=== PATIENT | male | born 1990 | race Caucasian/White ===

== ENCOUNTER → 2017-01-17 | Outpatient (REF) | payer OTHER | LOC: M LAB REF 12:41 | PROVIDERS: ATTEND Physician Assistant | DX: J02.9 Acute pharyngitis, unspecified (principal) ==

== ENCOUNTER → 2018-12-19 | Outpatient (CLI) | payer MEDICAID | LOC: M OUTALCOH 07:53 | PROVIDERS: ATTEND Psychiatry & Neurology Psychiatry | DX: Z13.89 Encounter for screening for other disorder (principal); F15.20 Other stimulant dependence, uncomplicated ==

== ENCOUNTER 2019-01-21 08:45 | Outpatient (RCR) | payer MEDICAID | END 2019-01-22 | LOC: M OUTALCOH 08:45 | PROVIDERS: ATTEND Psychiatry & Neurology Psychiatry | DX: F15.20 Other stimulant dependence, uncomplicated (principal); F17.200 Nicotine dependence, unspecified, uncomplicated ==

== ENCOUNTER → 2019-02-20 | Outpatient (CLI) | payer MEDICAID, OTHER ==
[2019-02-20 10:19] LABS: HEMATOCRIT 52.2 % (42.0-52.0); HEMOGLOBIN 17.8 g/dl (13.5-17.5); MEAN CORPUSCULAR HEMOGLOBIN 29.2 pg (27.0-33.0); MEAN CORPUSCULAR HGB CONC 34.1 g/dl (32.0-36.5); MEAN CORPUSCULAR VOLUME 85.7 fl (80.0-96.0); PLATELET COUNT, AUTOMATED 307 10^3/uL (150-450); RED BLOOD COUNT 6.09 10^6/uL (4.30-6.10); WHITE BLOOD COUNT 10.9 10^3/uL (4.0-10.0)
[2019-02-20 10:42] LABS: ALBUMIN 3.4 GM/DL (3.2-5.2); ALT/SGPT 78 U/L (12-78); BILIRUBIN,TOTAL 0.3 MG/DL (0.2-1.0); BLOOD UREA NITROGEN 11 MG/DL (7-18); CALCIUM LEVEL 8.5 MG/DL (8.5-10.1); CARBON DIOXIDE LEVEL 26 MEQ/L (21-32); CHLORIDE LEVEL 103 MEQ/L (98-107); CHOLESTEROL LEVEL 195 MG/DL (< 200); CREATININE FOR GFR 0.77 MG/DL (0.70-1.30); GLOMERULAR FILTRATION RATE > 60.0 (>60); GLUCOSE, FASTING 123 MG/DL (70-100); POTASSIUM SERUM 4.5 MEQ/L (3.5-5.1); SODIUM LEVEL 138 MEQ/L (136-145); TOTAL PROTEIN 7.6 GM/DL (6.4-8.2); TRIGLYCERIDES LEVEL 155 MG/DL (<150)
[2019-02-20 10:50] LABS: HEPATITIS B SURFACE ANTIBODY POSITIVE (POSITIVE)
[2019-02-20 11:01] LABS: HEPATITIS B SURFACE ANTIGEN NEGATIVE (NEGATIVE)
[2019-02-20 11:20] LABS: HEMOGLOBIN A1c 5.9 %
== END ==
LOC: M LAB 09:41
PROVIDERS: ATTEND Internal Medicine
DX: Z00.00 Encounter for general adult medical examination without abnormal findings (principal); L81.8 Other specified disorders of pigmentation

== ENCOUNTER 2019-02-21 09:00 | Outpatient (RCR) | payer MEDICAID | END 2019-02-22 | LOC: M OUTALCOH 09:00 | PROVIDERS: ATTEND Psychiatry & Neurology Psychiatry | DX: F15.20 Other stimulant dependence, uncomplicated (principal); F17.200 Nicotine dependence, unspecified, uncomplicated ==

== ENCOUNTER 2019-03-05 09:00 | Outpatient (RCR) | payer MEDICAID | END 2019-03-24 | LOC: M OUTALCOH 09:00 | PROVIDERS: ATTEND Psychiatry & Neurology Psychiatry | DX: F15.20 Other stimulant dependence, uncomplicated (principal); F17.200 Nicotine dependence, unspecified, uncomplicated ==

== ENCOUNTER → 2019-04-24 | Outpatient (RCR) | payer MEDICAID | LOC: M OUTALCOH 04-05 13:20 | PROVIDERS: ATTEND Psychiatry & Neurology Psychiatry | DX: F15.20 Other stimulant dependence, uncomplicated (principal); F17.200 Nicotine dependence, unspecified, uncomplicated ==

== ENCOUNTER 2019-05-24 08:45 | Outpatient (RCR) | payer MEDICAID | END 2019-05-25 | LOC: M OUTALCOH 08:45 | PROVIDERS: ATTEND Psychiatry & Neurology Psychiatry | DX: F15.20 Other stimulant dependence, uncomplicated (principal); F17.200 Nicotine dependence, unspecified, uncomplicated ==

== ENCOUNTER 2019-06-20 09:00 | Outpatient (RCR) | payer MEDICAID | END 2019-06-24 | LOC: M OUTALCOH 09:00 | PROVIDERS: ATTEND Psychiatry & Neurology Psychiatry | DX: F15.20 Other stimulant dependence, uncomplicated (principal); F17.200 Nicotine dependence, unspecified, uncomplicated ==

== ENCOUNTER 2019-07-18 09:31 | Outpatient (RCR) | payer MEDICAID | END 2019-07-25 | LOC: M OUTALCOH 09:31 | PROVIDERS: ATTEND Psychiatry & Neurology Psychiatry | DX: F15.20 Other stimulant dependence, uncomplicated (principal); F17.200 Nicotine dependence, unspecified, uncomplicated ==

== ENCOUNTER → 2020-03-02 | Outpatient (CLI) | payer MEDICAID | LOC: M OUTALCOH 08:40 | PROVIDERS: ATTEND Psychiatry & Neurology Addiction Medicine | DX: Z13.39 Encounter for screening examination for other mental health and behavioral disorders (principal); F15.20 Other stimulant dependence, uncomplicated ==

== ENCOUNTER 2020-03-23 13:09 | Outpatient (RCR) | payer MEDICAID | END 2020-03-24 | LOC: M OUTALCOH 13:09 | PROVIDERS: ATTEND Psychiatry & Neurology Addiction Medicine | DX: F15.20 Other stimulant dependence, uncomplicated (principal); Z72.0 Tobacco use ==

== ENCOUNTER 2020-04-22 15:00 | Outpatient (RCR) | payer MEDICAID | END 2020-04-24 | LOC: M OUTALCOH 15:00 | PROVIDERS: ATTEND Psychiatry & Neurology Addiction Medicine | DX: F15.20 Other stimulant dependence, uncomplicated (principal); Z72.0 Tobacco use ==

== ENCOUNTER 2020-05-20 16:00 | Outpatient (RCR) | payer MEDICAID | END 2020-05-25 | LOC: M OUTALCOH 16:00 | PROVIDERS: ATTEND Psychiatry & Neurology Addiction Medicine | DX: F15.20 Other stimulant dependence, uncomplicated (principal); Z72.0 Tobacco use ==

== ENCOUNTER → 2020-06-24 | Outpatient (RCR) | payer MEDICAID | LOC: M OUTALCOH 05-26 15:02 | PROVIDERS: ATTEND Psychiatry & Neurology Addiction Medicine | DX: F15.20 Other stimulant dependence, uncomplicated (principal); Z72.0 Tobacco use ==

== ENCOUNTER 2020-07-23 09:00 | Outpatient (RCR) | payer MEDICAID | END 2020-07-25 | LOC: M OUTALCOH 09:00 | PROVIDERS: ATTEND Psychiatry & Neurology Addiction Medicine | DX: F15.20 Other stimulant dependence, uncomplicated (principal); Z72.0 Tobacco use ==

== ENCOUNTER 2020-08-13 09:00 | Outpatient (RCR) | payer MEDICAID | END 2020-08-24 | LOC: M OUTALCOH 09:00 | PROVIDERS: ATTEND Psychiatry & Neurology Addiction Medicine | DX: F15.20 Other stimulant dependence, uncomplicated (principal); Z72.0 Tobacco use ==

== ENCOUNTER → 2020-08-14 | Outpatient (CLI) | payer SELFPAY | LOC: M LABSMTC 12:57 | PROVIDERS: ATTEND Pediatrics | DX: Z20.828 Contact with and (suspected) exposure to other viral communicable diseases (principal) ==

== ENCOUNTER → 2020-08-30 | Outpatient (CLI) | payer SELFPAY | LOC: M LABSMTC 10:34 | PROVIDERS: ATTEND Pediatrics | DX: Z11.59 Encounter for screening for other viral diseases (principal) ==

== ENCOUNTER 2020-09-22 15:00 | Outpatient (RCR) | payer MEDICAID | END 2020-09-24 | LOC: M OUTALCOH 15:00 | PROVIDERS: ATTEND Psychiatry & Neurology Addiction Medicine | DX: F15.20 Other stimulant dependence, uncomplicated (principal); Z72.0 Tobacco use ==

== ENCOUNTER → 2020-10-06 | Outpatient (CLI) | payer SELFPAY | LOC: M LABSMTC 14:50 | PROVIDERS: ATTEND Pediatrics | DX: Z20.828 Contact with and (suspected) exposure to other viral communicable diseases (principal) ==

== ENCOUNTER 2020-10-23 14:32 | Outpatient (RCR) | payer MEDICAID | END 2020-10-25 | LOC: M OUTALCOH 14:32 | PROVIDERS: ATTEND Psychiatry & Neurology Psychiatry | DX: F15.20 Other stimulant dependence, uncomplicated (principal); Z72.0 Tobacco use ==

== ENCOUNTER 2020-10-30 13:36 | Inpatient (IN) | payer MEDICAID, OTHER ==
[~2020-10-30] VITALS: Ht 175.3 cm; Wt 142.8 kg
--- OUTSIDE RECORDS SUMMARY | 2020-10-30 13:42 | CCD ---
Author Author [facility] Address Unknown Phone Unavailable Care Team Providers Care Instructional Consultant Name Role Phone TURRIN, BRI Unavailable Unavailable TURRIN, BRI Unavailable Unavailable TURRIN, BRI Unavailable Unavailable TURRIN, BRI Unavailable Unavailable JOSETTEJin OWEN MD Unavailable Unavailable JOSETTEJin OWEN MD Unavailable Unavailable JOSETTE, Y MARIBEL REYNOLDS Unavailable Unavailable JOSETTEJin OWEN MD Unavailable Unavailable JOSETTEJin OWEN MD Unavailable Unavailable JOSETTE, Y MARIBEL REYNOLDS Unavailable Unavailable JOSETTE, Y MARIBEL REYNOLDS Unavailable Unavailable JOSETTE, Y MARIBEL REYNOLDS Unavailable Unavailable JOSETTE Y MARIBEL REYNOLDS Unavailable Unavailable JOSETTE Y MARIBEL REYNOLDS Unavailable Unavailable JOSETTE Y MARIBEL REYNOLDS Unavailable Unavailable JOSETTE Y MARIBEL Unavailable Unavailable JOSETTE, Y MARIBEL REYNOLDS Unavailable Unavailable JOSETTE, Y MARIBEL Unavailable Unavailable JOSETTE, Y MARIBEL REYNOLDS Unavailable Unavailable Re-disclosure Warning The records that you are about to access may contain information from federally-assisted alcohol or drug abuse programs. If such information is present, then the following federally mandated warning applies: This information has been disclosed to you from records protected by federal confidentiality rules (42 CFR part 2). The federal rules prohibit you from making any further disclosure of this information unless further disclosure is expressly permitted by the written consent of the person to whom it pertains or as otherwise permitted by 42 CFR part 2. A general authorization for the release of medical or other information is NOT sufficient for this purpose. The Federal rules restrict any use of the information to criminally investigate or prosecute any alcohol or drug abuse patient.The records that you are about to access may contain highly sensitive health information, the redisclosure of which is protected by Article 27-F of the [facility] Public Health law. If you continue you may have access to information: Regarding HIV / AIDS; Provided by facilities licensed or operated by the [facility] Office of Mental Health; or Provided by the [facility] Office for People With Developmental Disabilities. If such information is present, then the following [facility] mandated warning applies: This information has been disclosed to you from confidential records which are protected by state law. State law prohibits you from making any further disclosure of this information without the specific written consent of the person to whom it pertains, or as otherwise permitted by law. Any unauthorized further disclosure in violation of state law may result in a fine or fpc sentence or both. A general authorization for the release of medical or other information is NOT sufficient authorization for further disc losure. Allergies and Adverse Reactions Type Description Substance Reaction Status Data Source(s ) CLASS PENICILLINS (CLASS) PENICILLINS (CLASS) [facility] Family History Family Member Name Family Member Gender Family Member Status Date o f Status Description Data Source(s) Unknown Unknown Problem [facility] ([facility] pgf Encounters Encounter Providers Location Date Indications Data Source(s ) Emergency Attender: BRI ORTIZConsultant: MARIBEL OWEN MD 03/09/2020 12:39:00 PM EDT - 03/09/2020 03:20:00 PM T [facility] Patient discharged. Emergency Attender: BRI Maddoxltant: MARIBEL OWEN MD 03/04/2020 09:27:00 PM EDT - 03/04/2020 10:02:00 PM T [facility] Patient discharged. Medications Medication Brand Name Start Date Product Form Dose Route Admi nistrative Instructions Pharmacy Instructions Status Indications Reaction Description Data Source(s) 8-2 mg 09/03/2020 12:00:00 AM EST tablet, sublingual 30 PLACE ONE TABLET UNDER THE TONGUE EVERY DAY - MAXIMUM DAILY DOSE = 1 PLACE ONE TABLET UNDER THE TONGUE EVERY DAY - MAXIMUM DAILY DOSE = 1 SOLD: 09/04/2020 [facility] 8-2 mg 08/31/2020 12:00:00 AM EST film 7 PLACE ONE FILM UNDER THE TONGUE EVERY DAY MAXIMUM DAILY DOSE = 1 PLACE ONE FILM UNDER THE TONGUE EVERY DA Y MAXIMUM DAILY DOSE = 1 SOLD: 08/31/2020 [facility] 8-2 mg 07/01/2020 12:00:00 AM EDT film 30 USE 1 FILM UNDER THE TONGUE ONCE DAILY MAXIMUM DAILY DOSE =1 FILM USE 1 FILM UNDER THE TONGUE ONCE DAILY M AXIMUM DAILY DOSE =1 FILM SOLD: 07/01/2020 [facility] 100 mg 06/07/2020 12:00:00 AM EDT tablet 30 TAKE ONE TABLET BY MOUTH EVERY DAY TAKE ONE TABLET BY MOUTH EVERY DAY SOLD: 06/16/2020 [facility] 8-2 mg 06/02/2020 12:00:00 AM EDT film 30 PLACE ONE FILM UNDER THE TONGUE EVERY DAY MAXIMUM DAILY DOSE = 1 PLACE ONE FILM UNDER THE TONGUE EVERY DA Y MAXIMUM DAILY DOSE = 1 SOLD: 06/02/2020 [facility] 50 mg 05/29/2020 12:00:00 AM EDT tablet 45 TAKE 1 & 1/2 TABLETS (75MG) BY MOUTH ONCE DAILY TAKE 1 & 1/2 TABLETS (75MG) BY MOUTH ONCE DAILY SOLD: 05/29/2020 [facility] 50 mg 05/28/2020 12:00:00 AM EDT tablet 30 TAKE ONE TABLET BY MOUTH AT BEDTIME NEEDED TAKE ONE TABLET BY MOUTH AT BEDTIME NEEDED SOLD: [facility] 50 mg 05/28/2020 12:00:00 AM EDT tablet 30 TAKE ONE TABLET BY MOUTH AT BEDTIME NEEDED TAKE ONE TABLET BY MOUTH AT BEDTIME NEEDED SOLD: [facility] 8-2 mg 05/03/2020 12:00:00 AM EDT film 45 PLACE ONE FILM UNDER THE TONGUE EVERY MORNING AND PLACE ONE-HALF FILM UNDER THE TONGUE EVERY EVENING MAXIMUM DAILY DOSE = ONE AND ONE-HALF FILMS PLACE ONE FILM UNDER THE TONGUE EVERY MORNING AND PLACE ONE-HALF FILM UNDER THE TONGUE EVERY EVENING MAXIMUM DAILY DOSE = ONE AND ONE-HALF FILMS SOLD: 05/04/2020 [facility] 8-2 mg 04/26/2020 12:00:00 AM EDT film 11 PLACE ONE FILM UNDER THE TONGUE EVERY DAY IN THE MORNING AND 1/2 FILM AT NIGHT MAXIMUM DAILY DOSE = 1 1/[address] ONE FILM UNDER THE TONGUE EVERY DAY IN THE MORNING AND 1/2 FILM AT NIGHT MAXIMUM DAILY DOSE = 1 1/2 FILMS SOLD: 04/27/2020 [facility] 8-2 mg 04/18/2020 12:00:00 AM EDT film 11 PLACE 1 FILM UNDER THE TONGUE IN THE MORNING AND 1/2 AT BEDTIME, MAX DAILY DOSE=1&1/[address] PL[address] 1 FILM UNDER THE TONGUE IN THE MORNING AND 1/2 AT BEDTIME, MAX DAILY DOSE=1&1/2 SOLD: 05/01/2020 [facility] 8-2 mg 03/19/2020 12:00:00 AM EDT film 45 PLACE 1 FILM UNDER THE TONGUE EVERY MORNING AND ONE-HALF FILM AT BEDTIME MAXIMUM DAILY DOSE = 1 AND ONE-HALF FILM PLACE 1 FILM UNDER THE TONGUE EVERY MORN ING AND ONE-HALF FILM AT BEDTIME MAXIMUM DAILY DOSE = 1 AND ONE-HALF FILM SOLD: 03/20/2020 [facility] 40 mg 03/13/2020 12:00:00 AM EDT capsule,delayed release (DR/EC) 30 TAKE CAPSULE BY MOUTH 30 MINUTES BEFORE MORNING MEAL TAKE CAPSULE BY MOUTH 30 MINUTES BEFORE MORNING MEAL SOLD: 05/27/2020 [facility] 150 mg 03/13/2020 12:00:00 AM EDT tablet sustained-releas e 12 hr 60 TAKE TWO TABLETS BY MOUTH EVERY MORNING TAKE TWO TABLETS BY MOUTH EVERY MORNING SOLD: 06/24/2020 [facility] 150 mg 03/13/2020 12:00:00 AM EDT tablet sustained-releas e 12 hr 60 TAKE TWO TABLETS BY MOUTH EVERY MORNING TAKE TWO TABLETS BY MOUTH EVERY MORNING SOLD: 04/17/2020 [facility] 150 mg 03/13/2020 12:00:00 AM EDT tablet sustained-releas e 12 hr 60 TAKE TWO TABLETS BY MOUTH EVERY MORNING TAKE TWO TABLETS BY MOUTH EVERY MORNING SOLD: 05/27/2020 [facility] 40 mg 03/13/2020 12:00:00 AM EDT capsule,delayed release (DR/EC) 30 TAKE CAPSULE BY MOUTH 30 MINUTES BEFORE MORNING MEAL TAKE CAPSULE BY MOUTH 30 MINUTES BEFORE MORNING MEAL SOLD: 08/27/2020 [facility] Omeprazole 40 MG Delayed Release Oral Capsule OMEPRAZOLE 03/13/2020 12:00:00 AM EDT capsule,delayed release(DR/EC) 30 T MIRIAN CAPSULE BY MOUTH 30 MINUTES BEFORE MORNING MEAL TAKE CAPSULE BY MOUTH 30 MINUTES BEFORE MORNING MEAL S OLD: 03/13/2020 [facility] 150 mg 03/13/2020 12:00:00 AM EDT tablet sustained-releas e 12 hr 60 TAKE TWO TABLETS BY MOUTH EVERY MORNING TAKE TWO TABLETS BY MOUTH EVERY MORNING SOLD: 03/13/2020 [facility] 800-160 mg 03/09/2020 12:00:00 AM EDT tablet 20 TAKE ONE TABLET BY MOUTH TWICE A DAY TAKE ONE TABLET BY MOUTH TWICE A DAY SOLD: 03/11/2020 [facility] 300 mg 03/05/2020 12:00:00 AM EDT capsule 30 TAKE ONE CAPSULE BY MOUTH THREE TIMES A DAY FOR 10 DAYS TAKE ONE CAPSULE BY MOUTH THREE TIMES A DAY FOR 10 DAY S SOLD: 03/05/2020 [facility] Insurance Providers Payer name Policy type / Coverage type Policy ID Covered alliance party ID Covered alliance party's relationship to peacock Policy Peacock Plan Information [facility] [id number] SP [id number] SELF PAY ONLY [id number] SP [id number] [facility] AMERICHOICE XIX O [id number] 18 [id number] [facility] AMERICHOICE XIX O [id number] 18 [id number] [facility] PLAN [facility] [id number] SP [id number] ANS-Medicaid [id number] ANSI-Medicaid [id number] [facility] COMMUNITY PLAN [facility] [id number] SP [id number] [facility] [id number] SP [id number] ANS-Medicaid [id number] SELF PAY ONLY UNAVAILABLE SP UNAV AILABLE BCBS/[employer] Commercial [id number] Self YN [id number] [facility]LY [facility] [id number] [id number] [facility] [id number] 18 [id number] [facility]/P [id number] 18 [id number] Problems, Conditions, and Diagnoses Code Display Name Description Problem Type Effective Dates Data Source(s) I03912 Nicotine dependence, cigarettes, uncompl icated Nicotine dependence, cigarettes, uncomplicated Diagnosis 03/09/2020 12:39:00 PM EDT [facility] L723 Sebaceous cyst Sebaceous cyst Diagnosis 03/09/2020 12:39: 00 PM EDT [facility] L988 Other specified disorders of the skin an d subcutaneous tissue Other specified disorders of the skin and subcutaneous tissue Diagnosis 03/09/2020 12:39:00 PM EDT [facility] [id number] Cutaneous abscess of right axilla Cutaneous absc ess of right axilla Diagnosis 03/04/2020 09:27:00 PM EDT [facility] D85375 Furuncle of right axilla Furuncle of right axilla Diag nosis 03/04/2020 09:27:00 PM EDT [facility] Results ID Date Data Source [id number] 10/06/2020 12:00:00 AM EST [facility] Name Value Range Interpretation Code Description Data Catalina rce(s) Supporting Document(s) SARS-CoV-2 (COVID-19) RNA [Presence] in Respiratory specimen by MATIAS with probe detection Not Detected [facility] This lab was ordered by [facility] and reported by [facility]. ID Date Data Source [id number] 10/02/2020 12:00:00 AM EST [facility] Name Value Range Interpretation Code Description Data Catalina rce(s) Supporting Document(s) Carestart Rapid COVID Antigen Test Positive [facility] This lab was reported by [facility]. ID Date Data Source [id number] 08/30/2020 12:00:00 AM EST [facility] Name Value Range Interpretation Code Description Data Catalina rce(s) Supporting Document(s) 2019-nCoV RNA XXX MATIAS+probe-Imp [facility] This lab was ordered by [facility] and reported by [facility] ID Date Data Source [id number] 08/14/2020 12:00:00 AM EST [place] Name Value Range Interpretation Code Description Data Catalina rce(s) Supporting Document(s) 2019-nCoV RNA XXX MATIAS+probe-Imp [facility] This lab was ordered by [facility] and reported by [facility] ID Date Data Source [id number] 03/10/2020 08:52:00 AM EDT [facility] [address] [place] [address] PHONE: [phone] FAX: [phone] Name .................. : MARLON SHIN Acct Number.................. : [id number] ROOM. ................. : TR-04 MR Number ................... : [id number] Stay type ............. : E/R Discharge Date......... ... : 03/09/20 Admit Date ......... : 03/09/20 Admit Phys .................... : ANGEL PELAYO Date of ....... : 1990 Family Phys ................... : JOSETTE ALONZO Phone .................. : [phone] Age ................................ : 29 Film# .................. .:[id number] Sex ................................. : M Unsigned transcriptions are preliminary reports and do not represent a medical or legal document US EXT-NON VASCULAR RT COMPL [id number] COMPLETE:03/09/20 14:15 B 18004 Reason(s): Arm ULTRASOUND OF THE RIGHT AXILLA: INDICATION: Arm swelling. FINDINGS: There is a heterogeneous complex area with irregular margins in the right axilla measuring 2.2 x 3.1 x 2.1 cm. An underlying abscess cannot be excluded. IMPRESSION: Complex area of indeterminant significance and etiology, as discussed above. An underlying abscess is not excluded. Clinical correlation is recommended. Examination dictated by ANDREA Fraire. Examination was reviewed with Steven Roque MD, radiologist at the time of this dictation. Electronically Reviewed and Signed By Steven Roque MD , 03/10/20 08:52, KGG Transcribe Initials: SMITA , Transcribe Date: 03/10/20 01:32, Dictation Date: Copy for: EYAD GARCÍA via fax Copy for: EMERGENCY DEPT via modem Copy for: 710 MED REC DISCHARGED Page 1 of 1 Name Value Range Interpretation Code Description Data Catalina rce(s) Supporting Document(s) ID Date Data Source [id number] 03/09/2020 12:39:00 PM EDT [facility] 1 OrderSheet [facility] Emergency Department [address] [place] [address] Phone #: ext- [phone] 03/09/2020 12:37 Patient: ALEIDA MASON Sex: M : 1990 Age: 29yWEIGHT:125.6 kg (S) HEIGHT:69 inches (S) BMI:40.9ALLERGIES: PenicillinsCHIEF COMPLAINT: lesion, boil, tender areaDIAGNOSIS: Epidermoid cyst of skinLAB ORDERSOrder Description Priority Entered Acknowledged InitialedCulture, Wound STAT 14:58 03/09/2020 15:01 Sinan,(Arm) Luis Angel Brantley R.N. PA;DIAGNOSTIC STUDY ORDERSOrder Description Priority Entered Acknowledged InitialedUS Ext STAT 13:30 03/09/2020 14:09 Sinan,Nonvascular Right Luis Angel Brantley R.N.(Oxygen?(No)) ANDREA; NOTES: Right Axillary Abscss Reason for Study: Arm, Red, SwellingMEDICATION/IV/DRIP/FLUID ORDERSOrder Description Priority Entered Acknowledged InitialedGENERAL ORDERSOrder Description Priority Entered Acknowledged Initialed[Electronically signed by Karon Menon R.N. (15:24 03/09/2020)][Electronically signed by Luis Angel Garcia (21:51 03/09/2020)][Electronically locked by Karon Menon R.N. (15:24 03/09/2020)] Name Value Range Interpretation Code Description Data Catalina rce(s) Supporting Document(s) ID Date Data Source [id number] 03/09/2020 12:39:00 PM EDT [facility] 1 Medication Reconciliation Report [facility] Emergency Department [address] [place] [address] Phone #: ext- [phone] 03/09/2020 12:37 Patient: ALEIDA MASON Sex: M : 1990 Age: 29yWeight: 125.6 kgHeight/Length: 69 in.BMI: 40.9ALLERGIES: PenicillinsThe patient's Home Medications are listed below:CONTINUE TAKING THE FOLLOWING MEDICATIONS: Clindamycin HCl Oral 300 mg, 3x a day Omeprazole Oral 20 mg, daily Suboxone Sublingual (12-3 mg), 2x a day traZODone HCl Oral 100 mg, daily, at bedtime Wellbutrin Oral 300 mg, daily Zoloft Oral 75 mg, dailyThe source(s) of the original Home Medication information:patientThe following Medications were given to the patient in the Emergency Department:None.The following Medications were prescribed to the patient:Bactrim DS 800 mg-160 mg tablet Take 1 tablet twice a day for 10 days -- Dispense 20 tablet. Refills:0. Substitution permitted.Pharmacy - [id number] - [address] [facility] ; [place], [place] [id number]. . -- ANDREA Ware Name Value Range Interpretation Code Description Data Catalina rce(s) Supporting Document(s) ID Date Data Source [id number] 03/09/2020 12:39:00 PM EDT [facility] 1 Medication Administration Record [facility] Emergency Department [address] [place] [address] Phone #: ext [phone] 03/09/2020 12:37 Patient: ALEIDA MASON Sex: M : 1990 Age: 29yWeight: 125.6 kgHeight/Length: 69 inBMI: 40.9ALLERGIES: PenicillinsDate/Time Medication Administered Medication Ordered Name Value Range Interpretation Code Description Data Catalina rce(s) Supporting Document(s) ID Date Data Source [id number] 03/09/2020 12:39:00 PM EDT [facility] 1 General Instructions [facility] Emergency Department [address] [place] [address] Phone #: ext [phone] 03/09/2020 12:37 Patient: ALEIDA MASON Sex: M : 1990 Age: 29ySebaceous cystINSTRUCTIONSWarnings: Further evaluation is necessary.GENERAL WARNINGS: Return or contact your physician immediately if your condition worsens orchanges unexpectedly, if not improving as expected, or if other problems arise. Specifically return if pain orfever worsens.Your Current Medications: Your current home medications have been reviewed.CONTINUE TAKING THE FOLLOWING MEDICATIONS:Clindamycin HCl Oral : 300 mg 3x a day, Started: 03/03/20.Omeprazole Oral : 20 mg daily.Suboxone Sublingual : Film 12-3 mg, 2x a day.traZODone HCl Oral : 100 mg daily, at bedtime.Wellbutrin Oral : 300 mg daily.Zoloft Oral : 75 mg daily.Prescription Medications:Bactrim DS 800 mg- 160 mg tablet Take 1 tablet twice a day for 10 days -- Dispense 20 tablet. Refills:0. Substitution permitted.Pharmacy - [facility] - [address] [place] [address] ; [place], [place] [id number]. .Follow-up:Follow up with your doctor in three days for wound check. Reason for referral: evaluation and treatment.Summary of care provided to patient.Understanding of the discharge instructions verbalized by patient. ADDITIONAL INFORMATIONEpidermoid Cyst (Sebaceous Cyst), Infected (Incision and Drainage)You have an epidermoid cyst. This is a small, painless lump under your skin. An epidermoidcyst (often called a sebaceous cyst, epidermal cyst, or epidermal inclusion cyst) is a term most oftenused for 2 similar types of cysts: 2 General Instructions [facility] Emergency Department [address] [place] [address] Phone #: ext- [phone] 03/09/2020 12:37 Patient: ALIEDA MASON Sex: M : 1990 Age: 29y Epidermoid cysts. These cysts form slowly under the skin. They can be found on most parts of the body. But they are most often found on areas with more hair such as the scalp, face, upper back, and genitals. Pilar cysts. These are similar to epidermoid cysts. But they start from a different part of the hair follicle. They are more likely to be on the scalp.Some general facts about these cysts: A cyst is a sac filled with material that is often cheesy, fatty, oily, or stringy. The material inside them can be thick. Or it can be a thin liquid. You can usually move the cyst slightly if you try. The cysts can be smaller than a pea or as large as a few inches. The cysts are usually not painful, unless they become inflamed or infected. The area around the cyst may smell bad. If the cyst breaks open, the material inside it often smells bad too.Your cyst became inflamed or infected and your healthcare provider wanted to drain it. Gauzepacking may have been inserted into the cyst opening (cavity). This keeps the cyst open so it doesn'tseal up before it has time to drain more. No matter how well it was cleaned out, no cleaning is perfect.The packing will need to be removed.Once the pus is drained, antibiotics may not be needed unless the infection has spread into the skinaround the wound. The wound will take about 1 to 2 weeks to heal, depending on the size of theabscess.Home careThe following will help you care for your wound at home: The wound may d rain for the first 2 days. Cover the opening with a clean dry bandage. If the dressing becomes soaked with blood or pus, change it. If a gauze packing was placed inside the opening of the cyst, it will need to be removed. Your healthcare provider will usually do this after 2 days. If it falls out sooner, do not try to put it back inside the wound. Once the packing is removed, you should wash the area carefully in the shower once a day, until the skin opening has closed. This could take up to 5 days depending on the size of the cyst. It is good to direct the shower spray directly into the opening if this is not too painful. If you were prescribed antibiotics, take them as directed until they are all used up. You may use tuso-xoe-uhzndys pain medicine to control pain, unless another medicine was 3 General Instructions [facility] Emergency Department [address] [place] [address] Phone #: ext- [phone] 03/09/2020 12:37 Patient: ALEIDA MASON Sex: M : 1990 Age: 29y given. If you have chronic liver or kidney disease or ever had a stomach ulcer or GI bleeding, talk with your provider before using these medicines.PreventionOnce this infection has healed, use these prevention tips to avoid another infection: Keep the cyst opening clean by bathing or showering daily. Avoid tight-fitting clothing in the cyst area. Watch for the signs of infection listed below so that treatment may be started early.Follow-up careFollow up with your healthcare provider, or as advised. If a gauze packing was put in your wound, itshould be removed as instructed by your healthcare provider. Check your wound every day for thesigns listed below.When to seek medical adviceCall your healthcare provider right away if any of these occur: Pus continues to come from the cyst 2 days after the incision and drainage Increasing redness around the wound. Increasing local pain or swelling Fever of 100.4F (38C) or higher, or as directed by your provider [id number] [employer]. [address] [place] [address]. All rights reserved. This information is not intended as asubstitute for professional medical care. Always follow your healthcare professional's instructions. You have been given the following additional information: Epidermoid Cyst (Sebaceous Cyst), Infected (Incision and Drainage)(Electronically signed by ANDREA Ware 03/09/2020 21:51) Name Value Range Interpretation Code Description Data Catalina rce(s) Supporting Document(s) ID Date Data Source [id number] 03/09/2020 12:39:00 PM EDT [facility] 1 Clinical Report - Nurses [facility] Emergency Department [address] [place] [address] Phone #: [phone]- [phone] 03/09/2020 12:37 Patient: ALEIDA MASON Sex: M : 1990 Age: 29yTRIAGEArrived by private vehicle. Historian: patient. Accompanied by (Dropped off by fiance).Triage time: 12:38 03/09/2020. Acuity: LEVEL 4.Chief Complaint: BOIL.Alert. No acute distress.Location - right axilla. Onset. (6 days ago). It is described as painful. ( Pt states he was seen in this EDfor the same issue on 03/03/20 however it was just forming. Pt states he was d/c on Clindamycin whichhe is still taking but pt states it is getting bigger/more painful; Pt states he tried to pop it yesterday but wasunsuccessful.).Treatment MEDICAL DOSIMETRIST:(Ibuprofen last dose just prior to arrival 600mg;).SEPSIS SCREEN: SIRS Screen negative: heart rate greater than 90. Sepsis Screen positive. Suspected /confirmed signs of infection present. (12:44 03/09/2020). --12:44 03/09/20 Sonal Calderon R.N.12:43 03/09/20. BP: 126/67. MAP: 86. HR: 96. RR: 20. O2 saturation: 95% on room air. Temp: 98.5 F(temporal). Pain level now: 07/04. --12:44 03/09/20 Sonal Calderon R.N.Weight: 125.6 kg stated. Height/Length: 69 inches Per Patient. BMI: 40.9. --12:38 03/09/20 Sonal Calderon R.N.MedicationsOmeprazole Oral 20 mg, daily. Suboxone Sublingual (Film 12-3 mg), 2x a day. Wellbutrin Oral 300 mg, daily. --12:40 03/09/20 Sonal Calderon R.N. Zoloft Oral 75 mg, daily. --12:40 03/09/20 Sonal Calderon R.N. traZODone HCl Oral 100 mg, daily at bedtime. --12:40 03/09/20 Sonal Calderon R.N. Clindamycin HCl Oral 300 mg, 3x a day, started 03/03/20. --12:41 03/09/20 Sonal Calderon R.N.AllergiesPenicillins.(hives) --12:40 03/09/20 Sonal Calderon R.N.PROBLEMS:Knee Injury.Abscess.Rehab: (Narcotics).Lower Extremity Pain. --12:41 03/09/20 Sonal Calderon R.N. 2 Clinical Report - [facility]es [facility] [facility] [address] [place] [address] Phone #: ext- [phone] 03/09/2020 12:37 Patient: ALEIDA MASON Sex: M : 1990 Age: 29y Medication/allergy information source: the patient. --12:44 03/09/20 Sonal Calderon R.N. ADDITIONAL SURGERIES: Pilonidal cyst. --12:41 03/09/20 Sonal Calderon R.N. History PAST MEDICAL HX: Immunizations: up-to-date. SOCIAL HX: Current every day heavy tobacco smoker (cigarette)- 1 pack per day. No alcohol use or drug use. He was offered HIV testing but declined. Patient education was provided. He was offered hepatitis C testing but declined. Patient education was provided. ( COVID screen negative; Pt came back from [place] on 02/26/20). He has not traveled outside the [place] Infectious disease exposure: No infectious disease exposure. Patient is not a known carrier of tuberculosis, hepatitis, HIV, MRSA or VRE. Patient is not a known carrier of CRE. SELF HARM ASSESSMENT: Self harm assessment was performed. The patient answered "no" to the question(s) "Do you have thoughts of harming or killing yourself?" and "Do you have a plan for harming or killing yourself?". ABUSE ASSESSMENT: Abuse assessment. The patient had positive responses to the question(s) "Do you feel safe in your home?". Abuse denied. No suspicion of abuse. No report of abuse. NUTRITIONAL RISK ASSESSMENT: The nutritional risk assessment revealed no deficiencies. FUNCTIONAL ASSESSMENT: Functional as sessment: no impairments noted. LEARNING NEEDS ASSESSMENT: The learning needs assessment revealed no barriers. FALL RISK ASSESSMENT: Fall risk assessment completed. No risk factors identified. SKIN INTEGRITY ASSESSMENT: Skin integrity risk assessment completed. No skin integrity risk identified. --12:44 03/09/20 Sonal Calderon R.N. Interventions Identification band on patient. --12:44 03/09/20 Sonal Calderon R.N.PHYSICAL ASSESSMENTAmbulatory to room. Patient gowned.GENERAL / NEURO / PSYCH: Alert. The patient does not appear to be in acute distress. Oriented X 4.HEENT: Pupils equal, round and reactive to light. Mucous membranes are pink.RESPIRATORY: Respirations not labored. Breath sounds within normal limits.CVS: Capillary refill less than 2 seconds. Pulses within normal limits.GI / : Abdomen nontender.SKIN: ( boil to right axilla, erythema, warmth and tender to touch.). --12:52 03/09/20 Karon Menon R.N. 3 Clinical Report - Nurses [facility] Emergency Department [address] [place] [address] Phone #: ext- [phone] 03/09/2020 12:37 Patient: ALEIDA MASON Sex: M : 1990 Age: 29yNURSING PROGRESS NOTESPatient gowned. Reassurance given. Call light placed in reach. Bed placed in lowest position. Brakesof bed on. Patient ready for evaluation- PA notified. --12:53 03/09/20 Karon Menon R.N. 12:58 03/09/2020 Site #1 started via IV in the right antecubital space with an 20g angiocath, with aseptic technique and good blood return; one attempt. Saline lock flushed with 10 mL saline. --12:58 03/09/20 Karon Menon R.N. Patient transported to radiology by wheelchair. --14:09 03/09/20 Karon Menon R.N. 14:13 03/09/20. Patient returned from radiology by wheelchair. --14:18 03/09/20 Karon Menon R.N. ( general surgeon into assess patient). --14:35 03/09/20 Karon Menon R.N. I D: Incision and Drainage of abscess performed by ANDREA (ANDREA student and Luis Angel MENDEZ). Assisted by one nurse and tech. Preparation: suture tray set-up with 1% lidocaine. Procedure: skin cleansed with Betadine; a moderate amount of pus was drained. Cavity was packed with gauze. Sample obtained for cultures. Post- procedure: he was stable, no complications and patient tolerated the procedure well. Total time of assist / procedure: (10 minutes). --15:01 03/09/20 Karon Menon R.N. Checked patient name and birthdate. Wound swabbed for culture; collected by nurse. --15:01 03/09/20 Karon Menon R.N.DISPOSITION / DISCHARGE 15:10 03/09/20. BP: 130/84. HR: 78. RR: 19. O2 saturation: 99%. Temp: 98.6 F. Pain level now 5/10. --15:10 03/09/20 Lissie compliance reviewerJaylen Best, ER Tech1 No learning barriers present. Discharge instructions provided and reviewed with the patient. Reviewed medication(s). Prescription(s) sent electronically to pharmacy. Reviewed referral to a primary care physician. Activity restrictions (rest) reviewed. Patient verbalized understanding. Written instructions provided in Dominican. --15:23 03/09/20 Karon Menon R.N. Departure time: 15:19 03/09/2020. --15:24 03/09/20 Karon Menon R.N.Locked/Released at 03/09/2020 15:24 by Karon Mneon R.N. Name Value Range Interpretation Code Description Data Catalina rce(s) Supporting Document(s) ID Date Data Source [id number] 03/09/2020 12:39:00 PM EDT [facility] 1 Clinical Report - Physicians/Mid Levels [facility] Emergency Department [address] [place] [address] Phone #: ext- [phone] 03/09/2020 12:37 Patient: ALEIDA MASON Sex: M : 1990 Age: 29y Time Seen: 12:49 03/09/2020. Arrived- By private vehicle. Historian- patient.HISTORY OF PRESENT ILLNESS Chief Complaint: LESION, BOIL and TENDER AREA. This started 6 days ago and is still present. It is described as moderately painful. It has been located in the right axilla. (29 y/o male presents today for worsening abscess to his R axilla that began 6 days ago. Pt was seen in this ED on 03/03/2020 for same complaint, and d/c home on Clindamycin. Pt reports that abscess to his R axilla began with small area of redness and pain that has been worsening since onset despite Clindamycin regimen. Pt reports erythema began spreading 4 days ago, improved 2 days ago, and worsened again today. the area of pain and hardness has been getting bigger since onset.). Similar symptoms previously. Patient has had similar symptoms several times. ( Hx of prior abscesses and cysts). Recent medical care: The patient was seen recently in the emergency department. ( Recently seen in this ED on 03/03/2020 for same problem, d/c home on Clindamycin).REVIEW OF SYSTEMSNo fever, sore throat, cough, difficulty breathing or hoarseness. No headache, chest pain, abdominalpain, nausea or diarrhea. No vomiting. He has had chills (today).PAST HISTORYProblems:Abscess. Medications: Clindamycin HCl Oral 300 mg, 3x a day, started 03/03/20. traZODone HCl Oral 100 mg, daily at bedtime. Zoloft Oral 75 mg, daily. Omeprazole Oral 20 mg, daily. Suboxone Sublingual (Film 12- 3 mg), 2x a day. Wellbutrin Oral 300 mg, daily. Allergies: Penicillins.(hives).SOCIAL HISTORYCurrent every day heavy tobacco smoker (cigarette)- 1 pack per day. No alcohol use or drug use.ADDITIONAL NOTES 2 Clinical Report - Physicians/Mid Levels [facility] Emergency Department [address] [place] [address] Phone #: ext- [phone] 03/09/2020 12:37 Patient: ALEIDA MASON Sex: M : 1990 Age: 29y The nursing notes have been reviewed.PHYSICAL EXAMVital Signs: 03/09/2020 12:43 BP: 126/67. MAP: 86. HR: 96. RR: 20. O2 saturation: 95% on room air.Temp: 98.5 F. Pain level now: 10/10. Have been reviewed. Oxygen saturation normal.Appearance: Alert. Oriented X3. No acute distress.ENT: Ears normal. Nose normal.Neck: Neck supple.CVS: Normal heart rate and rhythm. Heart sounds normal. Pulses: right radial 2+; left radial 2+; rightdorsalis pedis 2+; left dorsalis pedis 2+; right posterior tibial 2+; left posterior tibial 2+.Respiratory: No respiratory distress. Breath sounds normal. Chest nontender.Abdomen: Nontender.Skin: Skin warm and dry. Normal skin color. Erythema with tenderness to right axilla. Single mediumabscess to right axilla (length:4 cm width:3 cm). There is induration.Extremities: Extremities nontender. Right shoulder. Limited ROM due to pain (diminished internalro tation). Neurovascular intact distally.Neuro: Oriented X 3. No motor deficit. No sensory deficit.LABS, X-RAYS, AND EKGUpper Extremity Sonography: Negative exam on the right side. 2.2 x 3.1 x 2.1cm complex structure atarea of interest, can't exclude abscess. The exam was performed by a master motorcycle technician. The study wasinterpreted by the radiologist and contemporaneously by me. Interpretation time: 15:03/09/2020.PROGRESS AND PROCEDURESIncision Drainage of Abscess: Time: 14:45 03/09/2020. The abscess is located in the right shoulder.The risks of the procedure, benefits and alternatives were explained. Consent was obtained. Localanesthesia provided using 1% lidocaine with epi. Skin cleansed with Betadine. Ultrasound utilized toconfirm presence of abscess. The abscess was incised with a #11 surgical blade. Cavity was irrigated withsaline and packed with gauze. Sample obtained for cultures and gram stain. A dressing was applied.Estimated blood loss: 2 mL. Course of Care: 14:59 Mar 09 2020. Evaluation after observation. (Discussed with Dr Escalera who examined pt in the ED and recommended I and D, pt is agreeable with dx and tx plan.). Patient counseled in person regarding the patient's stable condition, test results, diagnosis and need for follow-up. Patient agrees with plan of care. 15:Mar 09 2020. Disposition: Discharged home in good and improved condition (15:02 Mar 09 2020).CLINICAL IMPRESSION Sebaceous cyst 3 Clinical Report - Physicians/Mid Levels [facility] Emergency Department [address] [place] [address] Phone #: ext- [phone] 03/09/2020 12:37 Patient: ALEIDA MASON Sex: M : 1990 Age: 29yINSTRUCTIONS Warnings: Further evaluation is necessary. GENERAL WARNINGS: Return or contact your physician immediately if your condition worsens or changes unexpectedly, if not improving as expected, or if other problems arise. Specifically return if pain or fever worsens. Your Current Medications: Your current home medications have been reviewed. CONTINUE TAKING THE FOLLOWING MEDICATIONS: Clindamycin HCl Oral : 300 mg 3x a day, Started: 03/03/20. Omeprazole Oral : 20 mg daily. Suboxone Sublingual : Film 12-3 mg, 2x a day. traZODone HCl Oral : 100 mg daily, at bedtime. Wellbutrin Oral : 300 mg daily. Zoloft Oral : 75 mg daily. Prescription Medications: Bactrim DS 800 mg-160 mg tablet Take 1 tablet twice a day for 10 days -- Dispense 20 tablet. Refills: 0. Substitution permitted. Pharmacy - [id number] - [address] [place] [address] ; [place], [place] [phone]. . Follow- up: Follow up with your doctor in three days for wound check. Reason for referral: evaluation and treatment. Summary of care provided to patient. Understanding of the discharge instructions verbalized by patient.(Electronically signed by ANDREA Ware 03/09/2020 21:51) Name Value Range Interpretation Code Description Data Catalina rce(s) Supporting Document(s) ID Date Data Source [id number] 03/12/2020 10:22:00 PM EDT [facility] Name Value Range Interpretation Code Description Data Catalina rce(s) Supporting Document(s) CULTURE WOUND [facility] _CULTURE WOUND_$$[id number] DATE/TIME: 03/12/2020 17:06Culture: CULTURE WOUND Status: FinalIsolate 1 Staphylococcus aureus Flag: A . . . . . . .3Heavy growthMethicillin resistant (MRSA)Based on resistance to oxacillin this isolate would be resistant toall currently available beta-lactam antimicrobial agents, with theexception of the newer cephalosporins with anti-MRSA activity, such asCeftaroline Previous result entered on 03/12/2020 05:50 ET Staphylococcus aureusAerobic Bacterial Culture: [id number] aureus Flag: APatient: MARLON SHIN Order: [id number] Page 2Culture: CULTURE WOUND Status: Final ISOLATE 1 Staphylococcus aureus Isolate 1Antibiotic MALENA IntUnits ug/mL Ciprofloxacin R R . . . . . .185-9Clindamycin R R . . . . . .193- 3Erythromycin R R . . . . . .233-7Gentamicin S S . . . . . .267-5Levofloxacin I I . . . . . .56672-4Ghoikoobe S S . . . . . .63538-7Orzjjjebs R R . . . . . .383-0Penicillin R R . . . . . .6932-8Rifampin S S . . . . . .428- 3Tetracycline S S . . . . . .496-0Trimethoprim/Sulfa S S . . . . . .516-5Vancomycin S S . . . . . .524-9P1 Test performed by: [facility] #: [id number] [address] [place] [id number] [facility] [id number] Director : Tim Goodrich MD NPI #:Gas Pump Attendant : 03/12/20.0716.XMT.SENT REF 03/12/20.2222.XMT.SENT REF ID Date Data Source [id number] 03/04/2020 09:27:00 PM EDT [facility] 1 OrderSheet [facility] Emergency Department [address] [place] [address] Phone #: ext- [phone] 03/04/2020 21:16 Patient: ALEIDA MASON Sex: M : 1990 Age: 29yWEIGHT:125.6 kg (S) HEIGHT:69 inches (S) BMI:40.9ALLERGIES: PenicillinsCHIEF COMPLAINT: boil, tender areaDIAGNOSIS: AbscessLAB ORDERSOrder Description Priority Entered Acknowledged InitialedDIAGNOSTIC STUDY ORDERSOrder Description Priority Entered Acknowledged InitialedMEDICATION/IV/DRIP/FLUID ORDERSOrder Description Priority Entered Acknowledged InitialedClindamycin PO 21:50 03/04/2020 21:56 Agwjdp053 mg Florencio Amos RN P.A.-C;Toradol IM 30 mg 21:50 03/04/2020 21:57 Chris Amos RN P.A.-C;THM Clindamycin 21:52 03/04/2020 21:58 StevenPO 300 mg Florencio Amos RN P.A.-C;GENERAL ORDERSOrder Description Priority Entered Acknowledged Initialed[Electronically signed by Chris Amos RN (22:02 03/04/2020)][Electronically signed by Florencio HernandezA.-C (22:16 03/04/2020)][Electronically locked by Chris Amos RN (22:02 03/04/2020)] Name Value Range Interpretation Code Description Data Catalina rce(s) Supporting Document(s) ID Date Data Source [id number] 03/04/2020 09:27:00 PM EDT [facility] 1 Medication Reconciliation Report [facility] Emergency Department [address] [place] [address] Phone #: ext- [phone] 03/04/2020 21:16 Patient: ALEIDA MASON Sex: M : 1990 Age: 29yWeight: 125.6 kgHeight/Length: 69 in.BMI: 40.9ALLERGIES: PenicillinsThe patient's Home Medications are listed below:CONTINUE TAKING THE FOLLOWING MEDICATIONS: Omeprazole Oral Suboxone Sublingual Wellbutrin Oral Zoloft OralThe source(s) of the original Home Medication information:Not obtained.The following Medications were given to the patient in the Emergency Department:Clindamycin [PO] PO 300 mg, administered: 03/04/2020 9:56:00 PMToradol [IM] IM 30 mg, administered: 03/04/2020 9:57:00 PMClindamycin [PO] PO 300 mg, administered: 03/04/2020 9:58:00 PMThe following Medications were prescribed to the patient:clindamycin HCl 300 mg capsule Take 1 capsule three times a day for 10 days -- Dispense 30 capsule.Refills: 0. Substitution permitted.Pharmacy - [id number] - [address] [place] [phone]. . -- Florencio Hernandez P.A.-C Name Value Range Interpretation Code Description Data Catalina rce(s) Supporting Document(s) ID Date Data Source [id number] 03/04/2020 09:27:00 PM EDT [facility] 1 Medication Administration Record [facility] Emergency Department [address] [place] [address] Phone #: ext- [phone] 03/04/2020 21:16 Patient: ALEIDA MASON Sex: M : 1990 Age: 29yWeight: 125.6 kgHeight/Length: 69 inBMI: 40.9ALLERGIES: Penicillins Date/Time Medication Administered Medication OrderedGiven CLINDAMYCIN [PO] Clindamycin PO 300 mg21:56 03/04/2020 Dose: 300 mg Capsules POStclaudia Amos RNGiven TORADOL [IM] (KETOROLAC Toradol IM 30 mg21:57 03/04/2020 TROMETHAMINE)Chris Amos RN Dose: 30 mg IMGiven CLINDAMYCIN [PO] THM Clindamycin PO 300 mg21:58 03/04/2020 Dose: 300 mg Capsules POStclaudia Amos RN Name Value Range Interpretation Code Description Data Catalina rce(s) Supporting Document(s) ID Date Data Source [id number] 03/04/2020 09:27:00 PM EDT [facility] 1 General Instructions [facility] Emergency Department [address] [place] [address] Phone #: ext- [phone] 03/04/2020 21:16 Patient: ALEIDA MASON Sex: M : 1990 Age: 29ySingle superficial abscess to the right axilla.INSTRUCTIONSTake Tylenol (Acetaminophen) or Motrin (Ibuprofen) as needed for fever control. Take medicationaccording to label instructions.Take clear liquids only. No dietary restrictions. Do not smoke.(Recommend to utilize OTC Motrin and Tylenol to control inflammation and pain management.Recommend to follow the instructions on the bottle and not to exceed.).Warnings: GENERAL WARNINGS: Return or contact your physician immediately if your conditionworsens or changes unexpectedly, if not improving as expected, or if other problems arise.Your Current Medications: Your current home medications have been reviewed.CONTINUE TAKING THE FOLLOWING MEDICATIONS:Omeprazole Oral.Suboxone Sublingual.Wellbutrin Oral.Zoloft Oral.Prescription Medications:clindamycin HCl 300 mg capsule Take 1 capsule three times a day for 10 days -- Dispense 30 capsule.Refills: 0. Substitution permitted.Pharmacy - [facility] - [address] [facility] ; [place], [place] [phone]. .Follow-up:Return to the emergency department as needed. Follow up with your healthcare provider in about twodays if not better. Call for an appointment.Understanding of the discharge instructions verbalized by patient. ADDITIONAL INFORMATIONAbscess (Antibiotic Treatment Only)An abscess (sometimes called a "boil") happens when bacteria get trapped under the skin and start to 2 General Instructions [facility] Emergency Department [address] [place] [address] Phone #: ext- [phone] 03/04/2020 21:16 Patient: ALEIDA MASON Sex: M : 1990 Age: 29ygrow. Pus forms inside the abscess as the body responds to the bacteria. An abscess can happenwith an insect bite, ingrown hair, blocked oil gland, pimple, cyst, or puncture wound.In the early stages, your wound may be red and tender. For this stage, you may get antibiotics. If theabscess does not get better with antibiotics, it will need to be drained with a small cut.Home careThese tips will help you care for your abscess at home: Soak the wound in hot water or apply hot packs (small towel soaked in hot water) to the area for 20 minutes at a time. Do this 3 to 4 times a day. Do not cut, squeeze, or pop the boil yourself. Apply antibiotic cream or ointment to the skin 3 to 4 times a day, unless something else was prescribed. Some oi ntments include an antibiotic plus a pain reliever. If your doctor prescribed antibiotics, do not stop taking them until you have finished the medicine or the doctor tells you to stop. You may use an qfjg-nla-yakbqfh pain medicine to control pain, unless another pain medicine was prescribed. If you have chronic liver or kidney disease or ever had a stomach ulcer or gastrointestinal bleeding, talk with your doctor before using these any of these.Follow-up careFollow up with your healthcare provider, or as advised. Check your wound each day for the signs ofworsening infection listed below.When to seek medical adviceGet prompt medical attention if any of these occur: An increase in redness or swelling Red streaks in the skin leading away from the abscess An increase in local pain or swelling Fever of 100.4F (38C) or higher, or as directed by your healthcare provider Pus or fluid coming from the abscess Boil returns after getting better [id number] [employer]. [address] [place] [address]. All rights reserved. This information is not intended as a 3 General Instructions [facility] Emergency Department [address] [place] [address] Phone #: ext- [phone] 03/04/2020 21:16 Patient: ALEIDA MASON Sex: M : 1990 Age: 29ysubstitute for professional medical care. Always follow your healthcare professional's instructions.Staph Infection (MRSA)Staph is the short name for the common bacteria called staphylococcus aureus. Staph bacteria areoften present on the skin without causing an infection. If it gets inside the skin, an infection occurs.This causes redness, tenderness, swelling, and sometimes fluid drainage.MRSA stands for methicillin-resistant staph aureus. Unlike a common staph infection, MRSA bacteriaare resistant to the usual antibiotics and harder to treat. Also, MRSA can cause more troublesomeand recurrent skin infections than common staph bacteria. It is also more likely to spread throughoutthe body and cause a life-threatening illness, though this is unusual.MRSA is spread to others by direct physical contact with the bacteria. MRSA can also be spread fromitems contaminated by a person who has the bacteria, such as bandages, towels, bed sheets, hardsurfaces, or sports equipment. It is generally not spread through the air. But you can get it if youcome in direct contact with the fluid from someone's cough or sneeze. Once you have a MRSA skininfection, you are at risk of having it again.If your healthcare provider thinks you have a MRSA infection, he or she may take a wound culture toconfirm the diagnosis. If you have an abscess, your provider may drain it. He or she may prescribeone or more antibiotics that work against MRSA and may recommend that you clean your skin, theskin of your closest contacts, and things that you touch or wear to get rid of chronic MRSA infection atthese sites.Home care Take any antibiotics prescribed exactly as directed. Don't stop taking them until they are gone or your healthcare provider tells you to stop, even if you feel better. If your healthcare provider prescribed disinfecting washes (such as chlorhexidine 4% soap) or antibiotic ointment, use it as directed. Cover your wounds with clean, dry bandages. Change dressings as they become soiled. Wash your hands well each time you change the bandage or touch the wound. Remove any artificial nails and nail amharic.Treating household members and your environmentIf you have been diagnosed with possible MRSA infection, those living with you are at higher risk ofcarrying the bacteria on their skin or in their nose, even if there is no sign of infection. Bacteria mustbe removed from the skin of all household members at the same time so it is not passed back andforth. Advise them to remove the bacteria as follows: Household member should wash with chlorhexidine 4% soap as well. 4 General Instructions [facility] Emergency Department [address] [place] [address] Phone #: ext- [phone] 03/04/2020 21:16 Patient: ALEIDA MASON Sex: M : 1990 Age: 29y If anyone in the household has a skin infection, it must be treated by a healthcare provider. Clean counter tops, other hard surfaces that you contact, and children's toys. Don't share personal items such as toothbrush and razors.Preventing spread of infection Wash your hands often with plain soap and warm water. Be sure to clean under the fingernails, between the fingers, and the wrists. Dry hands with a single use towel (for example a paper towel). If soap and water are not available, you can use an alcohol-based hand dairy consultant. Rub the saniti zer over the entire surface of the hands, fingers, and wrists until dry. Don't share personal items such as towels, washcloths, razors, clothing, or uniforms. Wash soiled sheets, towels or clothes in hot water with laundry detergent. Use an automatic clothes dryer set on high to kill any remaining bacteria. If you use a gym, wipe down equipment with an alcohol-based dairy consultant before and after each use. Wipe the handgrips as well. If you participate in sports, shower with plain soap after every activity. Use a clean towel for each shower.Follow-up careFollow-up with your healthcare provider, or as advised. If a wound culture was taken, call as directedfor the results. You will be told about any changes to your treatment.If you are diagnosed with MRSA, tell medical personnel in the future that you have been treated forthis type of infection.When to seek medical adviceCall your healthcare provider if any of the following occur: Increasing redness, swelling or pain Red streaks in the skin around the wound Weakness or dizziness New appearance of pus or drainage from the wound New fever over 100.4 F (38.0 C), or as directed by the healthcare provider [id number] [employer]. [address] [place] [address]. All rights reserved. This information is not intended as asubstitute for professional medical care. Always follow your healthcare professional's instructions. 5 General Instructions [facility] Emergency Department [address] [place] [address] Phone #: ext- [phone] 03/04/2020 21:16 Patient: SECH, ALEIDA Sex: M : 1990 Age: 29yYou have been given the following additional information:Abscess, Antibiotic Treatment OnlyStaph Skin Infection, Possible MRSA(Electronically signed by Florencio Hernandez P.A.-C 03/04/2020 22:16) Name Value Range Interpretation Code Description Data Catalina rce(s) Supporting Document(s) ID Date Data Source [id number] 03/04/2020 09:27:00 PM EDT [facility] 1 Clinical Report - Nurses [facility] Emergency Department [address] [place] [address] Phone #: ext- [phone] 03/04/2020 21:16 Patient: ALEIDA MASON Sex: M : 1990 Age: 29yTRIAGEArrived by private vehicle. Historian: patient.Triage time: 21:18 03/04/2020. Acuity: LEVEL 4.Chief Complaint: BOIL.Reported as located in the right axilla. This started last night. It is described as moderately painful.Treatment MEDICAL DOSIMETRIST:None.SEPSIS SCREEN: Sepsis Screen negative. No suspected or confirmed signs of infection present. --21: Chris Amos RN21:18 03/04/20. BP: 149/61 (regular adult cuff) taken on the right arm, via an automated monitor, whilesitting. MAP: 90. HR: 77 (regular, normal rate and strong). RR: 16 (regular, unlabored and normal). [id number]: 94% on room air. Temp: 98.3 F. Pain level now: 04/03. --21:21 03/04/20 Chris Amos RN.Weight: 125.6 kg stated. Height/Length: 69 inches Per Patient. BMI: 40.9. --21:18 03/04/20 Chris Amos RN.MedicationsOmeprazole Oral. --21:43 03/04/20 Chris Amos RN Zoloft Oral. --21:43 03/04/20 Chris Amos RN Wellbutrin Oral. --21:43 03/04/20 Chris Amos RN Suboxone Sublingual. --21:43 03/04/20 Chris Amos RNThe following entry was struck by Chris Amos RN, 21:42 (03/04/20) Reason - other. None. --21:33 03/04/20 Chris Amos RN .AllergiesPenicillins.(hives) --21:33 03/04/20 Chris Amos RN.PROBLEMS:Knee Injury.Lower Extremity Pain.Rehab: (Narcotics). --:33 03/04/20 Chris Amos RN.HistorySOCIAL HX: Current every day heavy tobacco smoker (cigarette)- 1 pack per day. No alcohol use or druguse. The patient was offered HIV testing but declined and hepatitis C testing but declined. The patient 2 Clinical Report - Nurses [facility] Emergency Department [address] [place] [address] Phone #: [phone] 03/04/2020 21:16 Patient: ALEIDA MASON Sex: M : 1990 Age: 29y has not traveled outside the [place] Infectious disease exposure: No infectious disease exposure. SELF HARM ASSESSMENT: Self harm assessment was performed. The patient answered "no" to the question(s) "Have you recently felt down, depressed, or hopeless?", "Do you have thoughts of harming or killing yourself?", "Do you have a plan for harming or killing yourself?", "Have you recently had thoughts about harming or killing others?", "Do you have any dangerous items in your possession?", "Have you noticed less interest or pleasure in doing things?", "Are you here because you tried to hurt yourself?" and "Have you ever tried to hurt yourself before today?". ABUSE ASSESSMENT: No report of abuse. FALL RISK ASSESSMENT: Fall risk assessment completed. No risk factors identified. --21:03/04/20 Chris Amos RN PAST MEDICAL HX: Immunizations: up-to-date. --21:33 03/04/20 Chris Amos RN. Assessment The patient states feels the same. --:03/04/20 Chris Amos RN.PHYSICAL ASSESSMENTAmbulatory to room.GENERAL / NEURO / PSYCH: Alert. The patient does not appear to be in acute distress. Oriented X 4.HEENT: Pupils equal, round and reactive to light. Mucous membranes are pink.RESPIRATORY: Respirations not labored.CVS: Capillary refill less than 2 seconds. Pulses within normal limits.GI / : Abdomen nontender.SKIN: Skin is intact, warm and dry. Normal skin turgor. Tenderness present in the right axilla. Swellingpresent in the right axilla. --:03/04/20 Chris Amos RN.NURSING PROGRESS NOTESReassurance given to the patient. Call light placed in reach of patient. Bed placed in lowest position.Brakes of bed on. Patient ready for evaluation- ED physician and PA notified. --:03/04/20 STEPHANIE Ca 21:56 03/04/2020 Clindamycin PO Capsules 300 mg given. Allergies verified and confirmed 5 rights. Information reviewed with patient including reason for taking this medication, signs of allergic reaction and precautions. Verbalizes understanding. --21:56 03/04/20 Chris Amos RN 21:57 03/04/2020 Toradol (Ketorolac Tromethamine) IM 30 mg given. Given in the left deltoid. Allergies verified and confirmed 5 rights. Information reviewed with patient including reason for taking this medication, signs of allergic reaction and precautions. Verbalizes understanding. --21:57 03/04/20 Chris Amos RN 3 Clinical Report - Nurses [facility] Emergency Department [address] [place] [address] Phone #: ext- [phone] 03/04/2020 21:16 [id number] Sex: M : 1990 Age: 29y 21:58 03/04/2020 Clindamycin PO Capsules 300 mg given. Allergies verified and confirmed 5 rights. Information reviewed with patient including reason for taking this medication, signs of allergic reaction and precautions. Verbalizes understanding. (This is a take home medication. Take 300mg in the morning Patient verbalizes understanding of these instructions). --21:58 03/04/20 Chris Amos RN.DISPOSITION / DISCHARGE No learning barriers present. Reviewed medication(s) side effects, precautions, dosing and course information. Prescription(s) sent electronically to pharmacy. Reviewed referral to family practice for followup. Reviewed need to stop smoking. Patient verbalized understanding. Written instructions provided in Dominican. The patient was discharged home and accompanied by network security engineer. He left via private vehicle. Garment Examiner driving. --22:01 03/04/20 Chris Amos RN 22:00 03/04/20. BP: 138/87 (regular adult cuff) taken on the left arm, via an automated monitor, while sitting. MAP: 104. HR: 84 (regular, normal rate and strong). RR: 16 (regular, unlabored and normal). O2 saturation: 98% on room air. Temp: 98.3 F (oral). Pain level now: 03/04. --22:01 03/04/20 Chris Amos RN Departure time: 22:01 03/04/2020. --22:01 03/04/20 Chris Amos RN.Locked/Released at 03/04/2020 22:02 by Chris Amos RN Name Value Range Interpretation Code Description Data Catalina rce(s) Supporting Document(s) ID Date Data Source [id number] 03/04/2020 09:27:00 PM EDT [facility] 1 Clinical Report - Physicians/Mid Levels [facility] Emergency Department [address] [place] [address] Phone #: ext- [phone] 03/04/2020 21:16 Patient: ALEIDA MASON Sex: M : 1990 Age: 29y Time Seen: 21:43 03/04/2020; initial patient contact, initial documentation. Arrived- By private vehicle. Historian- patient.HISTORY OF PRESENT ILLNESS Chief Complaint: BOIL and TENDER AREA. This started last night and is still present. It is described as painful. Not burning. It has been located in the right axilla. No cause has been identified. No recent medication, insect bite or food exposure. Was not recently exposed to poison chanell or poison oak. (Pt has had boils/abscesses in the past. Noted this yesterday (early) and watched and manipulated last night and felt a pop. May have caused more redness. Due to hx, wnated to have evaluated and tx'ed before ; sts he was septic due to a pilonidal in 2006. No fevers, weight loss, CP, SOB, dypnea, or cat expsoure/scratches.). Similar symptoms previously. Patient has had similar symptoms frequently. Recent medical care: Not recently seen/assessed.REVIEW OF SYSTEMSNo fever, chills, sore throat, cough or difficulty breathing. No hoarseness, lump in throat, enlarged lymphnodes, headache or eye irritation. No chest pain, abdominal pain, nausea, diarrhea or difficulty withurination. No joint pain or vomiting. All other systems reviewed and are negative.PAST HISTORYSee nurses notes. Problems: Knee Injury. Lower Extremity Pain. Rehab. Additional Surgeries: Pilonidal cyst. Medications: Suboxone Sublingual. Wellbutrin Oral. Zoloft Oral. Omeprazole Oral. Allergies: Penicillins.(hives). 2 Clinical Report - Physicians/Mid Levels [facility] Emergency Department [address] [place] [address] Phone #: ext- [phone] 03/04/2020 21:16 Patient: ALEIDA MASON [facility]#: [id number] Sex: M : 1990 Age: 29ySOCIAL HISTORYHeavy tobacco smoker- less than 1 pack per day. No alcohol use or drug use.ADDITIONAL NOTESThe nursing notes have been reviewed.PHYSICAL EXAMVital Signs: 03/04/2020 21:18 BP: sitting 149/61. MAP: 90. HR: 77. RR: 16. O2 saturation: 94% on roomair. Temp: 98.3 F. Pain level now: 04/03.Appearance: Alert. Oriented X3. No acute distress.ENT: Voice normal.CVS: Normal heart rhythm and rate. No JVD present. Pulses normal. Capillary refill normal. Strongper ipheral pulses. Heart sounds normal. Pulses: right radial 2+; left radial 2+.Respiratory: Chest normal on inspection. No respiratory distress. Unlabored respirations. Lungs clear.Good chest movement. Breath sounds normal and equal.Skin: Erythema. Tender indurated area. Cellulitis. Abscess. Rash present on the right shoulder (Raxilla). Not vesicular, pustular or bullous. The rash is erythematous. There is warmth, induration,tenderness and swelling. (No flucutacne noted, induration noted.).Neuro: Awake. Alert. Mood/affect normal. Speech normal. No motor deficit. No sensory deficit.Psych: Cognition normal. Thought process and content normal. Insight and judgement normal.PROGRESS AND PROCEDURESCourse of Care: VSS, NAD, AOx3, interacting well and appropriately, no use of accessory muscle, able tospeak full sentences, stable, non-toxic looking. Enter room and pt lying peacefully in bed in NAD. Patient stable. Denies any new issues, concerns, or complaints. PE demos early boil/lesion. No fluctance; noted induration. Pt has had in marissa past and does not want to have it worsen. Enter room and patient lying peacefully in bed in NAD. Patient stable. Denies any new issues, concerns, or complaints. Discussed results with pt. Discussed tx plan with pt. Discussed and counseled on stable condition. Discussed importance of a f/u with PCP. Discussed return to ER criteria. Answered their questions. Indicates and verbalizes that they understand, agree, and will comply with above. Denies any new questions or concerns. Patient has capacity to understand. Discharge decision based on the following: patient's con dition is stable; patient's exam is stable; social support is adequate; transportation is available; follow-up is available. Discussed of OTC Motrin and Tylenol to control inflammation and pain management. Informed to follow directions on bottle that are appropriate for age and/or weight. 3 Clinical Report - Physicians/Mid Levels [facility] Emergency Department [address] [place] [address] Phone #: [phone] 03/04/2020 21:16 Patient: ALEIDA MASON Sex: M : 1990 Age: 29y Disposition: Discharged home in good and improved condition. Condition: good and stable.CLINICAL IMPRESSION Single superficial abscess to the right axilla.INSTRUCTIONS Take Tylenol (Acetaminophen) or Motrin (Ibuprofen) as needed for fever control. Take medication according to label instructions. Take clear liquids only. No dietary restrictions. Do not smoke. (Recommend to utilize OTC Motrin and Tylenol to control inflammation and pain management. Recommend to follow the instructions on the bottle and not to exceed.). Warnings: GENERAL WARNINGS: Return or contact your physician immediately if your condition worsens or changes unexpectedly, if not improving as expected, or if other problems arise. Your Current Medications: Your current home medications have been reviewed. CONTINUE TAKING THE FOLLOWING MEDICATIONS: Omeprazole Oral. Suboxone Sublingual. Wellbutrin Oral. Zoloft Oral. Prescription Medications: clindamycin HCl 300 mg capsule Take 1 capsule three times a day for 10 days -- Dispense 30 capsule. Refills: 0. Substitution permitted. Pharmacy - [id number] - [address], [place] [id number]. . Follow-up: Return to the emergency department as needed. Follow up with your healthcare provider in about two days if not better. Call for an appointment. Understanding of the discharge instructions verbalized by patient.(Electronically signed by Florencio Hernandez P.A.-C 03/04/2020 22:16) 4Clinical Report - Physicians/Mid Levels [facility] Emergency Department [address] [place] [address] Phone #: [phone]- [phone] 03/04/2020 21:16 Patient: ALEIDA MASON Sex: M : 1990 Age: 29y Name Value Range Interpretation Code Description Data Catalina rce(s) Supporting Document(s) Procedure
[2020-10-30] MEDS ORDERED: BUNA10MI (13:44)
[2020-10-30] MEDS ORDERED: ARIP1TAB6 PO (13:44)
[2020-10-30] MEDS ORDERED: OMEP-221 PO (13:44)
[2020-10-30] MEDS ORDERED: BUPR150T4 PO (13:44)
[2020-10-30] MEDS ORDERED: TRAZ-257 PO (13:44)
[2020-10-30] MEDS ORDERED: SERT50TA29 PO (13:44)
[2020-10-30] MEDS ORDERED: LIDOCAINE 2% MDV 20ML VIAL SC ONE (15:00)
--- OUTSIDE RECORDS SUMMARY | 2020-10-30 15:23 | CCD ---
Author Author [facility] Address Unknown Phone Unavailable Care Team Providers Care Member Of Congress Name Role Phone TURRIN, BRI Unavailable Unavailable [...] is protected by Article 27-F of the [facility] Public Health law. If you continue you may have access to information: Regarding HIV / AIDS; Provided by facilities licensed or operated by the [facility] Office of Mental Health; or Provided by the [facility] Office for People With Developmental Disabilities. If such information is present, then the following [facility] mandated warning applies: This information has been [...] law may result in a fine or halfway sentence or both. A general authorization for the release of medical or other information is NOT sufficient authorization for further disc losure. Allergies and Adverse Reactions Type Description Substance Reaction Status Data Source(s ) CLASS PENICILLINS (CLASS) PENICILLINS (CLASS) [facility] Family History Family Member Name Family Member Gender Family Member Status Date o f Status Description Data Source(s) Unknown Unknown Problem [facility] ([facility]) pgf Encounters Encounter Providers Location Date Indications Data Source(s ) Emergency Attender: BRI ORTIZConsultant: MARIBEL OWEN MD 03/09/2020 12:39:00 PM EDT - 03/09/2020 03:20:00 PM T [facility] Patient discharged. Emergency Attender: BRI Maddoxltant: MARIBEL OWEN MD 03/04/2020 09:27:00 PM EDT - 03/04/2020 10:02:00 PM T [facility] Patient discharged. Medications Medication Brand Name [...] type / Coverage type Policy ID Covered republican ID Covered republican's relationship to peacock Policy Peacock Plan Information [facility] COMMUNITY [facility] [id number] SP [id number] [facility] [id number] SP [id number] SELF PAY ONLY [id number] SP [id number] [facility] AMERICHOICE XIX O [id number] 18 [id number] [facility] AMERICHOICE XIX [facility] [id number] 18 [id number] [facility] COMMUNITY [facility]AN [facility] [id number] SP [id number] [facility]-Medicaid [id number] ANS-Medicaid [id number] [facility] [id number] SP [id number] ANS-Medicaid [id number] SELF PAY ONLY UNAVAILABLE SP UNAV AILABLE BCBS/[employer] Commercial [id number] Self YN [id number] [facility] [id number] FA2 [id number] [facility]-PHYSICIAN [id number] 18 [id number] [facility]/P [id number] Problems, Conditions, and Diagnoses Code Display Name Description Problem Type Effective Dates Data Source(s) E25224 Nicotine dependence, cigarettes, uncompl icated Nicotine dependence, cigarettes, uncomplicated Diagnosis 03/09/2020 12:39:00 PM EDT [facility] L723 Sebaceous cyst Sebaceous cyst Diagnosis 03/09/2020 12:39: 00 PM EDT [facility] L988 Other specified disorders of the skin an d subcutaneous tissue Other specified disorders of the skin and subcutaneous tissue Diagnosis 03/09/2020 12:39:00 PM EDT [facility] [id number] Cutaneous abscess of right axilla Cutaneous absc ess of right axilla Diagnosis 03/04/2020 09:27:00 PM EDT [facility] [id number] Furuncle of right axilla Furuncle of right axilla Diag nosis 03/04/2020 09:27:00 PM EDT [facility] Results ID Date Data Source [id number] 10/06/2020 12:00:00 AM EST [facility] Name Value Range Interpretation Code Description Data Catalina rce(s) Supporting Document(s) SARS-CoV-2 (COVID-19) RNA [Presence] in Respiratory specimen by MATIAS with probe detection Not Detected [facility] This lab was ordered by [facility] and reported by [employer]. ID Date Data Source [id number] 10/02/2020 12:00:00 AM EST [facility] Name Value Range Interpretation Code Description Data Catalina rce(s) Supporting Document(s) Carestart Rapid COVID Antigen Test Positive [facility] This lab was reported by Agustín [facility] aleksey. ID Date Data Source [id number] 08/30/2020 12:00:00 AM EST [facility] Name Value Range Interpretation Code Description Data Catalina rce(s) Supporting Document(s) 2019-nCoV RNA XXX MATIAS+probe-Imp [facility] This lab was ordered by [facility] and reported by [employer] ID Date Data Source [id number] 08/14/2020 12:00:00 AM EST [facility] Name Value Range Interpretation Code Description Data Catalina rce(s) Supporting Document(s) 2019-nCoV RNA XXX MATIAS+probe-Imp [facility] This lab was ordered by [facility] and reported by [employer] ID Date Data Source [id number] 03/10/2020 08:52:00 AM EDT [facility] [address] [place] [address] PHONE: [phone] FAX: [phone] Name .................. : MARLON SHIN Acct Number.................. : [id number] ROOM. ................. : TR-04 MR Number ................... : [id number] Stay type ............. : E/R Discharge Date......... ... : 03/09/20 Admit Date ......... : 03/09/20 Admit Phys .................... : ANGEL PELAYO Date of ....... : 1990 Family Phys ................... : JOSETTE ALONZO Phone .................. : [phone] Age ................................ : 29 Film# .................. .:[id number] Sex ................................. : M Unsigned transcriptions are preliminary reports and do not represent a medical or legal document US EXT-NON VASCULAR RT COMPL [id number] COMPLETE:03/09/20 14:15 B [id number] Reason(s): Arm ULTRASOUND OF THE RIGHT AXILLA: [...] rce(s) Supporting Document(s) ID Date Data Source [id number] 03/09/2020 12:39:00 PM EDT [facility] 1 OrderSheet [facility] Emergency Department [address] [place] [address] Phone #: ext- [phone] 03/09/2020 12:37 Patient: ALEIDA MASON Sex: M [...] rce(s) Supporting Document(s) ID Date Data Source [id number] 03/09/2020 12:39:00 PM EDT [facility] 1 Medication Reconciliation Report [facility] Emergency Department [address] [place] [address] Phone #: ext- [phone] 03/09/2020 12:37 Patient: ALEIDA MASON Sex: M [...] Dispense 20 tablet. Refills:0. Substitution permitted.Pharmacy - [facility] - 3P #07 - [address] [facility] ; [place], [place] [phone]. . -- ANDREA Ware Name Value Range Interpretation Code Description Data Catalina rce(s) Supporting Document(s) ID Date Data Source [id number] 03/09/2020 12:39:00 PM EDT [facility] 1 Medication Administration Record [facility] Emergency Department [address] [place] [address] Phone #: ext [phone] 03/09/2020 12:37 Patient: ALEIDA MASON Sex: M : 1990 Age: 29yWeight: 125.6 kgHeight/Length: 69 inBMI: 40.9ALLERGIES: PenicillinsDate/Time Medication Administered Medication Ordered Name Value Range Interpretation Code Description Data Catalina rce(s) Supporting Document(s) ID Date Data Source [id number] 03/09/2020 12:39:00 PM EDT [facility] 1 General Instructions [facility] Emergency Department [address] [place] [address] Phone #: ext [phone] 03/09/2020 12:37 Patient: ALEIDA MASON Sex: M [...] Dispense 20 tablet. Refills:0. Substitution permitted.Pharmacy - [facility] - 3P #12 - [address] [place] [address] ; [place], [place] [phone]. .Follow-up:Follow up with your doctor in three [...] similar types of cysts: 2 General Instructions [facility] Emergency Department [address] [place] [address] Phone #: ext- [phone] 03/09/2020 12:37 Patient: ALEIDA MASON Sex: M [...] are all used up. You may use qfsx-nqv-nddnlrn pain medicine to control pain, unless another medicine was 3 General Instructions [facility] Emergency Department [address] [place] [address] Phone #: ext- [phone] 03/09/2020 12:37 Patient: [...] higher, or as directed by your provider [phone] [employer]. [address] [place] [address]. All rights reserved. This information is not intended as asubstitute for professional medical care. Always follow your healthcare professional's instructions. You have been given the following additional information: Epidermoid Cyst (Sebaceous Cyst), Infected (Incision and Drainage)(Electronically signed by ANDREA Ware 03/09/2020 21:51) Name Value Range Interpretation Code Description Data Catalina rce(s) Supporting Document(s) ID Date Data Source [id number] 03/09/2020 12:39:00 PM EDT [facility] 1 Clinical Report - Nurses [facility] Emergency Department [address] [place] [address] Phone #: [phone] zkb- [phone] 03/09/2020 12:37 Patient: ALEIDA MASON Sex: M [...] tried to pop it yesterday but wasunsuccessful.).Treatment JUNIOR ART DIRECTOR:(Ibuprofen last dose just prior to arrival 600mg;).SEPSIS [...] Calderon R.N. 2 Clinical Report - Nurses [facility] Emergency Department [address] [place] [address] Phone #: ext- [phone] 03/09/2020 12:37 Patient: ALEIDA MASON Sex: M : 1990 Age: 29y Medication/allergy information source: the patient. --12:44 03/09/20 Sonal Calderon R.N. ADDITIONAL SURGERIES: Pilonidal cyst. --12:41 03/09/20 oSnal Calderon R.N. History PAST MEDICAL HX: Immunizations: up-to-date. SOCIAL HX: Current every day heavy tobacco smoker (cigarette)- 1 pack per day. No alcohol use or drug use. He was offered HIV testing but declined. Patient education was provided. He was offered hepatitis C testing but declined. Patient education was provided. ( COVID screen negative; Pt came back from [place] on 02/26/20). He has not traveled outside [...] Menon R.N. 3 Clinical Report - Nurses [facility] Emergency Department [address] [place] [address] Phone #: ext- [phone] 03/09/2020 12:37 Patient: ALEIDA MASON Sex: M [...] to radiology by wheelchair. --14:09 03/09/20 Karon Menno R.N. 14:13 03/09/20. Patient returned from radiology [...] F. Pain level now 5/10. --15:10 03/09/20 [place] head custodianJaylen Best, ER Tech1 No learning barriers present. Discharge instructions provided and reviewed with the patient. Reviewed medication(s). Prescription(s) sent electronically to pharmacy. Reviewed referral to a primary care physician. Activity restrictions (rest) reviewed. Patient verbalized understanding. Written instructions provided in Italian. --15:23 03/09/20 Karon Menon R.N. Departure time: 15:19 03/09/2020. --15:24 03/09/20 Karon Menon R.N.Locked/Released at 03/09/2020 15:24 by Karon Menon R.N. Name Value Range Interpretation Code Description Data Catalina rce(s) Supporting Document(s) ID Date Data Source [id number] 03/09/2020 12:39:00 PM EDT [facility] 1 Clinical Report - Physicians/Mid Levels [facility] Emergency Department [address] [place] [address] Phone #: ext- [phone] 03/09/2020 12:37 Patient: [...] NOTES 2 Clinical Report - Physicians/Mid Levels [facility] Emergency Department [address] [place] [address] Phone #: ext- [phone] 03/09/2020 12:37 Patient: ALEIDA MASON Sex: M [...] abscess. The exam was performed by a vending technician. The study wasinterpreted by the radiologist [...] cyst 3 Clinical Report - Physicians/Mid Levels [facility] Emergency Department [address] [place] [address] Phone #: ext- [phone] 03/09/2020 12:37 Patient: [...] tablet. Refills: 0. Substitution permitted. Pharmacy - [facility] - 3P #19 - [address] [place] [address] ; [place], [place] [phone]. . Follow- up: Follow up with your doctor in three days for wound check. Reason for referral: evaluation and treatment. Summary of care provided to patient. Understanding of the discharge instructions verbalized by patient.(Electronically signed by ANDREA Ware 03/09/2020 21:51) Name Value Range Interpretation Code Description Data Catalina rce(s) Supporting Document(s) ID Date Data Source [id number] 03/12/2020 10:22:00 PM EDT [facility] Name Value Range Interpretation Code Description Data Catalina rce(s) Supporting Document(s) CULTURE WOUND [facility] _CULTURE WOUND_$$[id number]$$[id number]$$[id number]$$[id number] DATE/TIME: 03/12/2020 17:06Culture: CULTURE WOUND Status: FinalIsolate 1 Staphylococcus aureus Flag: A . . . . . . .3Heavy growthMethicillin resistant (MRSA)Based on resistance to oxacillin this isolate would be resistant toall currently available beta-lactam antimicrobial agents, with theexception of the newer cephalosporins with anti-MRSA activity, such asCeftaroline Previous result entered on 03/12/2020 05:50 ET Staphylococcus aureusAerobic Bacterial Culture: N8Llxewjeuqnnkvf aureus Flag: APatient: MARLON SHIN Order: [id number] Page 2Culture: CULTURE WOUND Status: Final ISOLATE 1 Staphylococcus aureus Isolate 1Antibiotic MALENA IntUnits ug/mL Ciprofloxacin R R . . . . . .185-9Clindamycin R R . . . . . .193- 3Erythromycin R R . . . . . .233-7Gentamicin S S . . . . . .267-5Levofloxacin I I . . . . . .74502-5Ekkorywvs S S . . . . . .22042-7Ttfdzxvct R R . . . . . .383-0Penicillin R R . . . . . .6932-8Rifampin S S . . . . . .428- 3Tetracycline S S . . . . . .496-0Trimethoprim/Sulfa S S . . . . . .516-5Vancomycin S S . . . . . .524-9P1 Test performed by: [facility] #: [id number] [address] [place] [id number] [facility] [id number] Director : Tim Goodrich MD NPI #:Donor Floor Technician : 03/12/20.0716.XMT.SENT REF 03/12/20.2222.XMT.SENT REF ID Date Data Source [id number] 03/04/2020 09:27:00 PM EDT [facility] 1 OrderSheet [facility] Emergency Department [address] [place] [address] Phone #: ext- [phone] 03/04/2020 21:16 Patient: ALEIDA MASON Sex: M : 1990 Age: 29yWEIGHT:125.6 kg (S) HEIGHT:69 inches (S) BMI:40.9ALLERGIES: PenicillinsCHIEF COMPLAINT: boil, tender areaDIAGNOSIS: AbscessLAB ORDERSOrder Description Priority Entered Acknowledged InitialedDIAGNOSTIC STUDY ORDERSOrder Description Priority Entered Acknowledged InitialedMEDICATION/IV/DRIP/FLUID ORDERSOrder Description Priority Entered Acknowledged InitialedClindamycin PO 21:50 03/04/2020 21:56 Mfjxzb624 mg Florencio Amos RN P.A.-C;Toradol IM 30 [...] rce(s) Supporting Document(s) ID Date Data Source [id number] 03/04/2020 09:27:00 PM EDT [facility] 1 Medication Reconciliation Report [facility] Emergency Department [address] [place] [address] Phone #: ext- [phone] 03/04/2020 21:16 Patient: [...] Dispense 30 capsule.Refills: 0. Substitution permitted.Pharmacy - [facility] - 3P #85 - [address] [place] [phone]. . -- Florencio Hernandez P.A.-C Name Value Range Interpretation Code Description Data Catalina rce(s) Supporting Document(s) ID Date Data Source [id number] 03/04/2020 09:27:00 PM EDT [facility] 1 Medication Administration Record [facility] Emergency Department [address] [place] [address] Phone #: ext- [phone] 03/04/2020 21:16 Patient: ALEIDA MASON Sex: M [...] rce(s) Supporting Document(s) ID Date Data Source [id number] 03/04/2020 09:27:00 PM EDT [facility] 1 General Instructions [facility] Emergency Department [address] [place] [address] Phone #: ext- [phone] 03/04/2020 21:16 Patient: [...] Dispense 30 capsule.Refills: 0. Substitution permitted.Pharmacy - [facility] - 3P #20 - [address] [facility] ; [place], [place] [phone]. .Follow-up:Return to the emergency department as needed. Follow up with your healthcare provider in about twodays if not better. Call for an appointment.Understanding of the discharge instructions verbalized by patient. ADDITIONAL INFORMATIONAbscess (Antibiotic Treatment Only)An abscess (sometimes called a "boil") happens when bacteria get trapped under the skin and start to 2 General Instructions [facility] Emergency Department [address] [place] [address] Phone #: ext- [phone] 03/04/2020 21:16 Patient: ALEIDA MASON Sex: M [...] you to stop. You may use an lyve-qrh-lfwmilf pain medicine to control pain, unless another [...] the abscess Boil returns after getting better [id number] [employer]. [address] [place] [address]. All rights reserved. This information is not intended as a 3 General Instructions [facility] Emergency Department [address] [place] [address] Phone #: ext- [phone] 03/04/2020 21:16 Patient: ALEIDA MASON Sex: M [...] wound. Remove any artificial nails and nail mohawk.Treating household members and your environmentIf you have [...] 4% soap as well. 4 General Instructions [facility] Emergency Department [address] [place] [address] Phone #: ext- [phone] 03/04/2020 21:16 Patient: [...] available, you can use an alcohol-based hand automatic nailing machine feeder. Rub the saniti zer over the entire [...] gym, wipe down equipment with an alcohol-based automatic nailing machine feeder before and after each use. Wipe the [...] or as directed by the healthcare provider [phone] [employer]. [address] [place] [address]. All rights reserved. This information is not intended as asubstitute for professional medical care. Always follow your healthcare professional's instructions. 5 General Instructions [facility] Emergency Department [address] [place] [address] Phone #: ext- [phone] 03/04/2020 21:16 Patient: SECH, ALEIDA Sex: M : 1990 Age: 29yYou have been given the following additional information:Abscess, Antibiotic Treatment OnlyStaph Skin Infection, Possible MRSA(Electronically signed by Florencio Hernandez P.A.-C 03/04/2020 22:16) Name Value Range Interpretation Code Description Data Catalina rce(s) Supporting Document(s) ID Date Data Source [id number] 03/04/2020 09:27:00 PM EDT [facility] 1 Clinical Report - Nurses [facility] Emergency Department [address] [place] [address] Phone #: ext- [phone] 03/04/2020 21:16 Patient: ALEIDA MASON Sex: M : 1990 Age: 29yTRIAGEArrived by private vehicle. Historian: patient.Triage time: 21:18 03/04/2020. Acuity: LEVEL 4.Chief Complaint: BOIL.Reported as located in the right axilla. This started last night. It is described as moderately painful.Treatment JUNIOR ART DIRECTOR:None.SEPSIS SCREEN: Sepsis Screen negative. No suspected or confirmed signs of infection present. --21: Chris Amos RN21:18 03/04/20. BP: 149/61 (regular adult cuff) taken on the right arm, via an automated monitor, whilesitting. MAP: 90. HR: 77 (regular, normal rate and strong). RR: 16 (regular, unlabored and normal). Z9qcbbryhwqx: 94% on room air. Temp: 98.3 F. [...] The patient 2 Clinical Report - Nurses [facility] Emergency Department [address] [place] [address] Phone #: [phone] mbl- [phone] 03/04/2020 21:16 Patient: ALEIDA MASON Sex: M [...] Amos RN 3 Clinical Report - Nurses [facility] Emergency Department [address] [place] [address] Phone #: ext- [phone] 03/04/2020 21:16 [id number] Sex: M : 1990 Age: 29y 21:58 [...] Patient verbalized understanding. Written instructions provided in Italian. The patient was discharged home and accompanied by spares scheduler. He left via private vehicle. Train Starter driving. --22:01 03/04/20 Chris Amos RN 22:00 [...] rce(s) Supporting Document(s) ID Date Data Source [id number] 03/04/2020 09:27:00 PM EDT [facility] 1 Clinical Report - Physicians/Mid Levels [facility] Emergency Department [address] [place] [address] Phone #: ext- [phone] 03/04/2020 21:16 Patient: [...] Penicillins.(hives). 2 Clinical Report - Physicians/Mid Levels [facility] Emergency Department [address] [place] [address] Phone #: ext- [phone] 03/04/2020 21:16 Patient: ALEIDA MASON [facility]#: [id number] Sex: M : 1990 Age: 29ySOCIAL HISTORYHeavy [...] weight. 3 Clinical Report - Physicians/Mid Levels [facility] Emergency Department [address] [place] [address] Phone #: how- [phone] 03/04/2020 21:16 Patient: ALEIDA MASON Sex: M [...] capsule. Refills: 0. Substitution permitted. Pharmacy - [facility] - [address]P [address]59 - [address] [place], [place] [phone]. . Follow-up: Return to the emergency department as needed. Follow up with your healthcare provider in about two days if not better. Call for an appointment. Understanding of the discharge instructions verbalized by patient.(Electronically signed by Florencio Hernandez P.A.-C 03/04/2020 22:16) 4Clinical Report - Physicians/Mid Levels [facility] Emergency Department [address] [place] [address] Phone #: ext- [phone] 03/04/2020 21:16 Patient: ALEIDA MASON Sex: M : 1990 Age: 29y Name Value Range Interpretation Code Description Data Catalina rce(s) Supporting Document(s) Procedure
[2020-10-30] MEDS ORDERED: ISOVUE-370 76% 100ML VIAL As Ordered ONE (15:39)
[2020-10-30] MEDS ORDERED: MORPHINE 4 MG/ML 1ML VIAL/SYRINGE (J2270) IV ONE (15:45)
[2020-10-30 16:02] LABS: BASO # 0.1 10^3/uL (0.0-0.2); BASO % 0.3 % (0.0-1.0); EOS # 0.1 10^3/uL (0.0-0.5); EOS % 0.3 % (0.0-3.0); HEMATOCRIT 43.9 % (42.0-52.0); HEMOGLOBIN 15.5 g/dl (13.5-17.5); LYMPH # 1.3 10^3/uL (1.5-5.0); LYMPH % 7.4 % (24.0-44.0); MEAN CORPUSCULAR HGB CONC 35.3 g/dl (32.0-36.5); MEAN CORPUSCULAR VOLUME 85.1 fl (80.0-96.0); MONO # 1.2 10^3/uL (0.0-0.8); MONO % 6.7 % (0.0-5.0); NEUTROPHILS # 15.2 10^3/uL (1.5-8.5); NEUTROPHILS % 84.4 % (36.0-66.0); PLATELET COUNT, AUTOMATED 226 10^3/uL (150-450); RED BLOOD COUNT 5.16 10^6/uL (4.30-6.10)
--- NOTE | 2020-10-30 16:32 | REP ---
INDICATION: extensive perirectal abscess. COMPARISON: Comparison CT study abdomen pelvis January 17, 2014.. TECHNIQUE: Helical scanning is acquired following the intravenous injection of 100 mL of Isovue 370. 3 mm axial images are generated. Coronal and sagittal MPR images are generated and reviewed. FINDINGS: Preliminary digital hr advisor radiograph demonstrates abnormal air densities in the perineum overlying the scrotum. The visualized bowel gas pattern is normal. The bottom edge of the liver is included in the scan field of view and there is marked diffuse fatty infiltration in the liver. A normal appendix is seen in the right lower quadrant. Small and large bowel loops are unremarkable in the pelvis. And visualized abdomen. Lower poles of the kidneys are included in the field of view and the symmetric enhancement is seen. No pelvic adenopathy is observed. Urinary bladder, prostate and seminal vesicles are unremarkable. Scanning conducted into the perineum and inferior gluteal region demonstrates mottled air collection consistent with a perineal abscess on the right side. This measures 7.5 cm in anterior to posterior dimension by 5 cm craniocaudal by 2.3 cm right to left. The cavity appears to contain only air bubbles with some surrounding edema and dermal thickening consistent with cellulitis. No fluid collection is appreciated. Higher up, the ischiorectal fat and levator ani muscles appear intact. No bony destructive lesion is seen. IMPRESSION: Findings consistent with a right perineal perianal abscess containing bubbles of air and no discernible fluid. There is surrounding subcutaneous fat edema and dermal thickening consistent with cellulitis. Spontaneously draining abscess versus gas-forming organism. The collection of gas bubbles measures 7.5 x 2.3 x 5.0 cm. <Electronically signed by Henri Mcgee > 10/30/20 2605
[2020-10-30] MEDS ORDERED: NS 1,000 ML IV ONE (16:45)
[2020-10-30] MEDS ORDERED: ACETAMINOPHEN *IV* 1,000 MG in IV 1 EA IV ONE (17:00)
[2020-10-30] MEDS: VANCOMYCIN HCL 750 MG, VIAL MATE ADAPTER 1 EACH in D5W 250 ML IV SCH ×2 (17:04→17:43)
[2020-10-30] MEDS ORDERED: SUBO8MIS SL (17:06)
[2020-10-30] MEDS ORDERED: MEROPENEM INJ 1 GM in NS 100 ML IV SCH (17:15)
[2020-10-30] MEDS: NS 2,000 ML IV ONE ×2 (17:23→17:43)
[2020-10-30] MEDS: KETOROLAC 30 MG/ML 1ML VIAL IV SCH (17:25)
[2020-10-30 17:33] LABS: ERYTHROCYTE SEDIMENTATION RATE 33 mm/hr (0-15)
[2020-10-30] MEDS ORDERED: LIDOCAINE W/EPINEPHRINE 1% 20ML VIAL SC ONE (17:45)
--- OUTSIDE RECORDS SUMMARY | 2020-10-30 17:47 | CCD ---
Author Author [facility] Address Unknown Phone Unavailable Care Team Providers Care Cane Furniture Maker Name Role Phone TURRIN, BRI Unavailable Unavailable [...] is protected by Article 27-F of the [facility] Public Health law. If you continue you may have access to information: Regarding HIV / AIDS; Provided by facilities licensed or operated by the [facility] Office of Mental Health; or Provided by the [facility] Office for People With Developmental Disabilities. If such information is present, then the following [facility] mandated warning applies: This information has [...] Source(s ) CLASS PENICILLINS (CLASS) PENICILLINS (CLASS) [facility] Family History Family Member Name Family Member Gender Family Member Status Date o f Status Description Data Source(s) Unknown Unknown Problem [facility] ([facility]) pgf Encounters Encounter Providers Location Date Indications Data Source(s ) Emergency Attender: BRI ORTIZConsultant: MARIBEL OWEN MD 03/09/2020 12:39:00 PM EDT - 03/09/2020 03:20:00 PM T [facility] Patient discharged. Emergency Attender: BRI Maddoxltant: MARIBEL OWEN MD 03/04/2020 09:27:00 PM EDT - 03/04/2020 10:02:00 PM T [facility] Patient discharged. Medications Medication Brand [...] relationship to peacock Policy Peacock Plan Information [facility] [id number] SP [id number] [facility] [id number] SP [id number] [facility] [id number] SP [id number] [facility] [id number] SP [id number] SELF PAY ONLY [id number] SP [id number] [facility] [id number] 18 [id number] [facility] [id number] 18 [id number] [facility] [id number] SP [id number] [facility]-Medicaid [id number] ANS-Medicaid [id number] [facility] [id number] SP [id number] [facility]-Medicaid [id number] SELF PAY ONLY UNAVAILABLE SP UNAV AILABLE BCBS/[employer] Commercial [id number] Self YN [id number] BCBS OF [place] [id number] FA2 [id number] [facility] [id number] [facility] [id number] Problems, Conditions, and Diagnoses Code Display Name Description Problem Type Effective Dates Data Source(s) T67420 Nicotine dependence, cigarettes, uncompl icated Nicotine dependence, cigarettes, uncomplicated Diagnosis 03/09/2020 12:39:00 PM EDT [facility] L723 Sebaceous cyst Sebaceous cyst Diagnosis 03/09/2020 12:39: 00 PM EDT [facility] L988 Other specified disorders of the skin an d subcutaneous tissue Other specified disorders of the skin and subcutaneous tissue Diagnosis 03/09/2020 12:39:00 PM EDT [facility] Q95338 Cutaneous abscess of right axilla Cutaneous absc ess of right axilla Diagnosis 03/04/2020 09:27:00 PM EDT [facility] N75750 Furuncle of right axilla Furuncle of right axilla Diag nosis 03/04/2020 09:27:00 PM EDT [facility] Results ID Date Data Source [id number] 10/06/2020 12:00:00 AM EST [facility] Name Value Range Interpretation Code Description Data Catalina rce(s) Supporting Document(s) SARS-CoV-2 (COVID-19) RNA [Presence] in Respiratory specimen by MATIAS with probe detection Not Detected [facility] This lab was ordered by [facility] and reported by [employer] ID Date Data Source [id number] 10/02/2020 12:00:00 AM EST [facility] Name Value Range Interpretation Code Description Data Catalina rce(s) Supporting Document(s) Carestart Rapid COVID Antigen Test Positive [facility] This lab was reported by Agust[facility]. ID Date Data Source [id number] 08/30/2020 12:00:00 AM EST [facility] Name Value Range Interpretation Code Description Data Catalina rce(s) Supporting Document(s) 2018-nCoV RNA XXX MATIAS+probe-Imp [facility] This lab was ordered by [facility] and reported by [employer]. ID Date Data Source [id number] 08/14/2020 12:00:00 AM EST [place] Name Value Range Interpretation Code Description Data [facility] Supporting Document(s) 2018-nCoV RNA XXX MATIAS+probe-Imp [facility] This lab was ordered by [facility] and reported by [employer] ID Date Data Source [id number] 03/10/2020 08:52:00 AM EDT [facility] [address] [place] [address] PHONE: [phone] FAX: [phone] Name .................. : MARLON SHIN Acct Number.................. : [id number] ROOM. ................. : TR-04 MR Number ................... : [id number] Stay type ............. : E/R Discharge Date......... ... : 03/09/20 Admit Date ......... : 03/09/20 Admit Phys .................... : ANGEL PELAYO Date of ....... : 1990 Family Phys ................... : JOSETTE ALONZO Phone .................. : [phone] Age ................................ : 29 Film# .................. .:[id number] Sex ................................. : M Unsigned transcriptions are preliminary reports and do not represent a medical or legal document EXT-NON VASCULAR RT COMPL [id number] COMPLETE:03/09/20 14:15 KNB [id number] Reason(s): Arm ULTRASOUND OF THE RIGHT AXILLA: [...] via fax Copy for: EMERGENCY DEPT via mode Copy for: 710 MED REC DISCHARGED Page 1 of 1 Name Value Range Interpretation Code Description Data Catalina rce(s) Supporting Document(s) ID Date Data Source [id number] 03/09/2020 12:39:00 PM EDT [facility] 1 OrderSheet [facility] Emergency Department [address] [place] [address] Phone #: ext- [phone] 03/09/2020 12:37 Patient: ALEIDA MASON Sex: M : 1990 Age: 29yWEIGHT:125.6 kg (S) HEIGHT:69 inches (S) BMI:40.9ALLERGIES: PenicillinsCHIEF COMPLAINT: lesion, boil, tender areaDIAGNOSIS: Epidermoid cyst of skinLAB ORDERSOrder Description Priority Entered Acknowledged InitialedCulture, Wound STAT 14:58 03/09/2020 15:01 Sinan(Arm) Luis Angel MENDEZ;DIAGNOSTIC STUDY ORDERSOrder Description Priority Entered Acknowledged InitialedUS [...] rce(s) Supporting Document(s) ID Date Data Source [id number] 03/09/2020 12:39:00 PM EDT [facility] 1 Medication Reconciliation Report [facility] Emergency Department [address] [place] [address] Phone #: ext- [phone] 03/09/2020 12:37 Patient: ALEIDA MASON Sex: M [...] Dispense 20 tablet. Refills:0. Substitution permitted.Pharmacy - [facility] - [address] [place], [place] [phone]. . -- ANDREA Ware Name Value Range Interpretation Code Description Data Catalina [facility](s) Supporting Document(s) ID Date Data Source [id number] 03/09/2020 12:39:00 PM EDT [place] [address] Medication Administration Record [facility] Emergency Department [address] [place] [address] Phone #: ext- [phone] 03/09/2020 12:37 Patient: ALEIDA MASON Sex: M : 1990 Age: 29yWeight: 125.6 kgHeight/Length: 69 inBMI: 40.9ALLERGIES: PenicillinsDate/Time Medication Administered Medication Ordered Name Value Range Interpretation Code Description Data Catalina [facility](s) Supporting Document(s) ID Date Data Source [id number] 03/09/2020 12:39:00 PM EDT [facility] 1 General Instructions [facility] Emergency Department [address] [place] [address] Phone #: ext- [phone] 03/09/2020 12:37 Patient: ALEIDA MASON Sex: Monica : 1990 Age: 29ySebaceous cystINSTRUCTIONSWarnings: Further evaluation [...] Dispense 20 tablet. Refills:0. Substitution permitted.Pharmacy - [facility] - [address] [place] [phone]. .Follow-up:Follow up with your doctor in three [...] similar types of cysts: 2 General Instructions [facility] Emergency Department [address] [place] [address] Phone #: ext- [phone] 03/09/2020 12:37 Patient: [...] are all used up. You may use poph-lqt-vdoxpoh pain medicine to control pain, unless another medicine was 3 General Instructions [facility] Emergency Department [address] [place] [address] Phone #: ext- [phone] 03/09/2020 12:37 Patient: [...] higher, or as directed by your provider [phone] [employer]. [address] [place] [address]. All rights reserved. This information is not intended as asubstitute for professional medical care. Always follow your healthcare professional's instructions. You have been given the following additional information: Epidermoid Cyst (Sebaceous Cyst), Infected (Incision and Drainage)(Electronically signed by ANDREA Ware 03/09/2020 21:51) Name Value Range Interpretation Code Description Data Catalina rce(s) Supporting Document(s) ID Date Data Source [id number] 03/09/2020 12:39:00 PM EDT [facility] 1 Clinical Report - Nurses [facility] Emergency Department [address] [place] [address] Phone #: xuv- [phone] 03/09/2020 12:37 Patient: ALEIDA MASON Sex: M [...] tried to pop it yesterday but wasunsuccessful.).Treatment SPA COORDINATOR:(Ibuprofen last dose just prior to arrival 600mg;).SEPSIS [...] day. Wellbutrin Oral 300 mg, daily. --12:40 6/15/20 Sonal Calderon R.N. Zoloft Oral 75 mg, daily. --12:40 03/09/20 Sonal Calderon R.N. traZODone HCl Oral 100 mg, daily at bedtime. --12:40 03/09/20 Sonal Calderon R.N. Clindamycin HCl Oral 300 mg, 3x a day, started 03/03/20. --12:41 03/09/20 Sonal Calderon R.N.AllergiesPenicillins.(hives) --12:40 03/09/20 Sonal Calderon R.N.PROBLEMS:Knee Injury.Abscess.Rehab: (Narcotics).Lower Extremity Pain. --12:41 03/09/20 Sonal Calderon R.N. 2 Clinical Report - Nurses [facility] Emergency Department [address] [place] [address] Phone #: ext- [phone] 03/09/2020 12:37 Patient: [...] COVID screen negative; Pt came back from [place] on 02/26/20). He has not traveled outside [...] Menon R.N. 3 Clinical Report - Nurses [facility] Emergency Department [address] [place] [address] Phone #: ext- [phone] 03/09/2020 12:37 Patient: ALEIDA MASON Sex: M [...] time of assist / procedure: (10 minutes). --15:03/09/20 Karon Menon R.N. Checked patient name and birthdate. Wound swabbed for culture; collected by nurse. --15:01 03/09/20 Karon Menon R.N.DISPOSITION / DISCHARGE 15:10 03/09/20. BP: 130/84. HR: 78. RR: 19. O2 saturation: 99%. Temp: 98.6 F. Pain level now 5/10. --15:10 03/09/20 [place] edge workerJaylen Best, BRISEIDA Tech1 No learning barriers present. Discharge instructions provided and reviewed with the patient. Reviewed medication(s). Prescription(s) sent electronically to pharmacy. Reviewed referral to a primary care physician. Activity restrictions (rest) reviewed. Patient verbalized understanding. Written instructions provided in Cameroonian. --15:23 03/09/20 Karon Menon R.N. Departure time: 15:19 03/09/2020. --15:24 03/09/20 Karon Menon R.N.Locked/Released at 03/09/2020 15:24 by Karon Menon R.N. Name Value Range Interpretation Code Description Data Catalina rce(s) Supporting Document(s) ID Date Data Source [id number] 03/09/2020 12:39:00 PM EDT [facility] 1 Clinical Report - Physicians/Mid Levels [facility] Emergency Department [address] [place] [address] Phone #: ext- [phone] 03/09/2020 12:37 Patient: [...] NOTES 2 Clinical Report - Physicians/Mid Levels [facility] Emergency Department [address] [place] [address] Phone #: ext- [phone] 03/09/2020 12:37 Patient: ALEIDA MASON Sex: M : 1990 Age: 29y The nursing notes have been reviewed.PHYSICAL EXAMVital Signs: 03/09/2020 12:43 BP: 126/67. MAP: 86. HR: 96. RR: 20. O2 saturation: 95% on room air.Temp: 98.5 F. Pain level now: 07/04. Have been reviewed. Oxygen saturation normal.Appearance: Alert. [...] abscess. The exam was performed by a clinical dietetic technician. The study wasinterpreted by the radiologist [...] Discharged home in good and improved condition (15:Mar 09 2020).CLINICAL IMPRESSION Sebaceous cyst 3 Clinical Report - Physicians/Mid Levels [facility] Emergency Department [address] [place] [address] Phone #: ext- [phone] 03/09/2020 12:37 Patient: ALEIDA MASON Sex: M [...] tablet. Refills: 0. Substitution permitted. Pharmacy - [facility] - [address] [place] [address] ; [place], [place] [phone]. . Follow- up: Follow up with your doctor in three days for wound check. Reason for referral: evaluation and treatment. Summary of care provided to patient. Understanding of the discharge instructions verbalized by patient.(Electronically signed by ANDREA Ware 03/09/2020 21:51) Name Value Range Interpretation Code Description Data [facility] rce(s) Supporting Document(s) ID Date Data Source [id number] 03/12/2020 10:22:00 PM EDT [facility] Name Value Range Interpretation Code Description Data [facility] rce(s) Supporting Document(s) CULTURE WOUND [facility] spital _CULTURE WOUND_$$[id number]$$[id number]$$[id number]$$[id number]$$[id number]$$[id number] DATE/TIME: 03/12/2020 17:06Culture: CULTURE WOUND Status: FinalIsolate 1 Staphylococcus aureus Flag: A . . . . . . .3Heavy growthMethicillin resistant (MRSA)Based on resistance to oxacillin this isolate would be resistant toall currently available beta-lactam antimicrobial agents, with theexception of the newer cephalosporins with anti-MRSA activity, such asCeftaroline Previous result entered on 03/12/2020 05:50 ET Staphylococcus aureusAerobic Bacterial Culture: D2Yuttclhefyisim aureus Flag: APatient: MARLON SHIN Order: [id number] Page 2Culture: CULTURE WOUND Status: Final ISOLATE 1 Staphylococcus aureus Isolate 1Antibiotic MALENA IntUnits ug/mL Ciprofloxacin R R . . . . . .185-9Clindamycin R R . . . . . .193- 3Erythromycin R R . . . . . .233-7Gentamicin S S . . . . . .267-5Levofloxacin I I . . . . . .02067-1Lldnnfkod S S . . . . . .98488-4Fdiamippt R R . . . . . .383-0Penicillin R R . . . . . .6932-8Rifampin S S . . . . . .428- 3Tetracycline S S . . . . . .496-0Trimethoprim/Sulfa S S . . . . . .516-5Vancomycin S S . . . . . .524-9P1 Test performed by: Mary LOCKWOOD #: [id number] [address] [place] [address] [id number] [facility] [id number] Director : Tim Goodrich MD NPI #:Assistant Community Manager : 03/12/20.0716.XMT.SENT REF 03/12/20.2222.XMT.SENT REF ID Date Data Source [id number] 03/04/2020 09:27:00 PM EDT [facility] 1 OrderSheet [facility] Emergency Department [address] [place] [address] Phone #: ext- [phone] 03/04/2020 21:16 Patient: ALEIDA MASON Sex: M : 1990 Age: 29yWEIGHT:125.6 kg (S) HEIGHT:69 inches (S) BMI:40.9ALLERGIES: PenicillinsCHIEF COMPLAINT: boil, tender areaDIAGNOSIS: AbscessLAB ORDERSOrder Description Priority Entered Acknowledged InitialedDIAGNOSTIC STUDY ORDERSOrder Description Priority Entered Acknowledged InitialedMEDICATION/IV/DRIP/FLUID ORDERSOrder Description Priority Entered Acknowledged InitialedClindamycin PO 21:50 03/04/2020 21:56 Zuxwrn415 mg Florencio Amos RN P.A.-C;Toradol IM 30 mg 21:50 03/04/2020 21:57 Chris Amos RN P.A.-C;THM Clindamycin 21:52 03/04/2020 21:58 StevenPO 300 mg Florencio Amos RN P.A.-C;GENERAL ORDERSOrder Description Priority Entered Acknowledged Initialed[Electronically signed by Chris Amos RN (22:02 03/04/2020)][Electronically signed by Florencio Hernandez P.A.-C (22:16 03/04/2020)][Electronically locked by Chris Amos RN (22:02 03/04/2020)] Name Value Range Interpretation Code Description Data Catalina rce(s) Supporting Document(s) ID Date Data Source [id number] 03/04/2020 09:27:00 PM EDT [facility] 1 Medication Reconciliation Report [facility] Emergency Department [address] [place] [address] Phone #: ext- [phone] 03/04/2020 21:16 [id number] Sex: M : 1990 Age: 29yWeight: 125.6 [...] Dispense 30 capsule.Refills: 0. Substitution permitted.Pharmacy - [facility] - [address] [place] [phone]. . -- Florencio Hernandez P.A.-C Name Value Range Interpretation Code Description Data Catalina rce(s) Supporting Document(s) ID Date Data Source [id number] 03/04/2020 09:27:00 PM EDT [facility] 1 Medication Administration Record [facility] Emergency Department [address] [place] [address] Phone #: ext- [phone] 03/04/2020 21:16 Patient: ALEIDA MASON Sex: M [...] rce(s) Supporting Document(s) ID Date Data Source [id number] 03/04/2020 09:27:00 PM EDT [facility] 1 General Instructions [facility] Emergency Department [address] [place] [address] Phone #: ext- [phone] 03/04/2020 21:16 Patient: [...] Dispense 30 capsule.Refills: 0. Substitution permitted.Pharmacy - [facility] - [address] [facility] ; [place], [place] [phone]. .Follow-up:Return to the emergency department as needed. Follow up with your healthcare provider in about twodays if not better. Call for an appointment.Understanding of the discharge instructions verbalized by patient. ADDITIONAL INFORMATIONAbscess (Antibiotic Treatment Only)An abscess (sometimes called a "boil") happens when bacteria get trapped under the skin and start to 2 General Instructions [facility] Emergency Department [address] [place] [address] Phone #: ext- [phone] 03/04/2020 21:16 Patient: ALEIDA MASON Sex: M [...] you to stop. You may use an rjeb-bck-tvhhaog pain medicine to control pain, unless another [...] the abscess Boil returns after getting better [phone] [employer]. [address] [place] [address], [place] [address]. All rights reserved. This information is not intended as a 3 General Instructions [facility] Emergency Department [address] [place] [address] Phone #: ext- [phone] 03/04/2020 21:16 Patient: [...] wound. Remove any artificial nails and nail portuguese.Treating household members and your environmentIf you have [...] 4% soap as well. 4 General Instructions [facility] Emergency Department [address] [place] [address] Phone #: ext- [phone] 03/04/2020 21:16 Patient: [...] available, you can use an alcohol-based hand clock repairer. Rub the saniti zer over the entire [...] gym, wipe down equipment with an alcohol-based clock repairer before and after each use. Wipe the [...] or as directed by the healthcare provider [phone] [employer]. [address] [place] [address], [place] [address]. All rights reserved. This information is not intended as asubstitute for professional medical care. Always follow your healthcare professional's instructions. 5 General Instructions [facility] Emergency Department [address] [place] [address] Phone #: ext- [phone] 03/04/2020 21:16 Patient: ALEIDA MASON Sex: M : 1990 Age: 29yYou have been given the following additional information:Abscess, Antibiotic Treatment OnlyStaph Skin Infection, Possible MRSA(Electronically signed by Florencio Hernandez P.A.-C 03/04/2020 22:16) Name Value Range Interpretation Code Description Data Catalina rce(s) Supporting Document(s) ID Date Data Source [id number] 03/04/2020 09:27:00 PM EDT [facility] 1 Clinical Report - Nurses [facility] Emergency Department [address] [place] [address] Phone #: ext- [phone] 03/04/2020 21:16 Patient: ALEIDA MASON Sex: M : 1990 Age: 29yTRIAGEArrived by private vehicle. Historian: patient.Triage time: 21:18 03/04/2020. Acuity: LEVEL 4.Chief Complaint: BOIL.Reported as located in the right axilla. This started last night. It is described as moderately painful.Treatment SPA COORDINATOR:None.SEPSIS SCREEN: Sepsis Screen negative. No suspected or confirmed signs of infection present. --21: Chris Amos RN21:18 03/04/20. BP: 149/61 (regular adult cuff) taken on the right arm, via an automated monitor, whilesitting. MAP: 90. HR: 77 (regular, normal rate and strong). RR: 16 (regular, unlabored and normal). Q3zblpukfipa: 94% on room air. Temp: 98.3 F. [...] Chris Amos RN.PROBLEMS:Knee Injury.Lower Extremity Pain.Rehab: (Narcotics). --21:33 03/04/20 Chris Amos RN.HistorySOCIAL HX: Current every day heavy tobacco smoker (cigarette)- 1 pack per day. No alcohol use or druguse. The patient was offered HIV testing but declined and hepatitis C testing but declined. The patient 2 Clinical Report - Nurses [facility] Emergency Department [address] [place] [address] Phone #: [phone] rbb- [phone] 03/04/2020 21:16 Patient: ALEIDA MASON Sex: Monica : 1990 Age: 29y has not traveled [...] risk assessment completed. No risk factors identified. --:03/04/20 Chris Amos RN PAST MEDICAL HX: Immunizations: up-to-date. --:33 03/04/20 Chris Amos RN. Assessment The patient states feels the same. --03/04/20 Chris Amos RN.PHYSICAL ASSESSMENTAmbulatory to room.GENERAL / [...] right axilla. Swellingpresent in the right axilla. --03/04/20 Chris Amos RN.NURSING PROGRESS NOTESReassurance given to [...] of allergic reaction and precautions. Verbalizes understanding. --:56 03/04/20 Chris Amos RN 21:57 03/04/2020 Toradol (Ketorolac Tromethamine) IM 30 mg given. Given in the left deltoid. Allergies verified and confirmed 5 rights. Information reviewed with patient including reason for taking this medication, signs of allergic reaction and precautions. Verbalizes understanding. --:57 03/04/20 Chris Amos RN 3 Clinical Report - Nurses [facility] Emergency Department [address] [place] [address] Phone #: ext- [phone] 03/04/2020 21:16 [id number] Sex: M : 1990 Age: 29y 21:58 [...] Patient verbalized understanding. Written instructions provided in Cameroonian. The patient was discharged home and accompanied by disintegrator operator. He left via private vehicle. Sample Book Maker driving. --22:03/04/20 Chris Amos RN 22:00 03/04/20. BP: 138/87 (regular adult cuff) taken on the left arm, via an automated monitor, while sitting. MAP: 104. HR: 84 (regular, normal rate and strong). RR: 16 (regular, unlabored and normal). O2 saturation: 98% on room air. Temp: 98.3 F (oral). Pain level now: 03/04. --22:03/04/20 Chris Amos RN Departure time: 22:03/04/2020. --22:03/04/20 Chris Amos RN.Locked/Released at 03/04/2020 22:02 by Chris Amos RN Name Value Range Interpretation Code Description Data Catalina rce(s) Supporting Document(s) ID Date Data Source [id number] 03/04/2020 09:27:00 PM EDT [facility] 1 Clinical Report - Physicians/Mid Levels [facility] Emergency Department [address] [place] [address] Phone #: ext- [phone] 03/04/2020 21:16 Patient: ALEIDA MASON Sex: M [...] Penicillins.(hives). 2 Clinical Report - Physicians/Mid Levels [facility] Emergency Department [address] [place] [address] Phone #: ext- [phone] 03/04/2020 21:16 Patient: ALEIDA MAOSN Sex: M : 1990 Age: 29ySOCIAL HISTORYHeavy tobacco smoker- less than 1 pack per day. No alcohol use or drug use.ADDITIONAL NOTESThe nursing notes have been reviewed.PHYSICAL EXAMVital Signs: 03/04/2020 21:18 BP: sitting 149/61. MAP: 90. HR: 77. RR: 16. O2 saturation: 94% on roomair. Temp: 98.3 F. Pain level now: 7/10.Appearance: Alert. Oriented X3. No acute distress.ENT: Voice [...] weight. 3 Clinical Report - Physicians/Mid Levels [facility] Emergency Department [address] [place] [address] Phone #: [phone] gdx- [phone] 03/04/2020 21:16 Patient: ALEIDA MASON Sex: M [...] capsule. Refills: 0. Substitution permitted. Pharmacy - [facility] - [address] [place], [place] [phone]. . Follow-up: Return to the emergency department as needed. Follow up with your healthcare provider in about two days if not better. Call for an appointment. Understanding of the discharge instructions verbalized by patient.(Electronically signed by Florencio Hernandez P.A.-C 03/04/2020 22:16) 4Clinical Report - Physicians/Mid Levels [facility] Emergency Department [address] [place] [address] Phone #: [phone] 03/04/2020 21:16 Patient: ALEIDA MASON Sex: M : 1990 Age: 29y Name Value Range Interpretation Code Description Data Catalina rce(s) Supporting Document(s) Procedure
[2020-10-30] MEDS ORDERED: MORPHINE 10 MG/ML 1ML VIAL (J2270) IV ONE (18:00)
--- NOTE | 2020-10-30 18:15 | HPEPDOC ---
[facility] Medical History & Physical Date of Admission Oct 30, 2020 Date of Service: Oct 30, 2020 History and Physical CHIEF COMPLAINT: right buttock abscess x 3 days HISTORY OF PRESENT ILLNESS: 30 y/o M w h/o depression, gerd, methadone use s/p inpt rehab 2019, on chronic suboxone, prediabetic, abbie, right axillary abscess c/o 3 days worsening pain, swelling in right buttock with purulent drainage , subjective fevers w/o chills, s/p 2 tabs otc ibuprofen q4-6hrs at home w/o relief with 10/100 pain. In the ER minor rx, pt was found to have a white count of [address] pelvis: right perineal perianal gas collection measuring 7.5 x 2.3 x 5.0 cm. Pt was given iv morphine, iv vanco, and hospitalist was called to admit for abscess, right buttock cellulitis, and surgery for incision and drainage and debridement r/o fasciitis. PAST MEDICAL HISTORY: depression, right axillary abscess, h/o methadone abuse, left knee meniscal tear, prediabetic, abbie, mood disorder PAST SURGICAL HISTORY: incision and drainage right axillary abscess, pilonidal cyst SOCIAL HISTORY: single, tobacco use 31 cig/day, social etoh, h/o methadone abuse s/p rehab 2019 FAMILY HISTORY: Father: alive dm htn Mother:alive ALLERGIES: Please see below. REVIEW OF SYSTEMS: per hpi for + findings. negative otherwise on 12pt ros HOME MEDICATIONS: Please see below. PHYSICAL EXAMINATION: VITAL SIGNS: see below GENERAL APPEARANCE: aaox 3 no respiratory distress HEENT:thick neck no jvd, thyromegaly or cervical LAD CARDIOVASCULAR: s1s2 rrr LUNGS: ctab aebe ABDOMEN: obese soft nt nd no hsm EXTREMITIES: no c/c/e SKIN: right posterior buttock medial erythematous 17 cm x 11cm tender nonfluctuant lesion w opn 1cm ulcer draining purulent material w/o induration or crepitus. left medial buttock w 4cm erythematous lesion not draining. LABORATORY DATA: See below. IMAGING: dermal thickening consistent with cellulitis. No fluid collection is appreciated. Higher up, the ischiorectal fat and levator ani muscles appear intact. No bony destructive lesion is seen. IMPRESSION: Findings consistent with a right perineal perianal abscess containing bubbles of air and no discernible fluid. There is surrounding subcutaneous fat edema and dermal thickening consistent with cellulitis. Spontaneously draining abscess versus gas-forming organism. The collection of gas bubbles measures 7.5 x 2.3 x 5.0 cm. <Electronically signed by Henri Mcgee > 10/30/20 8830 MICROBIOLOGY: Please see below. ASSESSMENT/PLAN: 30 y/o M w h/o depression, gerd, methadone use s/p inpt rehab 2019, on chronic suboxone, prediabetic, abbie, right axillary abscess c/o 3 days worsening pain, swelling in right buttock with purulent drainage , subjective fevers w/o chills, s/p 2 tabs otc ibuprofen q4-6hrs at home w/o relief with 10/100 pain. In the ER minor rx, pt was found to have a white count of [address] pelvis: right perineal perianal gas collection measuring 7.5 x 2.3 x 5.0 cm. Pt was given iv morphine, iv vanco, and hospitalist was called to admit for abscess, right buttock cellulitis, and surgery for incision and drainage and debridement r/o fasciitis. Right perineal perianal abscess/ right buttock cellulitis -iv vanco, iv meropenem PCN allergic -if mrsa screen negative, dc vanco. -npo for surgical incision, drainage, and debridement. -general surgeon Dr. Michelle consulted -ivfluids, iv toradol, prn iv morphine for breakthrough pain -wound cx and blood cx ordered h/o methadone abuse on chronic suboxone -resume suboxone once resumed on oral diet prediabetic -regular diet for now gerd -ppi depression -resume home meds tobacco abuse -cessation counselling diet: npo for surgical i&d dvt prophylaxis: compression stockings code: full code. Vital Signs Vital Signs Date Time Temp Pulse Resp B/P (MAP) Pulse Ox O2 Delivery O2 Flow Rate FiO2 10/30/20 17:38 100.0 116 97 125/70 (88) 20 Room Air Laboratory Data Labs 24H Laboratory Tests 2 10/30/20 15:52: Immature Granulocyte % (Auto) 0.9, Neutrophils (%) (Auto) 84.4H, Lymphocytes (%) (Auto) 7.4L, Monocytes (%) (Auto) 6.7H, Eosinophils (%) (Auto) 0.3, Basophils (%) (Auto) 0.3, Neutrophils # (Auto) 15.2H, Lymphocytes # (Auto) 1.3L, Monocytes # (Auto) 1.2H, Eosinophils # (Auto) 0.1, Basophils # (Auto) 0.1, Nucleated Red Blood Cells % (auto) 0.0, Erythrocyte Sedimentation Rate 33H, C-Reactive Protein, Quantitative 9.19H 10/30/20 16:16: Lactic Acid Level 1.7 10/30/20 17:27: CBC/BMP Laboratory Tests 10/30/20 15:52 Microbiology Microbiology 10/30/20 Blood Culture, Received Pending 10/30/20 Blood Culture, Received Pending Home Medications Scheduled Aripiprazole (Aripiprazole) 5 Mg Tablet, 5 MG PO DAILY Buprenorphine HCl/Naloxone HCl (Suboxone 8 mg-2 mg Sl Film) 1 Each Film, 1 STRIP SL DAILY Bupropion Hcl (Bupropion Xl) 150 Mg Tab.er.24h, 150 MG PO DAILY Omeprazole (Omeprazole) 40 Mg Capsule.dr, 40 MG PO DAILY Sertraline HCl (Sertraline HCl) 50 Mg Tablet, 50 MG PO DAILY Trazodone HCl (Trazodone HCl) 100 Mg Tablet, 100 MG PO QHS Allergies Coded Allergies: Penicillins (Verified Allergy, Intermediate, hives, 10/30/20) A-FIB/CHADSVASC A-FIB History Current/History of A-Fib/PAF?: No Current PO Anticoag Therapy: No Age/Risk Factor Scoring CHADSVASC: CHADSVASC Response (Comments) Value Age Risk Factor Age < 65 years old 0 Gender Risk Factor Male 0 Hx of CHF No 0 Hx of HTN No 0 Hx of Stroke/TIA/or VTE No 0 Hx of Diabetes No 0 Hx of Vascular Disease No 0 Total 0 Treatment Treatment ordered: NONE MAC JEFFERS MD Oct 30, 2020 18:15
[2020-10-30 18:22] LABS: RSV AMPLIFICATION NEGATIVE (NEGATIVE)
[2020-10-30] MEDS: MEROPENEM INJ 1 GM in IV 1 EA IV SCH (19:45)
[2020-10-30] MEDS: D5W/0.45% SODIUM CHLORIDE 1,000 ML IV SCH (19:45)
[2020-10-30] MEDS: PANTOPRAZOLE 40MG VIAL (C9113 PER 1) IV SCH (19:45)
[2020-10-30 20:50] VITALS: BP 157/90
[2020-10-31] MEDS: MEROPENEM INJ 1 GM in IV 1 EA IV SCH ×3 (01:16→17:58)
[2020-10-31] MEDS: KETOROLAC 30 MG/ML 1ML VIAL IV SCH ×5 (01:17→23:31)
[2020-10-31 06:14] VITALS: BP 126/79
[2020-10-31] MEDS: D5W/0.45% SODIUM CHLORIDE 1,000 ML IV SCH (06:34)
[2020-10-31 07:10] LABS: HEMOGLOBIN 14.5 g/dl (13.5-17.5); MEAN CORPUSCULAR HGB CONC 34.5 g/dl (32.0-36.5); PLATELET COUNT, AUTOMATED 184 10^3/uL (150-450); RED BLOOD COUNT 4.83 10^6/uL (4.30-6.10); WHITE BLOOD COUNT 14.9 10^3/uL (4.0-10.0)
[2020-10-31 07:44] LABS: BLOOD UREA NITROGEN 11 MG/DL (7-18); CALCIUM LEVEL 8.2 MG/DL (8.5-10.1); CARBON DIOXIDE LEVEL 27 MEQ/L (21-32); CHLORIDE LEVEL 101 MEQ/L (98-107); GLOMERULAR FILTRATION RATE > 60.0 (>60); GLUCOSE, FASTING 299 MG/DL (70-100); POTASSIUM SERUM 3.8 MEQ/L (3.5-5.1); SODIUM LEVEL 136 MEQ/L (136-145)
[2020-10-31] MEDS: PANTOPRAZOLE 40MG VIAL (C9113 PER 1) IV SCH (08:50)
[2020-10-31] MEDS: VANCOMYCIN HCL 1,000 MG, VIAL MATE ADAPTER 1 EACH in D5W 250 ML IV SCH ×3 (08:50→23:35)
--- NOTE | 2020-10-31 10:05 | IPNPDOC ---
Date Seen The patient was seen on 10/31/20. Progress Note SUBJECTIVE: no fever overnight. less drainage and pain is controlled on tylenol and toradol. no other c/o. denies chills pain is 5/10 pain scale tolerable. OBJECTIVE: PHYSICAL EXAMINATION: VITAL SIGNS: see below GENERAL APPEARANCE: aaox 3 no respiratory distress HEENT:thick neck no jvd, thyromegaly or cervical LAD CARDIOVASCULAR: s1s2 rrr LUNGS: ctab aebe ABDOMEN: obese soft nt nd no hsm EXTREMITIES: no c/c/e SKIN: right posterior buttock medial erythematous 17 cm x 11cm tender nonfluctuant lesion w opn 1cm ulcer draining purulent material w/o induration or crepitus. left medial buttock w 4cm erythematous lesion not draining. LABORATORY DATA: See below. IMAGING: dermal thickening consistent with cellulitis. No fluid collection is appreciated. Higher up, the ischiorectal fat and levator ani muscles appear intact. No bony destructive lesion is seen. IMPRESSION: Findings consistent with a right perineal perianal abscess containing bubbles of air and no discernible fluid. There is surrounding subcutaneous fat edema and dermal thickening consistent with cellulitis. Spontaneously draining abscess versus gas-forming organism. The collection of gas bubbles measures 7.5 x 2.3 x 5.0 cm. <Electronically signed by Henri Mcgee > 10/30/20 1353 MICROBIOLOGY: Please see below. ASSESSMENT/PLAN: 30 y/o M w h/o depression, gerd, methadone use s/p inpt rehab 2019, on chronic suboxone, prediabetic, abbie, right axillary abscess c/o 3 days worsening pain, swelling in right buttock with purulent drainage , subjective fevers w/o chills, s/p 2 tabs otc ibuprofen q4-6hrs at home w/o relief with 10/100 pain. In the ER minor rx, pt was found to have a white count of [address] pelvis: right perineal perianal gas collection measuring 7.5 x 2.3 x 5.0 cm. Pt was given iv morphine, iv vanco, and hospitalist was called to admit for abscess, right buttock cellulitis, and surgery for incision and drainage and debridement r/o fasciitis. Right perineal perianal abscess/ right buttock cellulitis -iv vanco, iv meropenem PCN allergic -if mrsa screen negative, dc vanco. -ok for regular diet per surgery -general surgeon Dr. Michelle consulted -ivfluids, iv toradol, prn iv morphine for breakthrough pain -wound cx and blood cx ordered h/o methadone abuse on chronic suboxone -resume suboxone once resumed on oral diet prediabetic -regular diet for now gerd -ppi depression -resume home meds tobacco abuse -cessation counselling diet:regular dvt prophylaxis: compression stockings code: full code. VS, I&O, 24H, Fishbone Vital Signs/I&O Vital Signs Date Time Temp Pulse Resp B/P (MAP) Pulse Ox O2 Delivery O2 Flow Rate FiO2 10/31/20 06:14 97.6 87 20 126/79 (95) 97 Room Air I&O- Last 24 Hours up to 6 AM 10/31/20 06:00 Intake Total 2425 ml Balance 2425 ml Laboratory Data 24H LABS Laboratory Tests 2 10/30/20 15:52: Immature Granulocyte % (Auto) 0.9, Neutrophils (%) (Auto) 84.4H, Lymphocytes (%) (Auto) 7.4L, Monocytes (%) (Auto) 6.7H, Eosinophils (%) (Auto) 0.3, Basophils (%) (Auto) 0.3, Neutrophils # (Auto) 15.2H, Lymphocytes # (Auto) 1.3L, Monocytes # (Auto) 1.2H, Eosinophils # (Auto) 0.1, Basophils # (Auto) 0.1, Nucleated Red Blood Cells % (auto) 0.0, Erythrocyte Sedimentation Rate 33H, C-Reactive Prot ein, Quantitative 9.19H 10/30/20 16:16: Lactic Acid Level 1.7 10/30/20 17:27: Coronavirus (COVID-19)(PCR) NEGATIVE, Influenza Type A (RT-PCR) NEGATIVE, Influenza Type B (RT-PCR) NEGATIVE, Respiratory Syncytial Virus (PCR) NEGATIVE, Methicillin-Resist S.aureus DNA PCR NOT DETECTED 10/31/20 06:47: Nucleated Red Blood Cells % (auto) 0.0 CBC/BMP Laboratory Tests 10/30/20 15:52 10/31/20 06:47 Microbiology Microbiology 10/30/20 Blood Culture, Received Pending 10/30/20 Blood Culture, Received Pending MAC JEFFERS MD Oct 31, 2020 07:17
--- NOTE | 2020-10-31 10:43 | IPNPDOC ---
Text Note Date of Service The patient was seen on 10/31/20. NOTE No acute events overnight. Pain is improved, and he is able to move his legs and pass flatus without any pain. No fevers overnight. VSSAF NAD skin - b/l buttocks inflammation and swelling has improved. There is still some purulent drainage and air coming out, the erythema is not spreading labs - below A) 30y/o male with a left gluteal abscess, and a right perirectal abscess P) reg diet abx ambulate in halls monitor labs possible d/c tomorrow if continue to improve Zac Michelle DO VS,Fishbone, I+O VS, Fishbone, I+O Laboratory Tests 10/30/20 15:52 10/31/20 06:47 Vital Signs Date Time Temp Pulse Resp B/P (MAP) Pulse Ox O2 Delivery O2 Flow Rate FiO2 10/31/20 06:14 97.6 87 20 126/79 (95) 97 Room Air I&O- Last 24 Hours up to 6 AM 10/31/20 06:00 Intake Total 2425 ml Balance 2425 ml BRANDY MICHELLE DO Oct 31, 2020 10:43
[2020-10-31 14:00] VITALS: BP 151/99
[2020-10-31] MEDS ORDERED: VANCOMYCIN HCL 1,000 MG, VIAL MATE ADAPTER 1 EACH in D5W 250 ML IV ONE (14:00)
[2020-10-31 20:13] VITALS: BP 158/110
[2020-10-31] MEDS ORDERED: traZODone 100 MG TAB PO SCH (23:00)
[2020-10-31] MEDS: BUPRENORPHINE/NALOXONE 8-2MG SUBLINGUAL TABLET(SUBOXONE) SL SCH (23:35)
[2020-11-01] MEDS: MEROPENEM INJ 1 GM in IV 1 EA IV SCH (01:17)
[2020-11-01 06:02] VITALS: BP 146/93
[2020-11-01] MEDS: KETOROLAC 30 MG/ML 1ML VIAL IV SCH (06:08)
[2020-11-01 06:50] LABS: HEMATOCRIT 42.4 % (42.0-52.0); HEMOGLOBIN 14.4 g/dl (13.5-17.5); MEAN CORPUSCULAR HEMOGLOBIN 29.8 pg (27.0-33.0); MEAN CORPUSCULAR VOLUME 87.6 fl (80.0-96.0); PLATELET COUNT, AUTOMATED 218 10^3/uL (150-450); RED BLOOD COUNT 4.84 10^6/uL (4.30-6.10); WHITE BLOOD COUNT 10.3 10^3/uL (4.0-10.0)
[2020-11-01 07:11] LABS: BLOOD UREA NITROGEN 13 MG/DL (7-18); CALCIUM LEVEL 8.4 MG/DL (8.5-10.1); CARBON DIOXIDE LEVEL 30 MEQ/L (21-32); CHLORIDE LEVEL 103 MEQ/L (98-107); CREATININE FOR GFR 0.67 MG/DL (0.70-1.30); GLOMERULAR FILTRATION RATE > 60.0 (>60); GLUCOSE, FASTING 265 MG/DL (70-100); POTASSIUM SERUM 3.8 MEQ/L (3.5-5.1); SODIUM LEVEL 139 MEQ/L (136-145)
--- NOTE | 2020-11-01 07:55 | IPNPDOC ---
Text Note Date of Service The patient was seen on 11/01/20. NOTE No acute events overnight. Pain is improved, and he is able to move around a lot more. There is still lots of drainage, but the swelling and pain are better. VSSAF NAD skin - b/l buttocks inflammation and swelling has improved. There is still some purulent drainage, the erythema is spreading a little, but it is physical security manager in color and much softer labs - below wbc - 14.9>10.3 A) 30y/o male with a left gluteal abscess, and a right perirectal abscess P) reg diet abx ambulate in [place] d/c today with PO abx, and follow up with me in the office AMINATAN Zac Michelle DO VS,Chavo, I+O VS, Chavo, I+O Laboratory Tests 11/01/20 06:07 Vital Signs Date Time Temp Pulse Resp B/P (MAP) Pulse Ox O2 Delivery O2 Flow Rate FiO2 11/01/20 06:02 96.2 84 20 146/93 (110) 94 Room Air I&O- Last 24 Hours up to 6 AM 11/01/20 06:00 Intake Total 3670 ml Output Total 0 ml Balance 3670 ml BRANDY MICHELLE DO Nov 01, 2020 07:55
[2020-11-01] MEDS: VANCOMYCIN HCL 1,000 MG, VIAL MATE ADAPTER 1 EACH in D5W 250 ML IV SCH (08:18)
[2020-11-01] MEDS: PANTOPRAZOLE 40MG VIAL (C9113 PER 1) IV SCH (08:18)
[2020-11-01] MEDS: BUPRENORPHINE/NALOXONE 8-2MG SUBLINGUAL TABLET(SUBOXONE) SL SCH (08:20)
[2020-11-01] MEDS ORDERED: buPROPion **XL** TABLET 150MG (WELLBUTRIN XL) PO SCH (09:00)
[2020-11-01] MEDS ORDERED: SERTRALINE HCL 50 MG TAB PO SCH (09:00)
[2020-11-01] MEDS ORDERED: INFLUENZA QUADRIVALENT PF VACCINE 0.5ML SYRINGE IM ONE (09:00)
[2020-11-01] MEDS ORDERED: BUPRENORPHINE/NALOXONE 8-2MG SUBLINGUAL TABLET(SUBOXONE) SL SCH (09:00)
[2020-11-01] MEDS ORDERED: BACT800T5 PO (09:54)
[2020-11-01] MEDS ORDERED: BACTRIM 160MG/800MG DS TAB PO ONE (10:00)
--- NOTE | 2020-11-01 11:37 | DS.PDOC ---
Discharge Summary General Date of Admission Oct 30, 2020 at 16:52 Date of Discharge 11/01/20 Discharge Summary DISCHARGE DIAGNOSES: left gluteal abscess right perirectal abscess sepsis history of methadone abuse depression gerd prediabetic abbie h/o right axillary abscess HISTORY OF PRESENT ILLNESS: 30 y/o M w h/o depression, gerd, methadone use s/p inpt rehab 2019, on chronic suboxone, prediabetic, abbie, right axillary abscess c/o 3 days worsening pain, swelling in right buttock with purulent drainage , subjective fevers w/o chills, s/p 2 tabs otc ibuprofen q4-6hrs at home w/o relief with 10/100 pain. In the ER minor rx, pt was found to have a white count of [address] pelvis: right perineal perianal gas collection measuring 7.5 x 2.3 x 5.0 cm. Pt was given iv morphine, iv vanco, and hospitalist was called to admit for abscess, right buttock cellulitis, and surgery for incision and drainage and debridement r/o fasciitis. HOSPITAL COURSE: Patient was admitted for right perirectal abscess, and left gluteal abscess which were draining openly with low grade temp 100, wbc 18 , tachycardic, and treated with iv vanco and meropenem, evaluated by general surgery w/o need for operative debridement. pt's blood cx were negative. He had no fever or chills with improved cellulitic changes and no signs of fasciitis after abscess drainage. pt was advanced to regular diet and pain was controlled . He received iv toradol and tylenol for pain andprn morphine for breakthrough. He is to c omplete a total of 7days abx as outpt with prn fu w dr garcia. outpt pcp fu in 5days. DISCHARGE MEDICATIONS: Please see below. ALLERGIES: Please see below. PHYSICAL EXAMINATION ON DISCHARGE: VITAL SIGNS: Please see below. GENERAL APPEARANCE: aaox 3 no respiratory distress HEENT:thick neck no jvd, thyromegaly or cervical LAD CARDIOVASCULAR: s1s2 rrr LUNGS: ctab aebe ABDOMEN: obese soft nt nd no hsm EXTREMITIES: no c/c/e SKIN: right posterior buttock medial decreased erythema 17 cm x 11cm w open 1cm ulcer w/o induration or crepitus. left medial buttock w 4cm erythematous lesion not draining. LABORATORY DATA: Please see below. IMAGING: INDICATION: extensive perirectal abscess. COMPARISON: Comparison CT study abdomen pelvis January 17, 2014.. TECHNIQUE: Helical scanning is acquired following the intravenous injection of 100 mL of Isovue 370. 3 mm axial images are generated. Coronal and sagittal MPR images are generated and reviewed. FINDINGS: Preliminary digital bullet charging machine operator radiograph demonstrates abnormal air densities in the perineum overlying the scrotum. The visualized bowel gas pattern is normal. The bottom edge of the liver is included in the scan field of view and there is marked diffuse fatty infiltration in the liver. A normal appendix is seen in the right lower quadrant. Small and large bowel loops are unremarkable in the pelvis. And visualized abdomen. Lower poles of the kidneys are included in the field of view and the symmetric enhancement is seen. No pelvic adenopathy is observed. Urinary bladder, prostate and seminal vesicles are unremarkable. Scanning conducted into the perineum and inferior gluteal region demonstrates mottled air collection consistent with a perineal abscess on the right side. This measures 7.5 cm in anterior to posterior dimension by 5 cm craniocaudal by 2.3 cm right to left. The cavity appears to contain only air bubbles with some surrounding edema and dermal thickening consistent with cellulitis. No fluid collection is appreciated. Higher up, the ischiorectal fat and levator ani muscles appear intact. No bony destructive lesion is seen. IMPRESSION: Findings consistent with a right perineal perianal abscess containing bubbles of air and no discernible fluid. There is surrounding subcutaneous fat edema and d ermal thickening consistent with cellulitis. Spontaneously draining abscess versus gas-forming organism. The collection of gas bubbles measures 7.5 x 2.3 x 5.0 cm. <Electronically signed by Henri Lama 10/30/20 1629 DD: John Mcgee MD 10/30/20 1624 DT: FLAVIA 10/30/20 1629 DS: [place] 10/30/20 1624 10/30/20 1624 ACTIVITY: As tolerated DIET: regular DISCHARGE PLAN: complete 7 days of bactrim. fu w pcp 5 days DISPOSITION: dc home DISCHARGE INSTRUCTIONS: fu w pcp 5days DISCHARGE CONDITION: Stable TIME SPENT ON DISCHARGE: 30 minutes. Vital Signs/I&Os Vital Signs Date Time Temp Pulse Resp B/P (MAP) Pulse Ox O2 Delivery O2 Flow Rate FiO2 11/01/20 06:02 96.2 84 20 146/93 (110) 94 Room Air I&O- Last 24 Hours up to 6 AM 11/01/20 06:00 Intake Total 3670 ml Output Total 0 ml Balance 3670 ml Laboratory Data Labs 24H Laboratory Tests 2 11/01/20 06:07: Nucleated Red Blood Cells % (auto) 0.0, Anion Gap 6L, Glomerular Filtration Rate > 60.0, Calcium Level 8.4L CBC/BMP Laboratory Tests 11/01/20 06:07 Microbiology Microbiology 10/30/20 Blood Culture - Preliminary, Resulted No growth after 24 hours . All specim... 10/30/20 Blood Culture - Preliminary, Resulted No growth after 24 hours . All specim... Discharge Medications Scheduled Aripiprazole (Aripiprazole) 5 Mg Tablet, 5 MG PO DAILY, (Reported) Buprenorphine HCl/Naloxone HCl (Suboxone 8 mg-2 mg Sl Film) 1 Each Film, 1 STRIP SL DAILY, (Reported) Bupropion Hcl (Bupropion Xl) 150 Mg Tab.er.24h, 150 MG PO DAILY, (Reported) Omeprazole (Omeprazole) 40 Mg Capsule.dr, 40 MG PO DAILY, (Reported) Sertraline HCl (Sertraline HCl) 50 Mg Tablet, 50 MG PO DAILY, (Reported) Sulfamethoxazole/Trimethoprim (Bactrim Ds Tablet) 1 Each Tablet, 1 TAB PO BID Trazodone HCl (Trazodone HCl) 100 Mg Tablet, 100 MG PO QHS, (Reported) Allergies Coded Allergies: Penicillins (Verified Allergy, Intermediate, hives, 10/30/20) MAC JEFFERS MD Nov 01, 2020 11:37
== END 2020-11-01 11:00 | disposition home or self-care (01) | DRG 720 ==
LOC: M ED 13:36 → M ED INP 16:52 → M MS5PR 20:58
PROVIDERS: ADMIT General Practice; ATTEND General Practice
DX: A41.9 Sepsis, unspecified organism (principal); K61.1 Rectal abscess; L02.31 Cutaneous abscess of buttock; F32.9 Major depressive disorder, single episode, unspecified; K21.9 Gastro-esophageal reflux disease without esophagitis; G47.33 Obstructive sleep apnea (adult) (pediatric); R73.03 Prediabetes; Z88.0 Allergy status to penicillin; Z79.899 Other long term (current) drug therapy; F17.200 Nicotine dependence, unspecified, uncomplicated

== ENCOUNTER → 2020-11-13 | Outpatient (CLI) | payer OTHER ==
[~2020-11-13] MED LIST: ARIP1TAB6 PO; BACT800T5 PO; BUNA10MI; BUPR150T4 PO; OMEP-221 PO; SERT50TA29 PO; SUBO8MIS SL; TRAZ-257 PO
[2020-11-13 18:03] LABS: HEMOGLOBIN A1c 10.5 %
[2020-11-13 18:19] LABS: ALBUMIN 3.4 GM/DL (3.2-5.2); ALT/SGPT 108 U/L (12-78); BILIRUBIN,TOTAL 0.3 MG/DL (0.2-1.0); BLOOD UREA NITROGEN 9 MG/DL (7-18); CALCIUM LEVEL 9.2 MG/DL (8.5-10.1); CARBON DIOXIDE LEVEL 30 MEQ/L (21-32); CHLORIDE LEVEL 95 MEQ/L (98-107); CHOLESTEROL LEVEL 216 MG/DL (<200); CHOLESTEROL RISK RATIO 8.307 (<5); CREATININE FOR GFR 0.84 MG/DL (0.70-1.30); GLOMERULAR FILTRATION RATE > 60.0 (>60); GLUCOSE, FASTING 355 MG/DL (70-100); HDL CHOLESTEROL 26 MG/DL (>40); NON-HDL-C 190 MG/DL; POTASSIUM SERUM 4.3 MEQ/L (3.5-5.1); SODIUM LEVEL 132 MEQ/L (136-145); TRIGLYCERIDES LEVEL 1158 MG/DL (<150)
== END ==
LOC: M LAB 16:41
PROVIDERS: ATTEND Internal Medicine
DX: Z13.1 Encounter for screening for diabetes mellitus (principal); Z13.6 Encounter for screening for cardiovascular disorders

== ENCOUNTER 2020-11-20 11:09 | Outpatient (RCR) | payer MEDICAID ==
--- NOTE | 2020-10-30 20:04 | CR ---
CONSULTATION DATE: 10/30/2020 REASON FOR CONSULTATION: Right buttocks abscess. HISTORY OF PRESENT ILLNESS: Patient is a 30-year-old male who presents with a history of a pilonidal cyst and gluteal abscess on the right side that he has had for a couple of years. Over the past week or so, it started to increase in size. Three days ago, it opened up and drained. Since then, it has been increasing in size again and becoming extremely painful. He came into the Emergency Room, had an elevated white count at just over [address] as a [address] of the pelvis that showed a gas collection measuring 7 x 2 x 5 cm in the right perineal area, concerning for abscess versus gas forming bacteria. Because of that, I was called for evaluation. He has had slight improvement since being here mainly due to the morphine, however, he is still having significant pain. There is redness, swelling on both sides. He has had the swelling in the past that has gone away on its own. He has never required any surgical procedures for this before. PAST MEDICAL HISTORY: Depression, right axillary abscess, history of methadone abuse, left knee meniscal tear, pre-diabetes, obstructive sleep apnea, mood disorder. PAST SURGICAL HISTORY: I and D of a right axillary abscess and a pilonidal cystectomy. FAMILY HISTORY: Noncontributory. SOCIAL HISTORY: Smokes daily. Social alcohol usage. History of methadone abuse; status post rehab last year. ALLERGIES: Penicillin. REVIEW OF SYSTEMS: Pertinent positives and negatives as stated in HPI. PHYSICAL EXAMINATION: GENERAL: Alert and oriented x3, in no acute distress. VITALS: Temperature 100, pulse 116, respirations 20, blood pressure 125/70, pulse oximetry 97% on room air. HEENT: Pupils equally round and reactive to light and accommodation. HEART: S1, S2, regular rate and rhythm. LUNGS: Clear to auscultation bilaterally. ABDOMEN: Soft, nontender, non-distended, obese. SKIN: In the perineum, the left buttocks, there is about 4 cm area of erythema with slight induration of the middle of it, some slight scabbing. No active drainage at this time. On the right side in the entire gluteal area and medially towards the right perirectal area is all significantly inflamed, swollen and extremely tender to palpation diffusely. In the middle of the right medial gluteal fold, there is slight induration and a slight scabbing that appears to be where he had previous spontaneous drainage from his abscess, but no acute active drainage at this time. LABORATORY DATA: White count 18, hemoglobin 15.5, platelets 226,000. Lactic acid 1.7. COVID negative. IMAGING STUDIES: CT pelvis obtained shows right perineal, perianal abscess containing bubbles of air, no distinct fluid. There is surrounding subcutaneous fat, edema and dermal thickening, consistent with cellulitis. Spontaneously draining abscess versus gas forming organism. Collection of gas bubbles measures 7.5 x 2.3 x 5 cm in size. ASSESSMENT AND PLAN: The patient is a 30-year-old male who came in with a right perianal and gluteal abscess and a left gluteal abscess. Recommendation to proceed with incision and drainage in the Emergency Room due to the concern for possible necrotizing fasciitis. If the bedside incision drainage were to have shown any signs of necrotic tissue, then I would have brought him straight to the Operating Room. I did complete the drainage already and that does not appear to be the case. There was a little bit of blood from the left side and some just foul smelling stool-like material from the right along with some air bubbles. At this time, recommendation is to monitor him overnight, I.V. fluids, and antibiotics. Will likely keep him n.p.o. I will reevaluate him first thing in the morning. If he is improving, then we will leave it as is and treat with antibiotics. If he shows any signs of it getting worse, then I will take him to the Operating Room for a better washout and drainage.
--- NOTE | 2020-10-30 20:46 | RO ---
OPERATIVE NOTE DATE OF OPERATION: 10/30/2020 PREOPERATIVE DIAGNOSIS: Bilateral buttock abscess. POSTOPERATIVE DIAGNOSIS: Bilateral buttock abscess. PROCEDURE: Bedside incision and drainage of bilateral buttock abscesses. SURGEON: Lan Michelle DO ZYGLO INSPECTOR: None. ANESTHESIA: 5 ml with 2% lidocaine with epinephrine, local. COMPLICATIONS: None. ESTIMATED BLOOD LOSS: 5 ml. INDICATION FOR PROCEDURE: The patient is a 30-year-old male who presents with a history of a worsening right gluteal abscess. He has had it for many years in the same location, recently over last week, it swelled up. About three days ago, he was able to squeeze it in the shower. He was able to get some foul smelling fluid out of it. It has not drained again since, but the pain and swelling is getting drastically worse, so he came in for evaluation. In the emergency room, he had elevated white count over 18, as well as a CT of the pelvis showing a gas collection of 7 x 2 x 5 cm in the right peritoneal area. He is complaining of severe pain. It is slightly controlled with morphine. However, there is significant swelling and erythema; and due to the risk of possible gas forming bacteria, I recommended to proceed with bedside incision and drainage for better visualization. Risks and benefits of the procedure are not limited to, but included bleeding, infection, damage to surrounding structure and need for further surgery discussed in detail with the patient. Informed consent was obtained and procedure was planned. DESCRIPTION OF PROCEDURE: Bilateral gluteal areas were sterilely prepped and draped with Chlorhexidine. Next, time-out was done to confirmed proper patient and proper procedure. Next, Local was injected 2 ml on both the left and the right side. Next, using an 11 blade scalpel, first on the left side, there was a small abscess there as well. The incision was made about a cm right in the middle of the most fluctuant portion of it. Some bloody fluid was expelled, but no signs of any purulent fluid or any necrotizing infection; that was then covered with a 4 x 4 on the right side, much larger area right where there is most indurated portion of it. Again, I poked it with an 11 blade scalpel. Had an immediate ornelas of air expelled from the area. I extended the incision and made a cruciate incision about 1.5 x 1.5 cm in size. It was able to probe the wound with some cotton tip applicators and was able to get a significant amount of purulent fluid that smelled like stool coming out of it. Once all the fluid was expelled, I irrigated the wound with the remaining 5 ml of lidocaine from the syringe. Once that was completed, both wounds were covered with just dry gauze ending the procedure.
[~2020-11-20 11:09] MED LIST changes: +BUPR150T12 PO; -BUPR150T4 PO
== END 2020-11-22 ==
LOC: M OUTALCOH 11:09
PROVIDERS: ATTEND Psychiatry & Neurology Psychiatry
DX: F15.20 Other stimulant dependence, uncomplicated (principal); Z72.0 Tobacco use

== ENCOUNTER → 2020-12-04 | Outpatient (CLI) | payer MEDICAID ==
[~2020-12-04] MED LIST changes: +ABIL1TAB11 PO; +LOPI600T PO; +METF-838 PO
== END ==
LOC: M LABSMTC 10:37
PROVIDERS: ATTEND Anesthesiology
DX: Z01.812 Encounter for preprocedural laboratory examination (principal); Z20.822 Contact with and (suspected) exposure to COVID-19

== ENCOUNTER 2020-12-09 08:53 | Day surgery (SDC) | payer OTHER ==
[~2020-12-09] VITALS: Ht 175.3 cm; Wt 133.8 kg
[~2020-12-09 08:53] MED LIST changes: +NS 1,000 ML IV ONE
[2020-12-09] MEDS ORDERED: propofoL 200 MG/20 ML VIAL As Ordered ONE (09:14)
[2020-12-09] MEDS ORDERED: LIDOCAINE 2% 100MG/5ML SDV (FOR ANES.) As Ordered ONE (09:14)
--- NOTE | 2020-12-09 10:09 | ROOR ---
Patient Name: Victor Hugo Lerma Procedure Date: 12/09/2020 9:49 AM Date of : 1990 Age: 30 Room: [facility] Gender: Male Note Status: Finalized Procedure: Colonoscopy Indications: Hematochezia Providers: DO Keila Jones MD: Madelin Sanchez Md Requesting Provider: Medicines: Propofol per Anesthesia Complications: No immediate complications. Procedure: Pre-Anesthesia Assessment: - Prior to the procedure, a History and Physical was performed, and patient medications and allergies were reviewed. The patient is competent. The risks and benefits of the procedure and the sedation options and risks were discussed with the patient. All questions were answered and informed consent was obtained. Patient identification and proposed procedure were verified by the physician, the nurse, the induction coordination engineer and the elevator technician in the endoscopy suite. Mental Status Examination: alert and oriented. Airway Examination: normal oropharyngeal airway and neck mobility. Respiratory Examination: clear to auscultation. CV Examination: normal. Prophylactic Antibiotics: The patient does not require prophylactic antibiotics. Prior Anticoagulants: The patient has taken no previous anticoagulant or antiplatelet agents. ASA Grade Assessment: II - A patient with mild systemic disease. After reviewing the risks and benefits, the patient was deemed in satisfactory condition to undergo the procedure. The anesthesia plan was to use monitored anesthesia care (MAC). Immediately prior to administration of medications, the patient was re-assessed for adequacy to receive sedatives. The heart rate, respiratory rate, oxygen saturations, blood pressure, adequacy of pulmonary ventilation, and response to care were monitored throughout the procedure. The physical status of the patient was re-assessed after the procedure. The Colonoscope was introduced through the anus and advanced to the cecum, identified by appendiceal orifice and ileocecal valve. The colonoscopy was performed without difficulty. The patient tolerated the procedure well. Findings: Non-bleeding internal hemorrhoids were found during retroflexion. The hemorrhoids were mild and Grade II (internal hemorrhoids that prolapse but reduce spontaneously). A few small-mouthed diverticula were found in the sigmoid colon. Impression: - Non-bleeding internal hemorrhoids. - Diverticulosis in the sigmoid colon. - No specimens collected. Recommendation: - Patient has a contact number available for emergencies. The signs and symptoms of potential delayed complications were discussed with the patient. Return to normal activities tomorrow. Written discharge instructions were provided to the patient. - Repeat colonoscopy at age 48 for screening purposes. - Return to my office PRN. Procedure Code(s): --- Professional --- 90166, Colonoscopy, flexible; diagnostic, including collection of specimen(s) by brushing or washing, when performed (separate procedure) Diagnosis Code(s): --- Professional --- K64.1, Second degree hemorrhoids K92.1, Melena (includes Hematochezia) K57.30, Diverticulosis of large intestine without perforation or abscess without bleeding CPT copyright 2019 [employer]. All rights reserved. The codes documented in this report are preliminary and upon encephalographer review may be revised to meet current compliance requirements. Lan Michelle DO 12/09/2020 10:09:39 AM Electronically signed by Lan Michelle DO Number of Addenda: 0 Note Initiated On: 12/09/2020 9:49 AM Estimated Blood Loss: Estimated blood loss: none.
[2020-12-09 10:25] VITALS: BP 128/72
== END 2020-12-09 10:32 | disposition home or self-care (01) ==
LOC: M OPP 08:53
PROVIDERS: ATTEND Surgery
DX: K92.1 Melena (principal); K64.1 Second degree hemorrhoids; K57.30 Diverticulosis of large intestine without perforation or abscess without bleeding; E78.5 Hyperlipidemia, unspecified; E11.9 Type 2 diabetes mellitus without complications; K21.9 Gastro-esophageal reflux disease without esophagitis; F41.9 Anxiety disorder, unspecified; F32.9 Major depressive disorder, single episode, unspecified; F43.10 Post-traumatic stress disorder, unspecified; F17.210 Nicotine dependence, cigarettes, uncomplicated; Z88.0 Allergy status to penicillin; Z79.84 Long term (current) use of oral hypoglycemic drugs; Z79.899 Other long term (current) drug therapy

== ENCOUNTER → 2020-12-14 | Outpatient (CLI) | payer OTHER ==
[~2020-12-14] MED LIST changes: -NS 1,000 ML IV ONE
[2020-12-14 14:27] LABS: APPEARANCE, URINE CLEAR (CLEAR); BACTERIA, URINE AUTO NEGATIVE (NEGATIVE); BILIRUBIN, URINE AUTO NEGATIVE (NEGATIVE); BLOOD, URINE BLOOD NEGATIVE (NEGATIVE); COLOR, URINE YELLOW (YELLOW); GLUCOSE, URINE (UA) AUTO 3+ mg/dL (NEGATIVE); KETONE, URINE AUTO TRACE mg/dL (NEGATIVE); LEUKOCYTE ESTERASE, URINE AUTO NEGATIVE (NEGATIVE); NITRITE, URINE AUTO NEGATIVE (NEGATIVE); PROTEIN, URINE AUTO 1+ mg/dL (NEGATIVE); RBC, URINE AUTO 0 /HPF (0-3); SPECIFIC GRAVITY URINE AUTO 1.023 (1.002-1.035); SQUAMOUS EPITHELIAL CELL UR AU 2 /HPF (0-6); UROBILINOGEN, URINE AUTO 0.2 mg/dL (0.0-2.0); WBC, URINE AUTO 1 /HPF (0-3)
[2020-12-14 16:18] LABS: MAU/CREAT RATIO 122.6 MCG/MG (0.0-30.0)
[2020-12-14 17:36] LABS: ALBUMIN 3.7 GM/DL (3.2-5.2); ALT/SGPT 89 U/L (12-78); BILIRUBIN,TOTAL 0.4 MG/DL (0.2-1.0); BLOOD UREA NITROGEN 15 MG/DL (7-18); CALCIUM LEVEL 9.1 MG/DL (8.5-10.1); CARBON DIOXIDE LEVEL 30 MEQ/L (21-32); CHLORIDE LEVEL 98 MEQ/L (98-107); CREATININE FOR GFR 0.68 MG/DL (0.70-1.30); FREE T4 1.07 NG/DL (0.76-1.46); GLOMERULAR FILTRATION RATE > 60.0 (>60); GLUCOSE, FASTING 284 MG/DL (70-100); HEPATITIS A ANTIBODY IGM NEGATIVE (NEGATIVE); HEPATITIS B CORE ANTIBODY IGM NEGATIVE (NEGATIVE); HEPATITIS B SURFACE ANTIGEN NEGATIVE (NEGATIVE); HEPATITIS C VIRUS ABY INDEX < 0.0 INDEX (<0.8); POTASSIUM SERUM 4.3 MEQ/L (3.5-5.1); SODIUM LEVEL 133 MEQ/L (136-145); THYROID STIMULATING HORMONE 0.803 uIU/ML (0.358-3.740); TOTAL PROTEIN 7.6 GM/DL (6.4-8.2)
== END ==
LOC: M LAB 11:43
PROVIDERS: ATTEND Internal Medicine
DX: R74.01 Elevation of levels of liver transaminase levels (principal); E78.1 Pure hyperglyceridemia; E11.9 Type 2 diabetes mellitus without complications

== ENCOUNTER 2020-12-22 15:00 | Outpatient (RCR) | payer MEDICAID | END 2020-12-23 | LOC: M OUTALCOH 15:00 | PROVIDERS: ATTEND Psychiatry & Neurology Addiction Medicine | DX: F15.20 Other stimulant dependence, uncomplicated (principal); Z72.0 Tobacco use ==

== ENCOUNTER → 2021-01-01 | Outpatient (CLI) | payer OTHER ==
--- NOTE | 2021-01-01 09:12 | REP ---
INDICATION: R74.01 TRANSAMINITIS COMPARISON: None. TECHNIQUE: Real time rios scale ultrasound examination using curved array transducer. FINDINGS: Liver is enlarged measuring 27 cm in craniocaudal length and is diffusely hyperechoic with poor through transmission suggesting fatty infiltration. The pancreas is incompletely evaluated due to interposed bowel gas. The gallbladder is normal and without gallstones, wall thickening, or pericholecystic fluid. No biliary ductal dilatation is appreciated and the common bile duct measures 2.6 mm diameter. Right kidney is normal in reniform shape without hydronephrosis and measures 13.7 x 6.8 x 7.8 cm. No ascites in the visualized right upper quadrant. IMPRESSION: Hepatomegaly and hepatosteatosis. <Electronically signed by Dyoln Blum > 01/01/21 0982
== END ==
LOC: M WHC 08:28
PROVIDERS: ATTEND Internal Medicine
DX: R74.01 Elevation of levels of liver transaminase levels (principal)

== ENCOUNTER → 2021-01-22 | Outpatient (RCR) | payer MEDICAID | LOC: M OUTALCOH 12-25 15:00 | PROVIDERS: ATTEND Psychiatry & Neurology Psychiatry | DX: F15.20 Other stimulant dependence, uncomplicated (principal); F17.200 Nicotine dependence, unspecified, uncomplicated ==

== ENCOUNTER 2021-02-19 15:00 | Outpatient (RCR) | payer MEDICAID | END 2021-02-22 | LOC: M OUTALCOH 15:00 | PROVIDERS: ATTEND Psychiatry & Neurology Psychiatry | DX: F15.20 Other stimulant dependence, uncomplicated (principal); Z72.0 Tobacco use ==

== ENCOUNTER → 2021-02-27 | Outpatient (CLI) | payer OTHER ==
--- NOTE | 2021-03-01 14:57 | SLEEPCENT ---
NOCTURNAL POLYSOMNOGRAPHY DATE: 02/27/2021 ORDERED BY: ANDREA Cox Nocturnal polysomnography was performed for evaluation of sleep physiology in this patient with a history of excessive somnolence and abnormal nocturnal recording oximetry tracings. 7 hours and 47 minutes of data were reviewed. There were 404 minutes of sleep identified. Sleep latency was quite short at 1 minute. REM sleep was delayed at 229 minutes. Sleep architecture improved later in the study after interventions were made. Overall sleep efficiency 88.4%. The electrocardiogram showed a sinus rhythm with an average heart rate of 80 beats per minute; rate range 65 to 95. EEG showed normal waveforms for wake and sleep. There were 431 respiratory events identified of 10 seconds in duration or greater for an apnea-hypopnea index of 64. Having clearly established the presence of obstructive sleep apnea syndrome early in testing, the study was stopped shortly after midnight for the application of pressure therapy. The patient was then fit with a ResMed AirTouch F20 full face mask of medium size, 4 cm of water pressure were applied to the circuit and the lights were extinguished. Throughout the remaining hours of testing pressure titration was performed to the optimal pressure of 15. With which pressure, the patient slept through REM without respiratory events or oxygen desaturations in the supine posture. IMPRESSION: Severe obstructive sleep apnea syndrome (G47.33), apnea-hypopnea index 64. RECOMMENDATION: Nightly use of pressure therapy 15 cm of water.
== END ==
LOC: M SLEEP 20:00
PROVIDERS: ATTEND Physician Assistant
DX: R40.0 Somnolence (principal)

== ENCOUNTER → 2021-03-14 | Outpatient (CLI) | payer OTHER ==
[2021-03-14 10:29] LABS: HEMOGLOBIN A1c 6.7 %
[2021-03-14 10:37] LABS: ALBUMIN 3.9 GM/DL (3.2-5.2); ALT/SGPT 81 U/L (12-78); BILIRUBIN,TOTAL 0.6 MG/DL (0.2-1.0); BLOOD UREA NITROGEN 13 MG/DL (7-18); CARBON DIOXIDE LEVEL 27 MEQ/L (21-32); CHLORIDE LEVEL 105 MEQ/L (98-107); CREATININE FOR GFR 0.89 MG/DL (0.70-1.30); FERRITIN 252 NG/ML (26-388); GLOMERULAR FILTRATION RATE > 60.0 (>60); GLUCOSE, FASTING 113 MG/DL (70-100); IRON (FE) 79 UG/DL (65-175); PERCENT SATURATION 20.6 % (19.7-50.0); POTASSIUM SERUM 4.2 MEQ/L (3.5-5.1); SODIUM LEVEL 137 MEQ/L (136-145); TOTAL IRON BINDING CAPACITY 383 UG/DL (250-450); TOTAL PROTEIN 7.8 GM/DL (6.4-8.2)
[2021-03-15 13:43] LABS: CHOLESTEROL LEVEL 209 MG/DL (<200); CHOLESTEROL RISK RATIO 5.097 (<5); HDL CHOLESTEROL 41 MG/DL (>40); LDL CHOLESTEROL 134 MG/DL (<100); NON-HDL-C 168 MG/DL; TRIGLYCERIDES LEVEL 170 MG/DL (<150)
[2021-03-16 16:12] LABS: ANTI-MITOCHONDRIAL ANTIBODY <20.0 Units (0.0-20.0); CERULOPLASMIN 23.9 mg/dL (16.0-31.0); LIVER-KIDNEY MICROSOMAL ABY <20.1 Units (0.0-20.0)
== END ==
LOC: M LAB 09:49
PROVIDERS: ATTEND Internal Medicine
DX: R74.01 Elevation of levels of liver transaminase levels (principal)

== ENCOUNTER 2021-03-23 09:00 | Outpatient (RCR) | payer MEDICAID | END 2021-03-24 | LOC: M OUTALCOH 09:00 | PROVIDERS: ATTEND Psychiatry & Neurology Psychiatry | DX: F15.20 Other stimulant dependence, uncomplicated (principal); F17.200 Nicotine dependence, unspecified, uncomplicated ==

== ENCOUNTER 2021-04-21 15:00 | Outpatient (RCR) | payer MEDICAID | END 2021-04-24 | LOC: M OUTALCOH 15:00 | PROVIDERS: ATTEND Psychiatry & Neurology Psychiatry | DX: F15.20 Other stimulant dependence, uncomplicated (principal); F17.200 Nicotine dependence, unspecified, uncomplicated ==

== ENCOUNTER → 2021-05-07 | Outpatient (CLI) | payer OTHER ==
[2021-05-07 15:32] LABS: HEMOGLOBIN A1c 5.8 %
[2021-05-07 15:36] LABS: ALBUMIN 3.7 GM/DL (3.2-5.2); ALT/SGPT 62 U/L (12-78); BILIRUBIN,TOTAL 0.3 MG/DL (0.2-1.0); BLOOD UREA NITROGEN 14 MG/DL (7-18); CALCIUM LEVEL 9.2 MG/DL (8.5-10.1); CARBON DIOXIDE LEVEL 30 MEQ/L (21-32); CHLORIDE LEVEL 103 MEQ/L (98-107); CHOLESTEROL LEVEL 165 MG/DL (<200); CHOLESTEROL RISK RATIO 4.125 (<5); FERRITIN 177 NG/ML (26-388); GLOMERULAR FILTRATION RATE > 60.0 (>60); GLUCOSE, FASTING 115 MG/DL (70-100); HDL CHOLESTEROL 40 MG/DL (>40); IRON (FE) 44 UG/DL (65-175); LDL CHOLESTEROL 86 MG/DL (<100); NON-HDL-C 125 MG/DL; PERCENT SATURATION 11.3 % (19.7-50.0); POTASSIUM SERUM 3.8 MEQ/L (3.5-5.1); SODIUM LEVEL 139 MEQ/L (136-145); TOTAL IRON BINDING CAPACITY 390 UG/DL (250-450); TOTAL PROTEIN 7.4 GM/DL (6.4-8.2); TRIGLYCERIDES LEVEL 193 MG/DL (<150)
== END ==
LOC: M PLALAB 13:35
PROVIDERS: ATTEND Internal Medicine
DX: R74.01 Elevation of levels of liver transaminase levels (principal); E11.9 Type 2 diabetes mellitus without complications; E78.1 Pure hyperglyceridemia

== ENCOUNTER 2021-05-19 15:00 | Outpatient (RCR) | payer MEDICAID | END 2021-05-25 | LOC: M OUTALCOH 15:00 | PROVIDERS: ATTEND Psychiatry & Neurology Psychiatry | DX: F15.20 Other stimulant dependence, uncomplicated (principal); Z72.0 Tobacco use ==

== ENCOUNTER 2021-06-21 15:08 | Outpatient (RCR) | payer MEDICAID | END 2021-06-24 | LOC: M OUTALCOH 15:08 | PROVIDERS: ATTEND Psychiatry & Neurology Psychiatry | DX: F15.20 Other stimulant dependence, uncomplicated (principal); Z72.0 Tobacco use ==

== ENCOUNTER 2021-07-19 13:45 | Outpatient (RCR) | payer MEDICAID | END 2021-07-25 | LOC: M OUTALCOH 13:45 | PROVIDERS: ATTEND Psychiatry & Neurology Psychiatry | DX: F15.21 Other stimulant dependence, in remission (principal); F17.200 Nicotine dependence, unspecified, uncomplicated; F33.42 Major depressive disorder, recurrent, in full remission ==

== ENCOUNTER → 2021-09-29 | Outpatient (REF) | LOC: M LABSMTC 11:47 | PROVIDERS: ATTEND Pediatrics | DX: Z11.52 Encounter for screening for COVID-19 (principal) ==

== ENCOUNTER 2023-04-07 03:11 | Inpatient (IN) | payer MEDICAID, OTHER ==
[~2023-04-07] VITALS: Ht 172.7 cm; Wt 130.9 kg
[~2023-04-07 03:11] MED LIST changes: -OMEP-221 PO; +OMEP40CA5 PO
[2023-04-07 03:51] LABS: HEMATOCRIT 53.5 % (42.0-52.0); HEMOGLOBIN 18.4 g/dl (13.5-17.5); MEAN CORPUSCULAR HEMOGLOBIN 28.6 pg (27.0-33.0); MEAN CORPUSCULAR HGB CONC 34.4 g/dl (32.0-36.5); MEAN CORPUSCULAR VOLUME 83.1 fl (80.0-96.0); RED BLOOD COUNT 6.44 10^6/uL (4.30-6.10); WHITE BLOOD COUNT 11.6 10^3/uL (4.0-10.0)
[2023-04-07 04:00] LABS: PLATELET COUNT, AUTOMATED 92 10^3/uL (150-450)
[2023-04-07 04:15] LABS: ETHYL ALCOHOL (ETHANOL) < 0.003 % (0.000-0.010)
[2023-04-07 04:16] LABS: SALICYLATE LEVEL < 3.0 MG/DL (<30)
[2023-04-07 04:17] LABS: ACETAMINOPHEN LEVEL < 2.0 UG/ML (10.0-20.0)
[2023-04-07 04:22] LABS: ALBUMIN 3.9 G/DL (3.2-5.2); ALKALINE PHOSPHATASE 99 U/L (46-116); ALT/SGPT 94 U/L (7.0-40); AST/SGOT < 8 U/L (<34); BILIRUBIN,DIRECT 0.3 MG/DL (<0.4); BILIRUBIN,TOTAL 1.1 MG/DL (0.3-1.2); BLOOD UREA NITROGEN 11 MG/DL (9-23); CALCIUM LEVEL 9.1 MG/DL (8.5-10.1); CARBON DIOXIDE LEVEL 34 MMOL/L (20-31); CHLORIDE LEVEL 99 MMOL/L (98-107); CREATININE FOR GFR 0.72 MG/DL (0.70-1.30); GLOMERULAR FILTRATION RATE > 60.0 (>60); GLUCOSE, FASTING 259 MG/DL (60-100); POTASSIUM SERUM 3.3 MMOL/L (3.5-5.1); SODIUM LEVEL 137 MMOL/L (136-145); THYROID STIMULATING HORMONE 1.996 uIU/ML (0.55-4.78); TOTAL PROTEIN 7.7 G/DL (5.7-8.2)
[2023-04-07] MEDS: NICOTINE 21MG/24HR 1 EA TRANSDERMAL TD SCH (09:00)
[2023-04-07] MEDS ORDERED: MED REC IN PROGRESS XX SCH (09:15)
[2023-04-07] MEDS ORDERED: HOME MED LIST COMPLETE! XX SCH (09:55)
[2023-04-07 13:56] LABS: BARBITURATES URINE NEGATIVE (NEGATIVE); COCAINE METABOLITE URINE NEGATIVE (NEGATIVE); PHENCYCLIDINE URINE NEGATIVE (NEGATIVE)
[2023-04-07 13:57] LABS: BENZODIAZEPINES URINE NEGATIVE (NEGATIVE); METHADONE URINE NEGATIVE (NEGATIVE); OPIATES URINE NEGATIVE (NEGATIVE)
[2023-04-07 14:00] LABS: AMPHETAMINES LEVEL URINE POSITIVE (NEGATIVE); CANNABINOIDS URINE POSITIVE (NEGATIVE)
[2023-04-07] MEDS ORDERED: diphenhydrAMINE 25MG CAP PO PRN (14:25)
[2023-04-07] MEDS ORDERED: IBUPROFEN 400MG TAB PO PRN (14:25)
[2023-04-07] MEDS ORDERED: ACETAMINOPHEN TAB 650MG DOSE (2X325MG) PO PRN (14:25)
[2023-04-07] MEDS ORDERED: MOM 30ML SUSPENSION UDC PO PRN (14:25)
[2023-04-07] MEDS ORDERED: MAALOX 30 ML SUSP *UDC PO PRN (14:25)
[2023-04-07] MEDS ORDERED: LORazepam 2 MG/ML 1ML VIAL IM STA (14:27)
[2023-04-07] MEDS ORDERED: diphenhydrAMINE 50MG/ML VIAL IM ONE (14:30)
[2023-04-07] MEDS ORDERED: HALOPERIDOL 5MG/ML 1ML VIAL IM ONE (14:30)
[2023-04-07] MEDS ORDERED: IBUPROFEN 400MG TAB PO STA (14:47)
[2023-04-07] MEDS ORDERED: CEPHALEXIN 500 MG CAP PO SCH (16:35)
[2023-04-07] MEDS ORDERED: BACITRACIN OINTMENT 30GM TUBE TOP PRN (18:40)
[2023-04-08 00:07] VITALS: BP 128/72; TEMP 98.2; O2SAT 99
[2023-04-08 06:24] VITALS: BP 122/89; TEMP 97.4; O2SAT 98
[2023-04-08] MEDS: NICOTINE 21MG/24HR 1 EA TRANSDERMAL TD SCH (07:39)
[2023-04-08] MEDS ORDERED: POTASSIUM CHLORIDE 10MEQ SR TABLET PO ONE (14:25)
[2023-04-08 15:07] LABS: HEMOGLOBIN A1c 9.8 % (4.0-6.0)
[2023-04-08 18:47] VITALS: BP 122/68; TEMP 98.5; O2SAT 95
[2023-04-08] MEDS: traZODone 50 MG TAB PO PRN (21:16)
[2023-04-09 06:34] VITALS: BP 133/67; TEMP 96.8; O2SAT 95
[2023-04-09] MEDS: NICOTINE 21MG/24HR 1 EA TRANSDERMAL TD SCH (09:13)
[2023-04-09] MEDS ORDERED: DEXTROSE 50% 50ML SYRINGE IV PRN (09:40)
[2023-04-09] MEDS ORDERED: GLUCOSE 4GM CHEW TABLET PO PRN (09:40)
[2023-04-09] MEDS ORDERED: GLUCAGON INJ 1MG VIAL SC PRN (09:40)
[2023-04-09] MEDS: INSULIN LISPRO (NovoLOG) PER UNIT SC SCH ×3 (12:26→20:34)
[2023-04-09 18:00] VITALS: BP 145/96; TEMP 97.7; O2SAT 97
[2023-04-09] MEDS: DIVALPROEX 125 MG TAB PO SCH (20:34)
[2023-04-09] MEDS: traZODone 50 MG TAB PO PRN (21:43)
[2023-04-10 06:37] VITALS: BP 122/77; TEMP 98.7; O2SAT 97
[2023-04-10] MEDS: INSULIN LISPRO (NovoLOG) PER UNIT SC SCH ×4 (06:42→20:29)
[2023-04-10] MEDS: NICOTINE 21MG/24HR 1 EA TRANSDERMAL TD SCH (07:59)
[2023-04-10] MEDS: VENLAFAXINE **XR** 37.5 MG CAPSULE PO SCH (10:25)
[2023-04-10 18:17] VITALS: BP 123/72; TEMP 98.5; O2SAT 97
[2023-04-10] MEDS: DIVALPROEX 125 MG TAB PO SCH (20:29)
[2023-04-10] MEDS: traZODone 50 MG TAB PO PRN (20:53)
[2023-04-11] MEDS: INSULIN LISPRO (NovoLOG) PER UNIT SC SCH ×3 (06:30→17:38)
[2023-04-11 06:45] VITALS: BP 140/98; TEMP 97.7; O2SAT 97
[2023-04-11] MEDS: VENLAFAXINE **XR** 37.5 MG CAPSULE PO SCH (07:42)
[2023-04-11] MEDS: NICOTINE 21MG/24HR 1 EA TRANSDERMAL TD SCH (07:42)
[2023-04-11] MEDS ORDERED: DEPA1TAB PO (09:33)
[2023-04-11] MEDS ORDERED: VENL37.598 PO (09:33)
[2023-04-11] MEDS ORDERED: NICO21PAT TD (09:33)
[2023-04-11] MEDS ORDERED: TRAZ-252 PO (09:33)
[2023-04-11] MEDS: SITagliptin 50 MG TAB (JANUVIA) PO SCH (15:30)
[2023-04-11 16:48] VITALS: BP 101/56; TEMP 97.8; O2SAT 100
[2023-04-11 16:55] VITALS: BP 132/81; TEMP 98.2; O2SAT 99
[2023-04-11] MEDS: metFORMIN (GLUCOPHAGE) 1000MG TABLET PO SCH (17:22)
[2023-04-11] MEDS: DIVALPROEX 125 MG TAB PO SCH (20:58)
[2023-04-11] MEDS ORDERED: INSULIN LISPRO (NovoLOG) PER UNIT SC SCH (21:00)
[2023-04-11] MEDS: traZODone 50 MG TAB PO PRN (21:52)
[2023-04-12] MEDS: INSULIN LISPRO (NovoLOG) PER UNIT SC SCH (06:44)
[2023-04-12 06:57] VITALS: BP 168/80; TEMP 97.7; O2SAT 97
[2023-04-12] MEDS ORDERED: SITA50TAB PO (08:04)
[2023-04-12] MEDS ORDERED: METF10004 PO (08:04)
[2023-04-12] MEDS: metFORMIN (GLUCOPHAGE) 1000MG TABLET PO SCH (08:20)
[2023-04-12] MEDS: SITagliptin 50 MG TAB (JANUVIA) PO SCH (08:20)
[2023-04-12] MEDS: VENLAFAXINE **XR** 37.5 MG CAPSULE PO SCH (08:20)
[2023-04-12] MEDS: NICOTINE 21MG/24HR 1 EA TRANSDERMAL TD SCH (08:21)
[2023-04-12] MEDS ORDERED: SITagliptin 50 MG TAB (JANUVIA) PO SCH (09:00)
== END 2023-04-12 11:33 | disposition home or self-care (01) | DRG 753 ==
LOC: M ED 03:11 → M ED INP 14:21 → M PSY 20:36
PROVIDERS: ADMIT Student in an Organized Health Care Education/Training Program; ATTEND Student in an Organized Health Care Education/Training Program
DX: F32.89 Other specified depressive episodes (principal); Z68.41 Body mass index [BMI] 40.0-44.9, adult; R45.851 Suicidal ideations; E11.9 Type 2 diabetes mellitus without complications; E66.01 Morbid (severe) obesity due to excess calories; Z91.128 Patient's intentional underdosing of medication regimen for other reason; F43.10 Post-traumatic stress disorder, unspecified; F31.9 Bipolar disorder, unspecified; F15.90 Other stimulant use, unspecified, uncomplicated; I10 Essential (primary) hypertension; E87.6 Hypokalemia; Z88.0 Allergy status to penicillin; S62.632A Displaced fracture of distal phalanx of right middle finger, initial encounter for closed fracture; W23.0XXA Caught, crushed, jammed, or pinched between moving objects, initial encounter; Y92.238 Other place in hospital as the place of occurrence of the external cause; F17.200 Nicotine dependence, unspecified, uncomplicated; F12.90 Cannabis use, unspecified, uncomplicated

== ENCOUNTER → 2023-05-22 | Outpatient (CLI) | payer OTHER ==
[~2023-05-22] MED LIST changes: +DEPA1TAB PO; +METF10004 PO; +NICO21PAT TD; +SITA50TAB PO; +TRAZ-252 PO; +VENL37.598 PO
== END ==
LOC: M SOG 08:01
PROVIDERS: ATTEND Physician Assistant
DX: S62.633A Displaced fracture of distal phalanx of left middle finger, initial encounter for closed fracture (principal); X58.XXXA Exposure to other specified factors, initial encounter; Y92.9 Unspecified place or not applicable; Z53.9 Procedure and treatment not carried out, unspecified reason

== ENCOUNTER 2023-09-16 17:59 | Inpatient (IN) | payer MEDICAID, OTHER ==
[~2023-09-16] VITALS: Ht 175.3 cm; Wt 121.1 kg
[2023-09-16 19:03] LABS: BASO # 0.1 10^3/uL (0.0-0.2); BASO % 0.5 % (0.0-1.0); EOS # 0.2 10^3/uL (0.0-0.5); EOS % 1.6 % (0.0-3.0); HEMATOCRIT 48.3 % (42.0-52.0); HEMOGLOBIN 17.2 g/dl (13.5-17.5); LYMPH # 2.2 10^3/uL (1.5-5.0); LYMPH % 16.7 % (24.0-44.0); MEAN CORPUSCULAR HEMOGLOBIN 29.4 pg (27.0-33.0); MEAN CORPUSCULAR HGB CONC 35.6 g/dl (32.0-36.5); MEAN CORPUSCULAR VOLUME 82.6 fl (80.0-96.0); MONO # 0.8 10^3/uL (0.0-0.8); MONO % 6.2 % (2.0-8.0); NEUTROPHILS % 74.7 % (36.0-66.0); RED BLOOD COUNT 5.85 10^6/uL (4.30-6.10); WHITE BLOOD COUNT 13.4 10^3/uL (4.0-10.0)
[2023-09-16 19:05] LABS: PLATELET COUNT, AUTOMATED 71 10^3/uL (150-450)
[2023-09-16 19:19] LABS: ALBUMIN 3.3 G/DL (3.2-5.2); BILIRUBIN,DIRECT 0.2 MG/DL (<0.4); BILIRUBIN,TOTAL 0.6 MG/DL (0.3-1.2); TOTAL PROTEIN 6.8 G/DL (5.7-8.2)
[2023-09-16] MEDS: GASTROGRAFIN SOLUTION 30ML PO SCH ×2 (20:31→20:59)
[2023-09-16] MEDS ORDERED: ISOVUE-370 76% 100ML VIAL As Ordered ONE (21:47)
[2023-09-16] MEDS ORDERED: MORPHINE 4 MG/ML 1ML VIAL IV ONE (23:10)
[2023-09-16] MEDS ORDERED: ONDANSETRON 4MG 2ML VIAL IV ONE (23:10)
[2023-09-16] MEDS ORDERED: LORazepam 2 MG/ML 1ML VIAL IV STA (23:20)
[2023-09-17] VITALS (8 sets, daily range): BP systolic 108–128; BP diastolic 61–85; TEMP 96.8–98.1; O2SAT 92–99
[2023-09-17] MEDS ORDERED: HOME MED LIST COMPLETE! XX SCH (00:10)
[2023-09-17] MEDS ORDERED: HEPARIN SOD (PORCINE) 5000UNITS/ML 1ML VIAL/SYRINGE SC SCH (00:35)
[2023-09-17] MEDS ORDERED: GLUCOSE 4GM CHEW TABLET PO PRN (00:55)
[2023-09-17] MEDS ORDERED: GLUCAGON INJ 1MG VIAL SC PRN (00:55)
[2023-09-17] MEDS ORDERED: DEXTROSE 50% 50ML SYRINGE IV PRN (00:55)
[2023-09-17] MEDS: INSULIN LISPRO (NovoLOG) PER UNIT SC SCH ×6 (01:29→23:31)
[2023-09-17] MEDS: NS 1,000 ML IV SCH ×3 (01:30→12:15)
[2023-09-17 07:21] LABS: BASO # 0.1 10^3/uL (0.0-0.2); BASO % 0.5 % (0.0-1.0); EOS # 0.1 10^3/uL (0.0-0.5); EOS % 1.2 % (0.0-3.0); HEMATOCRIT 47.9 % (42.0-52.0); HEMOGLOBIN 16.6 g/dl (13.5-17.5); LYMPH # 1.4 10^3/uL (1.5-5.0); MEAN CORPUSCULAR HEMOGLOBIN 29.2 pg (27.0-33.0); MEAN CORPUSCULAR HGB CONC 34.7 g/dl (32.0-36.5); MEAN CORPUSCULAR VOLUME 84.3 fl (80.0-96.0); MONO # 0.8 10^3/uL (0.0-0.8); MONO % 8.4 % (2.0-8.0); NEUTROPHILS % 74.5 % (36.0-66.0); RED BLOOD COUNT 5.68 10^6/uL (4.30-6.10); WHITE BLOOD COUNT 9.4 10^3/uL (4.0-10.0)
[2023-09-17 07:23] LABS: PLATELET COUNT, AUTOMATED 69 10^3/uL (150-450)
[2023-09-17 07:52] LABS: ALKALINE PHOSPHATASE 80 U/L (46-116); ALT/SGPT 54 U/L (7.0-40); AST/SGOT 25 U/L (<34); BILIRUBIN,TOTAL 0.6 MG/DL (0.3-1.2); BLOOD UREA NITROGEN 11 MG/DL (9-23); CALCIUM LEVEL 8.3 MG/DL (8.5-10.1); CARBON DIOXIDE LEVEL 28 MMOL/L (20-31); CHLORIDE LEVEL 103 MMOL/L (98-107); CREATININE FOR GFR 0.62 MG/DL (0.70-1.30); GLOMERULAR FILTRATION RATE > 60.0 (>60); GLUCOSE, FASTING 189 MG/DL (60-100); POTASSIUM SERUM 3.8 MMOL/L (3.5-5.1); SODIUM LEVEL 137 MMOL/L (136-145); TOTAL PROTEIN 6.4 G/DL (5.7-8.2)
[2023-09-17] MEDS ORDERED: LIDOCAINE 2% 100MG/5ML SDV (FOR ANES.) As Ordered ONE (12:26)
[2023-09-17] MEDS ORDERED: propofoL 200 MG/20 ML VIAL As Ordered ONE (12:26)
[2023-09-17] MEDS ORDERED: METOCLOPRAMIDE INJ 10MG/2ML VIAL As Ordered ONE (12:26)
[2023-09-17] MEDS ORDERED: ROCURONIUM BROMIDE 50MG/5ML VIAL As Ordered ONE ×2 (12:26→12:55)
[2023-09-17] MEDS ORDERED: MIDAZOLAM INJ 2MG/2ML VIAL As Ordered ONE (12:26)
[2023-09-17] MEDS ORDERED: ONDANSETRON 4MG 2ML VIAL As Ordered ONE (12:26)
[2023-09-17] MEDS ORDERED: VASOPRESSIN INJ 20UNITS/ML 1ML VIAL As Ordered ONE (12:26)
[2023-09-17] MEDS ORDERED: SUGAMMADEX SODIUM 500 MG/5 ML VIAL (BRIDION) As Ordered ONE (12:26)
[2023-09-17] MEDS ORDERED: PHENYLephrine 500MCG 5ML (100MCG/ML) SYRINGE As Ordered ONE (12:26)
[2023-09-17] MEDS ORDERED: fentaNYL 250 MCG/5 ML INJECTION As Ordered ONE (12:26)
[2023-09-17] MEDS ORDERED: ceFAZolin 2 GM/D5W 50 ML IV BAG As Ordered ONE (12:33)
[2023-09-17] MEDS ORDERED: ACETAMINOPHEN 1000MG 100ML IV BAG As Ordered ONE (12:41)
[2023-09-17] MEDS ORDERED: dexmedeTOMIDine (4MCG/ML)200MCG/50ML BTL (PRECEDEX) As Ordered ONE (12:41)
[2023-09-17] MEDS ORDERED: INSULIN LISPRO (NovoLOG) PER UNIT SC PRN (14:55)
[2023-09-17] MEDS ORDERED: LR 1,000 ML IV SCH (14:55)
[2023-09-17] MEDS ORDERED: KETOROLAC 60MG 2ML VIAL As Ordered ONE (14:55)
[2023-09-17] MEDS ORDERED: oxyCODONE 5MG TAB PO PRN (14:55)
[2023-09-17] MEDS ORDERED: ONDANSETRON 4MG 2ML VIAL IV PRN (14:55)
[2023-09-17] MEDS ORDERED: fentaNYL 100 MCG/2 ML INJECTION IV PRN (14:55)
[2023-09-17] MEDS: HYDROMORPHONE HCL 0.5 MG/ 0.5 ML SYRINGE IV PRN ×3 (15:11→23:32)
[2023-09-18] MEDS: HYDROMORPHONE HCL 0.5 MG/ 0.5 ML SYRINGE IV PRN ×5 (04:43→19:56)
[2023-09-18] MEDS: INSULIN LISPRO (NovoLOG) PER UNIT SC SCH ×4 (05:46→21:00)
[2023-09-18 06:00] VITALS: BP 113/69; TEMP 97.9; O2SAT 95
[2023-09-18 06:51] LABS: BASO % 0.3 % (0.0-1.0); EOS # 0.1 10^3/uL (0.0-0.5); EOS % 0.9 % (0.0-3.0); HEMATOCRIT 43.6 % (42.0-52.0); LYMPH % 17.1 % (24.0-44.0); MEAN CORPUSCULAR HGB CONC 34.4 g/dl (32.0-36.5); MEAN CORPUSCULAR VOLUME 84.3 fl (80.0-96.0); MONO % 8.4 % (2.0-8.0); NEUTROPHILS # 8.6 10^3/uL (1.5-8.5); NEUTROPHILS % 72.8 % (36.0-66.0); RED BLOOD COUNT 5.17 10^6/uL (4.30-6.10); WHITE BLOOD COUNT 11.8 10^3/uL (4.0-10.0)
[2023-09-18 06:54] LABS: PLATELET COUNT, AUTOMATED 83 10^3/uL (150-450)
[2023-09-18 07:32] LABS: ALBUMIN 2.8 G/DL (3.2-5.2); ALKALINE PHOSPHATASE 69 U/L (46-116); ALT/SGPT 41 U/L (7.0-40); AST/SGOT 18 U/L (<34); BILIRUBIN,TOTAL 0.6 MG/DL (0.3-1.2); BLOOD UREA NITROGEN 6 MG/DL (9-23); CALCIUM LEVEL 8.4 MG/DL (8.5-10.1); CARBON DIOXIDE LEVEL 29 MMOL/L (20-31); CHLORIDE LEVEL 103 MMOL/L (98-107); CREATININE FOR GFR 0.62 MG/DL (0.70-1.30); GLOMERULAR FILTRATION RATE > 60.0 (>60); GLUCOSE, FASTING 168 MG/DL (60-100); POTASSIUM SERUM 3.6 MMOL/L (3.5-5.1); SODIUM LEVEL 138 MMOL/L (136-145); TOTAL PROTEIN 5.9 G/DL (5.7-8.2)
[2023-09-18] MEDS: NICOTINE 21MG/24HR 1 EA TRANSDERMAL TD PRN (09:28)
[2023-09-18 10:15] VITALS: BP 117/72; TEMP 98; O2SAT 96
[2023-09-18] MEDS: NS 1,000 ML IV SCH ×2 (12:59→19:57)
[2023-09-18] MEDS ORDERED: ACETAMINOPHEN TAB 650MG DOSE (2X325MG) PO PRN (21:05)
[2023-09-18 22:00] VITALS: BP 134/85; TEMP 98.1; O2SAT 98
[2023-09-19] MEDS: PERCOCET 5MG/325MG TAB PO PRN ×3 (05:06→14:20)
[2023-09-19 06:00] VITALS: BP 134/97; TEMP 97.6; O2SAT 99
[2023-09-19 07:11] LABS: BASO # 0.1 10^3/uL (0.0-0.2); BASO % 0.5 % (0.0-1.0); EOS # 0.1 10^3/uL (0.0-0.5); EOS % 1.4 % (0.0-3.0); HEMATOCRIT 42.8 % (42.0-52.0); HEMOGLOBIN 14.8 g/dl (13.5-17.5); LYMPH # 1.4 10^3/uL (1.5-5.0); LYMPH % 15.7 % (24.0-44.0); MEAN CORPUSCULAR HEMOGLOBIN 29.1 pg (27.0-33.0); MEAN CORPUSCULAR HGB CONC 34.6 g/dl (32.0-36.5); MEAN CORPUSCULAR VOLUME 84.1 fl (80.0-96.0); MONO # 0.8 10^3/uL (0.0-0.8); NEUTROPHILS # 6.7 10^3/uL (1.5-8.5); NEUTROPHILS % 72.9 % (36.0-66.0); RED BLOOD COUNT 5.09 10^6/uL (4.30-6.10); WHITE BLOOD COUNT 9.2 10^3/uL (4.0-10.0)
[2023-09-19 07:19] LABS: PLATELET COUNT, AUTOMATED 98 10^3/uL (150-450)
[2023-09-19] MEDS ORDERED: PERCOCET 5MG/325MG TAB PO PRN (07:45)
[2023-09-19 07:58] LABS: ALBUMIN 2.7 G/DL (3.2-5.2); ALKALINE PHOSPHATASE 66 U/L (46-116); ALT/SGPT 32 U/L (7.0-40); AST/SGOT 14 U/L (<34); BILIRUBIN,TOTAL 0.5 MG/DL (0.3-1.2); BLOOD UREA NITROGEN 6 MG/DL (9-23); CALCIUM LEVEL 8.2 MG/DL (8.5-10.1); CARBON DIOXIDE LEVEL 28 MMOL/L (20-31); CHLORIDE LEVEL 103 MMOL/L (98-107); CREATININE FOR GFR 0.54 MG/DL (0.70-1.30); GLOMERULAR FILTRATION RATE > 60.0 (>60); GLUCOSE, FASTING 182 MG/DL (60-100); POTASSIUM SERUM 3.5 MMOL/L (3.5-5.1); SODIUM LEVEL 136 MMOL/L (136-145); TOTAL PROTEIN 5.8 G/DL (5.7-8.2)
[2023-09-19] MEDS: INSULIN LISPRO (NovoLOG) PER UNIT SC SCH ×4 (08:52→21:00)
[2023-09-19] MEDS: ENOXAPARIN 40MG/0.4ML SYRINGE (J1650 PER 10MG) SC SCH (09:00)
[2023-09-19] MEDS: NICOTINE 21MG/24HR 1 EA TRANSDERMAL TD PRN (09:16)
[2023-09-19 14:00] VITALS: BP 129/91; TEMP 97.9; O2SAT 98
[2023-09-19 14:18] LABS: CHOLESTEROL LEVEL 153 MG/DL (<200); CHOLESTEROL RISK RATIO 3.98 (<5); HDL CHOLESTEROL 38.4 MG/DL (>40); LDL CHOLESTEROL 84.2 MG/DL (<100); NON-HDL-C 114.6 MG/DL; TRIGLYCERIDES LEVEL 152 MG/DL (<150)
[2023-09-19 14:37] LABS: HEMOGLOBIN A1c 8.4 % (4.0-6.0)
[2023-09-19 21:25] VITALS: BP 158/78; TEMP 97.6; O2SAT 97
[2023-09-20 05:51] VITALS: BP 148/98; TEMP 97.5; O2SAT 98
[2023-09-20] MEDS: PERCOCET 5MG/325MG TAB PO PRN (05:51)
[2023-09-20 06:33] LABS: BASO # 0.1 10^3/uL (0.0-0.2); BASO % 0.5 % (0.0-1.0); EOS # 0.2 10^3/uL (0.0-0.5); EOS % 1.7 % (0.0-3.0); HEMOGLOBIN 15.2 g/dl (13.5-17.5); LYMPH # 1.7 10^3/uL (1.5-5.0); LYMPH % 18.6 % (24.0-44.0); MEAN CORPUSCULAR HEMOGLOBIN 28.8 pg (27.0-33.0); MEAN CORPUSCULAR HGB CONC 33.8 g/dl (32.0-36.5); MEAN CORPUSCULAR VOLUME 85.2 fl (80.0-96.0); MONO % 10.5 % (2.0-8.0); NEUTROPHILS # 6.2 10^3/uL (1.5-8.5); NEUTROPHILS % 68.3 % (36.0-66.0); PLATELET COUNT, AUTOMATED 139 10^3/uL (150-450); RED BLOOD COUNT 5.28 10^6/uL (4.30-6.10); WHITE BLOOD COUNT 9.2 10^3/uL (4.0-10.0)
[2023-09-20 06:59] LABS: ALKALINE PHOSPHATASE 66 U/L (46-116); ALT/SGPT 32 U/L (7.0-40); AST/SGOT 17 U/L (<34); BILIRUBIN,TOTAL 0.6 MG/DL (0.3-1.2); BLOOD UREA NITROGEN 9 MG/DL (9-23); CALCIUM LEVEL 8.5 MG/DL (8.5-10.1); CARBON DIOXIDE LEVEL 32 MMOL/L (20-31); CHLORIDE LEVEL 100 MMOL/L (98-107); CREATININE FOR GFR 0.66 MG/DL (0.70-1.30); GLOMERULAR FILTRATION RATE > 60.0 (>60); GLUCOSE, FASTING 186 MG/DL (60-100); POTASSIUM SERUM 3.5 MMOL/L (3.5-5.1); SODIUM LEVEL 137 MMOL/L (136-145); TOTAL PROTEIN 6.3 G/DL (5.7-8.2)
[2023-09-20] MEDS: INSULIN LISPRO (NovoLOG) PER UNIT SC SCH ×4 (07:51→20:37)
[2023-09-20] MEDS: NICOTINE 21MG/24HR 1 EA TRANSDERMAL TD PRN (08:28)
[2023-09-20] MEDS: ENOXAPARIN 40MG/0.4ML SYRINGE (J1650 PER 10MG) SC SCH (08:28)
[2023-09-20] MEDS ORDERED: MIRALAX *UNIT DOSE* 17GM PACKET PO SCH (09:00)
[2023-09-20] MEDS ORDERED: IBUPROFEN 800 MG TAB PO PRN (13:05)
[2023-09-20] MEDS: SENNA 8.6 MG TAB (SENOKOT) PO SCH (13:58)
[2023-09-20] MEDS: BISACODYL 10MG SUPP PR SCH (17:44)
[2023-09-20 20:30] VITALS: BP 140/95; TEMP 97.9; O2SAT 97
[2023-09-20] MEDS: MIRALAX *UNIT DOSE* 17GM PACKET PO SCH (20:48)
[2023-09-21 05:56] LABS: BASO # 0.1 10^3/uL (0.0-0.2); BASO % 0.6 % (0.0-1.0); EOS # 0.2 10^3/uL (0.0-0.5); EOS % 3.1 % (0.0-3.0); HEMATOCRIT 44.5 % (42.0-52.0); HEMOGLOBIN 15.4 g/dl (13.5-17.5); LYMPH # 1.8 10^3/uL (1.5-5.0); LYMPH % 23.6 % (24.0-44.0); MEAN CORPUSCULAR HEMOGLOBIN 29.2 pg (27.0-33.0); MEAN CORPUSCULAR HGB CONC 34.6 g/dl (32.0-36.5); MEAN CORPUSCULAR VOLUME 84.4 fl (80.0-96.0); MONO # 0.9 10^3/uL (0.0-0.8); MONO % 11.7 % (2.0-8.0); NEUTROPHILS # 4.7 10^3/uL (1.5-8.5); NEUTROPHILS % 60.6 % (36.0-66.0); PLATELET COUNT, AUTOMATED 159 10^3/uL (150-450); RED BLOOD COUNT 5.27 10^6/uL (4.30-6.10); WHITE BLOOD COUNT 7.8 10^3/uL (4.0-10.0)
[2023-09-21 06:19] VITALS: BP 133/91; TEMP 97.7; O2SAT 97
[2023-09-21 06:20] LABS: ALBUMIN 2.9 G/DL (3.2-5.2); ALKALINE PHOSPHATASE 67 U/L (46-116); ALT/SGPT 35 U/L (7.0-40); AST/SGOT 21 U/L (<34); BILIRUBIN,TOTAL 0.5 MG/DL (0.3-1.2); BLOOD UREA NITROGEN 10 MG/DL (9-23); CALCIUM LEVEL 8.6 MG/DL (8.5-10.1); CARBON DIOXIDE LEVEL 31 MMOL/L (20-31); CHLORIDE LEVEL 100 MMOL/L (98-107); CREATININE FOR GFR 0.64 MG/DL (0.70-1.30); GLOMERULAR FILTRATION RATE > 60.0 (>60); GLUCOSE, FASTING 194 MG/DL (60-100); POTASSIUM SERUM 4.4 MMOL/L (3.5-5.1); SODIUM LEVEL 137 MMOL/L (136-145); TOTAL PROTEIN 6.3 G/DL (5.7-8.2)
[2023-09-21] MEDS: INSULIN LISPRO (NovoLOG) PER UNIT SC SCH ×2 (08:03→12:22)
[2023-09-21] MEDS: LACTULOSE 20GM/30ML SYRUP UDC PO SCH ×2 (08:03→12:22)
[2023-09-21] MEDS: MIRALAX *UNIT DOSE* 17GM PACKET PO SCH (08:04)
[2023-09-21] MEDS: SENNA 8.6 MG TAB (SENOKOT) PO SCH (08:04)
[2023-09-21] MEDS: BISACODYL 10MG SUPP PR SCH (08:04)
[2023-09-21] MEDS: ENOXAPARIN 40MG/0.4ML SYRINGE (J1650 PER 10MG) SC SCH (08:04)
[2023-09-21] MEDS: NICOTINE 21MG/24HR 1 EA TRANSDERMAL TD PRN (11:09)
[2023-09-21] MEDS ORDERED: SENO8.6T5 PO (11:28)
[2023-09-21] MEDS ORDERED: PERCOCET PO (11:28)
[2023-09-21] MEDS ORDERED: NICO21PAT TD (11:28)
[2023-09-21] MEDS ORDERED: IBUP80TA PO (11:28)
[2023-09-21] MEDS ORDERED: MIRA3350 PO (11:28)
[2023-09-21] MEDS ORDERED: METF500T13 PO (11:31)
[2023-09-21] MEDS ORDERED: METF-877 PO (11:35)
== END 2023-09-21 14:20 | disposition home or self-care (01) | DRG 227 ==
LOC: EDBD 17:59 → M ED 17:59 → M ED INP 23:58 → M MS5PR 09-17 02:07
PROVIDERS: ADMIT Internal Medicine; ATTEND Student in an Organized Health Care Education/Training Program
PROC: 8E0W4CZ Robotic Assisted Procedure of Trunk Region, Percutaneous Endoscopic Approach (ICD-10-PCS; 2023-09-17)
PROC: 0WUF4JZ Supplement Abdominal Wall with Synthetic Substitute, Percutaneous Endoscopic Approach (ICD-10-PCS; principal; 2023-09-17 11:00)
DX: K43.0 Incisional hernia with obstruction, without gangrene (principal); D69.6 Thrombocytopenia, unspecified; I10 Essential (primary) hypertension; E11.9 Type 2 diabetes mellitus without complications; E66.9 Obesity, unspecified; F17.210 Nicotine dependence, cigarettes, uncomplicated; F32.A Depression, unspecified; F43.10 Post-traumatic stress disorder, unspecified; Z88.0 Allergy status to penicillin; Z79.899 Other long term (current) drug therapy; F12.10 Cannabis abuse, uncomplicated

== ENCOUNTER 2025-01-06 20:40 | Emergency (ER) | payer MEDICAID, OTHER ==
[~2025-01-06] VITALS: Ht 175.3 cm; Wt 110.3 kg
[~2025-01-06 20:40] MED LIST changes: +IBUP80TA PO; +METF-877 PO; +METF500T13 PO; +MIRA3350 PO; +PERCOCET PO; +SENO8.6T5 PO
[2025-01-06 21:04] VITALS: TEMP 96
[2025-01-07] MEDS: ONDANSETRON 4MG 2ML VIAL IV ONE (02:58)
[2025-01-07] MEDS: MORPHINE 4 MG/ML 1ML VIAL IV PRN (02:59)
[2025-01-07 03:31] VITALS: BP 116/58
[2025-01-07 03:32] VITALS: O2SAT 94
== END 2025-01-07 03:35 | disposition short-term general hospital (02) ==
LOC: M ED 20:40 → EDBD 20:40 → M ED 01-07 03:35
DX: S02.32XA Fracture of orbital floor, left side, initial encounter for closed fracture (principal); S00.12XA Contusion of left eyelid and periocular area, initial encounter; Y04.0XXA Assault by unarmed brawl or fight, initial encounter; R59.0 Localized enlarged lymph nodes; E11.9 Type 2 diabetes mellitus without complications; F17.200 Nicotine dependence, unspecified, uncomplicated; F12.10 Cannabis abuse, uncomplicated; Z79.4 Long term (current) use of insulin; Z79.899 Other long term (current) drug therapy; Z79.1 Long term (current) use of non-steroidal anti-inflammatories (NSAID); Z88.0 Allergy status to penicillin; Y99.9 Unspecified external cause status; Y93.89 Activity, other specified; Y92.9 Unspecified place or not applicable
CPT/HCPCS: 70450; 70486; 72125; 96374; 96375; 99284; J2405

== ENCOUNTER 2025-01-10 08:18 | Emergency (ER) | payer OTHER ==
[~2025-01-10] VITALS: Ht 175.3 cm; Wt 106.0 kg
[2025-01-10] MEDS: fentaNYL 100 MCG/2 ML INJECTION IV ONE (09:05)
[2025-01-10 09:53] VITALS: BP 115/61; TEMP 98.3; O2SAT 96
== END 2025-01-10 09:59 | disposition short-term general hospital (02) ==
LOC: EDBD 08:18 → M ED 08:18
DX: S02.32XA Fracture of orbital floor, left side, initial encounter for closed fracture (principal); Y92.9 Unspecified place or not applicable; Y93.9 Activity, unspecified; Y99.9 Unspecified external cause status; E11.9 Type 2 diabetes mellitus without complications; F41.9 Anxiety disorder, unspecified; F32.A Depression, unspecified; F17.210 Nicotine dependence, cigarettes, uncomplicated; Z88.0 Allergy status to penicillin; Z79.1 Long term (current) use of non-steroidal anti-inflammatories (NSAID); Z79.84 Long term (current) use of oral hypoglycemic drugs
CPT/HCPCS: 96374; 99284; J3010